=== PATIENT | female | born 1940 | race Caucasian/White ===

== ENCOUNTER 2016-09-15 17:36 | Inpatient (IN) ==
--- NOTE | 2016-09-15 19:22 | PROVIDER DOCUMENTATION ---
HPI-General Adult - General Chief Complaint: Extremity Pain Stated Complaint: FOOT INJURY Time Seen by Provider: 09/15/16 19:07 Source: patient Allergies/Adverse Reactions: Patient Allergies Allergy/AdvReac Type Severity Reaction Status Date / Time No Known Allergies Allergy Verified 12/22/13 21:06 Home Medications: Home Medication List Medication Instructions Recorded Confirmed Last Taken Type Amitriptyline HCl 100 mg PO QHS 12/22/13 12/22/13 12/21/13 History Amlodipine Besylate 5 mg PO DAILY 12/22/13 12/22/13 12/22/13 09:00 History Clopidogrel [Plavix] 75 mg PO DAILY 12/22/13 12/22/13 12/22/13 09:00 History Duloxetine [Cymbalta] 60 mg PO DAILY 12/22/13 12/22/13 12/22/13 09:00 History Hydrocodone/Acetaminophen [[place] 1 each PO TID 12/22/13 12/22/13 12/22/13 15:00 History 10-325 Tablet] Isosorbide Mononitrate E.r. [Imdur] 30 mg PO DAILY 12/22/13 12/22/13 12/21/13 History Metformin [Glucophage] 500 mg PO BID 12/22/13 12/22/13 12/22/13 09:00 History Metoprolol Tartrate 50 mg PO BID 12/22/13 12/22/13 12/22/13 09:00 History Nitroglycerin [Nitrostat] 0.4 mg SL PRN PRN 12/22/13 12/22/13 Unknown History Acetaminophen [Tylenol] 1,000 mg PO Q8H #0 tablet 12/27/13 Unknown Rx Chlorhexidine Gluconate [Peridex] 15 ml MT BID #0 udc 12/27/13 Unknown Rx Docusate Sodium [Colace] 200 mg PO QHS #0 capsule 12/27/13 Unknown Rx Enoxaparin [Lovenox] 40 mg SUBQ Q24H #0 syringe 12/27/13 Unknown Rx Ferrous Sulfate 325 mg PO WBREAKFAST #0 tablet 12/27/13 Unknown Rx Hydrocodone/Acetaminophen [Lortab 1 each PO Q6H PRN #0 tablet 12/27/13 Unknown Rx 10-325 mg Tablet] Magnesium Hydroxide [Milk of 30 ml PO DAILY PRN PRN #0 udc 12/27/13 Unknown Rx Magnesia] Nicotine Patch [Nicoderm Patch] 21 mg TD DAILY #0 patch.td24 12/27/13 Unknown Rx - History of Present Illness -Gen Adult Nature of Presenting Problems: Pt is a 76 y/o F c chief complaint of swollen R foot and first toe. Pt had an abrasion to her toe last week and noticed the swelling and warmth to the toe today. Pt has a h/o diabetic neuropathy. She denies any fever, chills. On arrival, pt is not bearing weight on the right foot. Review of Systems - Adult - REVIEW OF SYSTEMS - ADULT Constitutional: reports: no symptoms reported. denies: chills, fever, fatique Eyes: reports: no symptoms reported. denies: blurred vision, double vision Ears, Nose, Mouth & Throat: reports: no symptoms reported. denies: ear pain, nose pain, throat pain Cardiovascular: reports: no symptoms reported. denies: chest pain, orthopnea Respiratory: reports: no symptoms reported. denies: cough, shortness of breath , wheezing Gastrointestinal: reports: no symptoms reported. denies: abdominal pain, nausea Genitourinary: reports: no symptoms reported. denies: dysuria, hematuria Musculoskeletal: reports: joint pain. denies: joint swelling Integumentary: reports: see HPI, skin sores/ulcer. denies: itching, rash Neurological: reports: see HPI, paresthesia. denies: numbness Psychiatric: reports: no symptoms reported. denies: anxiety, emotional problems Endocrine: reports: no symptoms reported. denies: cold intolerance, heat intolerance Hematologic/Lymphatic: reports: no symptoms reported. denies: blood clots, low blood count Allergic/Immunologic: reports: no symptoms reported. denies: allergic reactions , frequent infections All Other Systems: Reviewed and Negative Past History - Adult - PAST MEDICAL HISTORY-ADULT Review of Records: reports: Old Records Reviewed, Nursing Assessment Review, Medications Reviewed, Social history reviewed & non-contributory. Major Childhood Illnesses: reports: denies history Cardiovascular: reports: HTN Respiratory: reports: denies history Gastrointestinal: reports: denies history Obstetrical/Gynecological: reports: denies history Genitourinary: reports: denies history Musculoskeletal: reports: denies history Neurological: reports: denies history Endocrine/Immune: reports: Diabetes Diabetes Type: Type 2 Diabetes controlled by:: PO Meds Other Conditions: reports: denies history - IMMUNIZATION STATUS Childhood Immunizations: See Nurse Assessment Flu Vaccine: See Nurse Assessment - FAMILY HISTORY Family History: reviewed, not pertinent - SOCIAL HISTORY Smoking: denies Substance Use: none/never Alcohol Use Frequency: never Physical Exam-General - PHYSICAL EXAM-ADULT Initial Vital Signs Reviewed: Yes - CONSTITUTIONAL General Appearance: alert, no apparent distress - EYES Eyes: PERRL/EOMI, pink conjunctivae - HEAD, EARS, NOSE, MOUTH & THROAT HENMT: normocephalic/atraumatic, moist mucous membranes, normal ENT inspection - NECK Neck: normal inspection - RESPIRATORY Respiratory: chest non-tender, lungs clear, normal breath sounds - CARDIOVASCULAR Cardiovascular: normal peripheral pulses, regular rate, rhythm - GASTROINTESTINAL (ABDOMEN) Abdominal Exam: normal bowel sounds, non tender, soft - LYMPHATIC Lymphatic: no adenopathy - MUSCULOSKELETAL Back Exam: normal inspection, no CVA tenderness, no vertebral tenderness Extremity: swelling (R foot, R great toe c abrasion), tenderness - SKIN Integumentary: normal color, normal turgor, warm/dry - NEUROLOGIC Neurologic: grossly normal, no motor/sensory deficits - PSYCHIATRIC Psych/Mental Status: normal mood/affect, normal thought content, normal thought process, oriented x 3 Progress - PLAN OF CARE/RESULTS Progress/Plan/Lab Results: Vital Signs - 8 hr 09/15/16 17:42 Temperature 98.9 F Pulse Rate 88 Respiratory Rate 18 Blood Pressure 131/75 O2 Sat by Pulse Oximetry 96 Laboratory Results - last 24 hr 09/15/16 17:47 POC Glucose 103 Result Diagrams: 09/15/16 19:30 09/15/16 19:30 - CONSULTS/PCP/HOSPITALIST Notification #1 *Consult/PCP/Hospitalist*: Dr. Austin (Hospitalist) Time Discussed: 21:13 Reason/Comments: Agreed c admission. Write transition orders. Departure - Departure Time of Disposition Decision: 21:13 DIAGNOSIS: Diabetic foot infection Disposition: ADMITTED INPATIENT 09 Certified Medical Emergency: Emergent Condition: Stable Referrals and Follow-Ups: Bruce Greenwood MD [Primary Care Provider] - Attestation - Physician/ JOAQUIN Attestation Patient care was provided by Advanced Practice Provider:: Yes Advanced Practice Provider:: Zane Chambers Advanced Practice Provider documentation review:: The Mid-level provider documentation, treatment plan and medical decision making was reviewed by the physician who agrees with all treatment and medical decision making by the MLP.
[2016-09-15] MEDS ORDERED: VANCOMYCIN 1 GM/NS 1 GM/250 ML IVPB IV ONE ×2 (19:23→23:00)
[2016-09-15 19:53] LABS: MANUAL DIFF NEEDED? NO
[2016-09-15 19:55] LABS: BASO% 0.3 % (0.0-0.8); EOS# 0.34 X1000 (0.0-0.7); EOS% 2.2 % (0.0-10.0); HEMATOCRIT 44.1 % (37.0-47.0); HEMOGLOBIN 14.3 g/dL (12.0-16.0); IMM GRAN# 0.07 X1000 (0.0-0.04); IMM GRAN% 0.5 % (0.0-0.5); LYMPH% 30.2 % (20.5-51.1); MCH 28.5 PG (27-31); MCHC 32.4 g/dL (33-37); MONO# 0.76 X1000 (0.11-0.59); MPV 9.4 FL (7.4-10.4); NEUT% 61.8 % (42.2-75.2); PLT 314 X1000 (130-400); RBC 5.01 XMIL (4.2-5.4)
[2016-09-15 20:23] LABS: AGAP 16; ALBUMIN 4.3 g/dL (3.5-5.0); ALKALINE PHOSPHATASE 102 U/L (32-104); BUN 11 mg/dL (8-22); CALCIUM 9.5 mg/dL (8.8-10.2); CHLORIDE 94 mmol/L (98-107); COSMO 271; GOT 10 U/L (10-30); GPT 5 U/L (10-36); POTASSIUM 3.3 mmol/L (3.5-5.1); SODIUM 135 mmol/L (136-145); TCO2 25 mmol/L (25-35); TOTAL PROTEIN 7.9 g/dL (6.3-8.3)
[2016-09-15] MEDS ORDERED: ZOFRAN IV PRN (21:13)
[2016-09-15] MEDS ORDERED: NS 1,000 ML IV ONE (21:13)
[2016-09-15] MEDS ORDERED: VANCOMYCIN IV PER PHARMACY MISC SCH (21:15)
[2016-09-15] MEDS ORDERED: NICODERM PATCH TD PRN (22:28)
[2016-09-15] MEDS ORDERED: NS 1,000 ML ONE (23:21)
[2016-09-15] MEDS: MORPHINE IV PRN (23:24)
[2016-09-16] MEDS: MORPHINE IV PRN ×2 (02:22→04:39)
[2016-09-16] MEDS ORDERED: MORPHINE IV PRN (07:01)
[2016-09-16] MEDS ORDERED: NITROGLYCERIN SL PRN (08:42)
[2016-09-16] MEDS ORDERED: ULTRAM PO PRN (08:42)
[2016-09-16] MEDS ORDERED: TYLENOL PO SCH (08:45)
[2016-09-16] MEDS: LOPRESSOR PO SCH ×2 (09:13→21:26)
[2016-09-16] MEDS: PLAVIX PO SCH (09:14)
[2016-09-16] MEDS: NORCO-10 PO SCH ×4 (09:14→21:26)
[2016-09-16] MEDS: NORVASC PO SCH (09:14)
[2016-09-16] MEDS: MIRALAX PO SCH (09:50)
[2016-09-16] MEDS ORDERED: BACITRACIN OINTMENT TOP ONE (10:28)
[2016-09-16 10:45] LABS: HEMOGLOBIN A1C 5.8 % (4.8-6.0)
--- NOTE | 2016-09-16 13:26 | HISTORY AND PHYSICAL ---
PRIMARY CARE PHYSICIAN: Dr. López. CHIEF COMPLAINT: Right great toe injury. HISTORY OF PRESENT ILLNESS: This is a 76-year-old female with a history of diabetes mellitus, peripheral neuropathy and hypertension. She presented to the emergency room with redness, warmth and had a diabetic ulcer to her right great toe. She states that about a week ago she did bump her toe scratching it. She was unaware of this as she has no feeling due to her diabetic neuropathy. She and have been watching this and as it has not healed and redness emergency room for further evaluation and treatment. She does state that she has injured this foot in last 4 or 5 years has a diabetic ulcer that they were able to maintain at home. She is noted to have swelling to her right foot with an abrasion to the medial of her great toe running to the dorsal side of her toe. She has no drainage. Is noted to have a white count of 15. Blood cultures were drawn in the emergency room. She was given vancomycin IV and admitted for further evaluation and treatment. PAST MEDICAL HISTORY: Diabetes mellitus, peripheral neuropathy, hypertension. PAST SURGICAL HISTORY: Hysterectomy, back and neck surgery. SOCIAL HISTORY: She smokes 2 packs a day. Denies alcohol or illicit drug use. She does live at home with her . ALLERGIES: No known drug allergies. HOME MEDICATIONS: Ultram 50 four times a day p.r.n., MiraLAX 17 g daily, Nitrostat 0.4 sublingual p.r.n., metoprolol tartrate 50 b.i.d., metformin 500 b.i.d., Plavix 75 daily, amlodipine 5 daily, amitriptyline 100 at bedtime, [place] 10/325 four times a day, Tylenol 1000 mg q.8 hours. REVIEW OF SYSTEMS: A 14 point review of systems is discussed with patient with pertinent positives in HPI. She denies chest pain, palpitations, dizziness, syncope, cough, fever, chills, shortness of breath, PND, PASCUAL, a recent weight loss, weight gain, nausea, vomiting, diarrhea, constipation, black or bloody vomitus, black or bloody stools, hematuria, dysuria, frequency, urgency. PHYSICAL EXAM: GENERAL: A 76-year-old female who is sitting up in the bed with no distress. VITAL SIGNS: Blood pressure is 147/85 with heart rate of 98, respirations are 18, temperature is 98.1 degrees oral with room air saturation of 96-98%. HEENT: Head is normocephalic, atraumatic. Pupils equal, round, react to light. EOMs are intact. Sclerae anicteric. Mucous membranes are moist. NECK: Supple. Trachea midline. CARDIOVASCULAR: Regular rate and rhythm S1, S2 appreciated. PULMONARY: Breath sounds are clear. No increased work of breathing noted. GASTROINTESTINAL: Abdomen is soft, nontender, nondistended. Bowel sounds in all 4 quadrants. BACK: No CVAT. No spine tenderness. MUSCULOSKELETAL: Good range of motion to joints. EXTREMITIES: No clubbing, cyanosis or edema. Pulses are palpable. Calves are nontender. SKIN: Warm and dry. She does have an abrasion on the medial side of her right great toe that does run to the dorsal side. There is some redness, some edema with no drainage. DIAGNOSTICS: WBC is 15.2 with hemoglobin 14.3, hematocrit 44.1 and platelets of 314,000. Sodium is 135, potassium 3.3, BUN 11, creatinine 0.7 with a glucose 119. Her A1c is 5.8. Blood cultures are pending. X-ray of her right foot is pending. ASSESSMENT AND PLAN: 1. Diabetic ulcer right great toe. 2. Diabetes mellitus with peripheral neuropathy. 3. Coronary artery disease status post stents. 4. Hypertension. She will be admitted to the hospital. We will continue vancomycin. We will apply bacitracin with Telfa. Will identify and continue her home medications. Wound Care will be consulted. Will await results of right foot x-ray. Of course if osteomyelitis is present we will call Orthopedics. Further treatments pending hospital course. Dictated by PAMELA Yao for Jagdish Austin MD cc: PAMELA Yao MD
[2016-09-16] MEDS ORDERED: TYLENOL PO PRN (14:06)
[2016-09-16] MEDS ORDERED: VANCOMYCIN 1,700 MG in NS 250 ML IV SCH (20:00)
[2016-09-16] MEDS ORDERED: ELAVIL PO SCH (21:00)
[2016-09-17 06:29] LABS: HEMATOCRIT 36.6 % (37.0-47.0); HEMOGLOBIN 11.6 g/dL (12.0-16.0); MCH 28.3 PG (27-31); MCHC 31.7 g/dL (33-37); MCV 89.3 FL (81-99); MPV 9.2 FL (7.4-10.4); RBC 4.1 XMIL (4.2-5.4)
[2016-09-17 06:53] LABS: AGAP 8; BUN 10 mg/dL (8-22); CALCIUM 8.6 mg/dL (8.8-10.2); CHLORIDE 106 mmol/L (98-107); COSMO 279; SODIUM 140 mmol/L (136-145); TCO2 26 mmol/L (25-35)
[2016-09-17] MEDS: PLAVIX PO SCH (10:02)
[2016-09-17] MEDS: NORVASC PO SCH (10:02)
[2016-09-17] MEDS: MIRALAX PO SCH (10:02)
[2016-09-17] MEDS: LOPRESSOR PO SCH (10:03)
[2016-09-17] MEDS: NORCO-10 PO SCH ×2 (10:03→13:08)
[2016-09-17 12:19] VITALS: BP 149/87
[2016-09-17 12:44] LABS: URINE CULTURE PL NEEDED? NO
[2016-09-17 13:08] LABS: BILIRUBIN URINE NEGATIVE (NEGATIVE); BLOOD URINE NEGATIVE (NEGATIVE); CLARITY CLEAR (CLEAR); COLOR YELLOW; GLUCOSE URINE NEGATIVE (NEGATIVE); LEUKOCYTES URINE NEGATIVE (NEGATIVE); NITRITE URINE NEGATIVE (NEGATIVE); PROTEIN URINE NEGATIVE (NEGATIVE); UROBILINOGEN URINE NORMAL
[2016-09-17 13:11] LABS: URINE EPITHELIAL CELLS <10 /HPF (<10); URINE SOURCE CLEAN CATCH
--- NOTE | 2016-09-17 22:22 | DISCHARGE SUMMARY ---
ADMISSION DATE: 09/15/2016 DISCHARGE DATE: 09/17/2016 DISCHARGE DIAGNOSES: 1. Diabetic ulcer right great toe. 2. Diabetes with known peripheral neuropathy. 3. Known coronary artery disease status post multiple stents. 4. Hypertension. 5. Chronic tobacco abuse. Patient continues to smoke despite multiple discussions in the past. CONSULTATIONS: None. PROCEDURES: None. HOSPITAL COURSE: Patient is a 76-year-old female who unfortunately appears to be noncompliant at times with her medical care. She continues to smoke despite knowing that this is dangerous given her diabetes and known coronary artery disease. She had an injury on her right foot that she did not tell anyone until the daughter noticed blood on her side. She continued to attempt to hide it. At that point, she was brought to the emergency department and subsequently admitted, placed on IV antibiotics and vancomycin. She thankfully had an uneventful hospital course. On discharge she is awake, alert. She is oriented. She is in no distress. She is feeling better. HEENT: Normocephalic. Neck supple. Right foot has no drainage it is dry, has been bandaged by wound care. PLAN: Patient will be discharged home. We will stop vancomycin and discharge her home on Bactrim. She will follow up outpatient in 1-2 days with her primary care. She has an appointment already with Dr. Greenwood. No other changes were made. She will be discharged home with a prescription for [place] as well. No other prescriptions were written at discharge. cc: Jagdish Austin MD
--- NOTE | 2016-09-18 07:46 | Diag Imaging Result Document ---
PROCEDURE NAME: FOOT COMPLETE RIGHT - 09/15/2016 FINDINGS: Bones are osteopenic. No obvious fracture or dislocation. There are extensive degenerative changes, mainly at the great toe and the first metatarsophalangeal joint and the interphalangeal joint. There are also degenerative heal spurs. There is mild pedal edema. IMPRESSION: Nonspecific findings. No definite acute disease.
== END 2016-09-17 16:55 | disposition home or self-care (01) ==
LOC: P.ED 17:36 → P.MEDSURG 21:24
PROVIDERS: ATTEND Family Medicine

== ENCOUNTER 2016-12-10 10:49 | Inpatient (IN) ==
[2016-12-10] MEDS ORDERED: NS 1,000 ML IV ONE (11:27)
[2016-12-10] MEDS ORDERED: VANCOMYCIN IV PER PHARMACY MISC SCH (11:30)
[2016-12-10] MEDS: ZOSYN 3.375 GM/NS 3.375 GM/50 ML IVPB IV SCH ×3 (12:02→23:15)
[2016-12-10 12:04] LABS: MANUAL DIFF NEEDED? NO
[2016-12-10 12:08] LABS: BASO% 0.3 % (0.0-0.8); EOS# 0.18 X1000 (0.0-0.7); EOS% 2.1 % (0.0-10.0); HEMATOCRIT 38.6 % (37.0-47.0); HEMOGLOBIN 12.7 g/dL (12.0-16.0); IMM GRAN# 0.02 X1000 (0.0-0.04); IMM GRAN% 0.2 % (0.0-0.5); LYMPH# 3.07 X1000 (1.2-3.4); LYMPH% 35.5 % (20.5-51.1); MCH 28.9 PG (27-31); MCHC 32.9 g/dL (33-37); MCV 87.7 FL (81-99); MONO% 5.8 % (1.7-9.3); MPV 9.6 FL (7.4-10.4); NEUT% 56.1 % (42.2-75.2); PLT 224 X1000 (130-400)
[2016-12-10 12:27] LABS: AGAP 13; ALBUMIN 3.9 g/dL (3.5-5.0); ALKALINE PHOSPHATASE 94 U/L (32-104); BUN 9 mg/dL (8-22); CALCIUM 8.8 mg/dL (8.8-10.2); CHLORIDE 97 mmol/L (98-107); COSMO 271; GOT 9 U/L (10-30); GPT < 5 U/L (10-36); POTASSIUM 3.4 mmol/L (3.5-5.1); SODIUM 135 mmol/L (136-145); TCO2 25 mmol/L (25-35); TOTAL PROTEIN 6.4 g/dL (6.3-8.3)
[2016-12-10] MEDS ORDERED: VANCOMYCIN 2,000 MG in NS 500 ML IV ONE (14:00)
[2016-12-10] MEDS ORDERED: ZOFRAN IV PRN (14:22)
[2016-12-10] MEDS: NORCO-10 PO SCH ×2 (14:46→21:07)
[2016-12-10] MEDS ORDERED: NITROGLYCERIN SL PRN (15:15)
[2016-12-10] MEDS: HUMALOG DOSE (PARKWAY) SUBQ SCH ×2 (17:01→21:57)
--- NOTE | 2016-12-10 18:05 | HISTORY AND PHYSICAL ---
PRIMARY CARE PHYSICIAN: Dr. Greenwood. CHIEF COMPLAINT: Diabetic ulcer to right great toe. HISTORY OF PRESENT ILLNESS: This is a 76-year-old female with a history of insulin-dependent diabetes, peripheral neuropathy, hypertension and chronic ulcer to the right great toe. She presented to the emergency room complaining of redness, warmth and swelling to her right foot which has been ongoing since September 2016 maybe before that. She has had 1 hospitalization for this. She does have neuropathy so she does not feel in her foot but she noticed her toes becoming red and a scabbed area on the top of her right great toe for which she was given Levaquin and this was December 05. She states that this has not gotten better, in fact it has probably gotten worse over the last week. She denies any known injury. Her foot is noted the toes and up on the top of her foot edematous and red, it is red to about 3 inches above her ankle and warm. There is no drainage at present. In the emergency room she was given vancomycin and Zosyn and admitted for further evaluation and treatment. PAST MEDICAL HISTORY: Diabetes mellitus, peripheral neuropathy, hypertension, diabetic ulcer to this right great toe. PAST SURGICAL HISTORY: Hysterectomy, back and neck surgery. SOCIAL HISTORY: She smokes 2 packs a day. Denies alcohol or illicit drug use. She does live at home with her . ALLERGIES: No known drug allergies. HOME MEDICATIONS: A list will be obtained. REVIEW OF SYSTEMS: A 14 point review of systems is discussed with patient with pertinent positives stated in HPI. She denies chest pain, palpitations, dizziness, syncope, shortness of breath, cough, fever, chills, nausea, vomiting, diarrhea, constipation, black or bloody vomitus, black or bloody stools, any hematuria, dysuria, frequency, urgency. PHYSICAL EXAMINATION: GENERAL: This is a 76-year-old female who is sitting in the bed in no distress. VITAL SIGNS: Blood pressure is 138/70 with a heart rate of 87, respirations are 20, temperature is 98.3 degrees with room air saturations of 99%. HEENT: Head is normocephalic, atraumatic. Pupils equal, round, react to light. EOMs are intact. Sclerae are anicteric. Mucous membranes are moist. NECK: Supple with trachea midline. CARDIOVASCULAR: Regular rate and rhythm. S1 and S2 appreciated. PULMONARY: Breath sounds are clear with no increased work of breathing noted. GASTROINTESTINAL: Abdomen soft, nontender, nondistended with bowel sounds in all 4 quadrants. MUSCULOSKELETAL: Good range of motion of joints. EXTREMITIES: No clubbing, cyanosis, or edema to upper extremities and left lower extremity. She does have edema to the foot and just above the ankle to her right lower extremity as well as redness and warmth to the top of her foot just above her ankle. Calves are nontender. Pulses are palpable x4. SKIN: Warm and dry. She does have an abrasion to the medial side of her right great toe which is intact. DIAGNOSTICS: WBC is 8.6 with hemoglobin 12.7, hematocrit 38.6 and platelets of 224,000. Sodium is 135, potassium 3.4, BUN 9, creatinine 0.7 with a glucose of 134. ASSESSMENT AND PLAN: 1. Diabetic ulcer to the right great toe chronic. 2. Cellulitis to the right foot. 3. Peripheral neuropathy. 4. Hypertension. PLAN: She will be admitted to the hospital. She will be placed on telemetry. We will obtain blood cultures. Will x-ray her right foot. We will continue vancomycin dosed per pharmacy as well as Zosyn. If osteomyelitis is present orthopedics will be consulted. We will consult wound care. Further treatments pending hospital course. Dictated by PAMELA Yao for Jagdish Austin MD cc: PAMELA Yao MD
[2016-12-10] MEDS: ELAVIL PO SCH (21:07)
[2016-12-10] MEDS: LOPRESSOR PO SCH (21:08)
[2016-12-11] MEDS: NORCO-10 PO SCH ×4 (02:04→20:42)
[2016-12-11] MEDS: ZOSYN 3.375 GM/NS 3.375 GM/50 ML IVPB IV SCH ×4 (05:10→23:09)
[2016-12-11] MEDS: HUMALOG DOSE (PARKWAY) SUBQ SCH ×4 (06:11→20:43)
[2016-12-11 06:43] LABS: AGAP 10; ALKALINE PHOSPHATASE 75 U/L (32-104); BUN 8 mg/dL (8-22); CALCIUM 8.3 mg/dL (8.8-10.2); CHLORIDE 105 mmol/L (98-107); COSMO 276; GOT 9 U/L (10-30); GPT < 5 U/L (10-36); POTASSIUM 3.3 mmol/L (3.5-5.1); SODIUM 139 mmol/L (136-145); TCO2 24 mmol/L (25-35); TOTAL PROTEIN 5.6 g/dL (6.3-8.3)
[2016-12-11 07:03] LABS: HEMATOCRIT 33.7 % (37.0-47.0); HEMOGLOBIN 10.7 g/dL (12.0-16.0); MCH 28.4 PG (27-31); MCHC 31.8 g/dL (33-37); MCV 89.4 FL (81-99); MPV 9.9 FL (7.4-10.4); RBC 3.77 XMIL (4.2-5.4)
--- NOTE | 2016-12-11 08:09 | Diag Imaging Result Doc PS360 ---
EXAM: FOOT COMPLETE RIGHT - 12/10/2016 HISTORY: cellulitis, diabetic ulcer r. great toe TECHNIQUE: Right foot three views COMPARISON: 09/15/2016 FINDINGS: The bones appear osteopenic, similar to the prior exam. There is calcaneal spurring which is most prominent at the plantar fascia insertion. There are degenerative changes elsewhere, most prominent at the first metatarsophalangeal joint and at several interphalangeal joints. There are nondisplaced fractures of the proximal portions of the proximal phalanges of the third and fifth toes. There is possible nondisplaced fracture at the distal head of the first metatarsal. There are no discrete erosive or destructive changes identified. IMPRESSION: Apparent osteopenia. Degenerative changes. Nondisplaced fractures of proximal phalanges of third and fifth toes. Possible nondisplaced fracture of distal head of first metatarsal. No discrete evidence of osteomyelitis. Please note that early osteomyelitis can be radiographically occult. Electronically signed by Dustin Woodson 12/11/2016 8:07 AM
[2016-12-11] MEDS: PLAVIX PO SCH (09:03)
[2016-12-11] MEDS: LOPRESSOR PO SCH ×2 (09:03→20:42)
[2016-12-11] MEDS: MIRALAX PO SCH (09:03)
[2016-12-11] MEDS: NORVASC PO SCH (09:04)
--- NOTE | 2016-12-11 11:26 | PROGRESS NOTE ---
DATE: 12/11/2016 SUBJECTIVE: The patient notes that she is feeling better. She denies any pain in her feet, but notes that she does not typically have pain in her feet. Notes the swelling is much better in her right foot. OBJECTIVE: Vital Signs: Temperature 98.7, pulse 70, respiratory rate 18, blood pressure 123/59, sat 99% on room air. General: Patient is awake, alert, currently in no real respiratory distress. Pleasant to talk with. Neck: Supple. Cardiovascular: Regular rate. Chest: Relatively clear. Abdomen: Soft. Extremities: Moves all extremities. Right lower extremity, she is noted to have less erythema, less swelling, less edema, though she actually now has wrinkles in the skin. Has no drainage. She has no palpable pulses either. ASSESSMENT: 1. Cellulitis. 2. Peripheral vascular disease. 3. Diabetes type 2. PLAN: We will continue to follow. Further orders as needed. We will continue antibiotics today. We will check an arterial Doppler. Hopefully, she can be discharged home in the next day or 2. Her x-ray did not show any occult osteomyelitis. Certainly this will need to be followed-up outpatient. cc: Jagdish Austin MD
[2016-12-11] MEDS ORDERED: VANCOMYCIN 1,500 MG in NS 250 ML IV SCH (14:00)
[2016-12-11] MEDS: ELAVIL PO SCH (20:42)
[2016-12-12] MEDS: NORCO-10 PO SCH ×2 (05:12→08:45)
[2016-12-12] MEDS: ZOSYN 3.375 GM/NS 3.375 GM/50 ML IVPB IV SCH ×2 (06:16→11:07)
[2016-12-12] MEDS: HUMALOG DOSE (PARKWAY) SUBQ SCH ×2 (06:17→10:48)
[2016-12-12 07:05] LABS: HEMATOCRIT 37.3 % (37.0-47.0); HEMOGLOBIN 11.9 g/dL (12.0-16.0); MCH 28.3 PG (27-31); MCHC 31.9 g/dL (33-37); MCV 88.8 FL (81-99); RBC 4.2 XMIL (4.2-5.4)
[2016-12-12 07:21] LABS: AGAP 7; ALBUMIN 3.6 g/dL (3.5-5.0); ALKALINE PHOSPHATASE 79 U/L (32-104); BUN 9 mg/dL (8-22); CALCIUM 8.6 mg/dL (8.8-10.2); CHLORIDE 108 mmol/L (98-107); COSMO 278; GOT 10 U/L (10-30); GPT 5 U/L (10-36); POTASSIUM 3.9 mmol/L (3.5-5.1); SODIUM 140 mmol/L (136-145); TCO2 25 mmol/L (25-35); TOTAL PROTEIN 6.3 g/dL (6.3-8.3)
[2016-12-12 07:50] VITALS: BP 132/58
[2016-12-12] MEDS: LOPRESSOR PO SCH (09:36)
[2016-12-12] MEDS: MIRALAX PO SCH (09:36)
[2016-12-12] MEDS: NORVASC PO SCH (09:36)
[2016-12-12] MEDS: PLAVIX PO SCH (09:36)
[2016-12-12] MEDS ORDERED: LEVAQUIN PO ONE (14:03)
[2016-12-12] MEDS ORDERED: DOXYCYCLINE PO SCH (21:00)
--- NOTE | 2016-12-13 06:34 | DISCHARGE SUMMARY ---
ADMISSION DATE: 12/11/2016 DISCHARGE DATE: 12/12/2016 DISPOSITION: Home. FOLLOWUP: Will be with patient's PCP, Dr. Greenwood. CONSULTATION DURING THIS ADMISSION: None. IMAGING STUDIES OF SIGNIFICANCE: An x-ray of the foot was done on presentation which shows no discrete evidence of osteomyelitis. ADMISSION DIAGNOSES: 1. Diabetic ulcer to the right great toe. 2. Cellulitis to the right foot. 3. Peripheral neuropathy. 4. Hypertension. DISCHARGE DIAGNOSES: 1. Chronic diabetic ulcer to the right great toe. 2. Cellulitis to the right great toe. X-ray with no evidence of osteomyelitis. 3. Diabetic peripheral neuropathy. 4. Hypertension. 5. Obesity with body mass index of 31. DISCHARGE MEDICATIONS: 1. Metformin 500 b.i.d. 2. Clopidogrel 75 daily. 3. Amlodipine 5 mg daily. 4. Amitriptyline 100 mg daily. 5. Metoprolol 50 b.i.d. 6. Tramadol. 7. Levofloxacin 250 p.o. daily. 8. Doxycycline 100 mg b.i.d. PRESENTING COMPLAINT: Redness to the right foot. HISTORY OF PRESENTING COMPLAINT: Ms. Hayes is a 76-year-old female, with history of insulin-dependent diabetes mellitus, peripheral neuropathy, hypertension, who presented to the emergency department because of swelling and redness to the right big toe, associated with some chills. Upon presentation, patient was evaluated, found to have cellulitis and was admitted for further medical care. HOSPITAL COURSE: X-ray was done to rule out possible osteomyelitis which was negative. The patient was started on IV antibiotics. She had a total of 3 days of IV antibiotics and the swelling, pain, and redness all resolved. On the day of discharge, the patient referred to be doing a lot better. Vitals were reviewed, completely stable. Lab work was reviewed and completely unremarkable. The patient was therefore discharged in a very stable condition to follow up with Dr. Greenwood in about a week. At that at the time of discharge, there is not any pending labs or imaging studies. TIME SPENT FOR DISCHARGE: Thirty-six minutes. cc: Castillo Barbosa MD
[2016-12-13] MEDS ORDERED: LEVAQUIN PO SCH (09:00)
--- NOTE | 2016-12-13 12:55 | VASCULAR LAB ---
PROCEDURE NAME: Arterial Bilateral Legs - 12/11/2016 DATE OF STUDY: 12/11/2016. REQUESTING PHYSICIAN: Dr. Villarreal. INDICATION: Bilateral lower extremity wounds on the greater toe with right being worse than left. Previous study from 07/02/2012. FINDINGS: Segmental pressures are as follows: Right brachial 137, left 137; right proximal thigh 147, left 112; right distal thigh 122, left 80; right popliteal 108, left 95; right dorsalis pedis 82, left 61; right posterior tibial 88, left 101; right toe 33, left 30; right DESTINY 0.64, left 0.74; right TBI 0.24, left 0.22. Waveform analysis: Waveforms appear to be blunted and biphasic starting at the level of the thigh suggesting central disease. The waveforms become significantly blunted at the level of the ankle bilaterally, but there is a waveform noted to the toes to suggest some degree of perfusion. The DESTINY's on both sides suggest moderate degree of stenosis. INTERPRETATION: Moderate peripheral vascular disease and stenosis noted to bilateral lower extremities. There likely is a central aortic etiology of this given the bilateral nature. A CT angiography would likely elucidate this further. Patient's DESTINY suggests likely to have some degree of difficulty with wound healing. cc: MD Raul Mendez MD
--- NOTE | 2016-12-25 20:58 | PROVIDER DOCUMENTATION ---
This chart was entered by Natalie Dos Santos Scribe, acting as scribe for Raul Villarreal MD. HPI-Rash/Wound/ReCheck - General Chief Complaint: Extremity Pain Stated Complaint: SORE ON FOOT/DIABETIC Time Seen by Provider: 12/10/16 11:26 Source: patient Allergies/Adverse Reactions: Allergies Allergy/AdvReac Type Severity Reaction Status Date / Time No Known Allergies Allergy Verified 12/10/16 11:02 Home Medications: Home Medication List Medication Instructions Recorded Confirmed Last Taken Type Amitriptyline HCl 100 mg PO QHS 12/22/13 09/15/16 12/21/13 History Amlodipine Besylate 5 mg PO DAILY 12/22/13 09/15/16 12/22/13 09:00 History Clopidogrel [Plavix] 75 mg PO DAILY 12/22/13 09/15/16 12/22/13 09:00 History Hydrocodone/Acetaminophen [[place] 1 each PO 4XDAY 12/22/13 09/15/16 12/22/13 15: 00 History 10-325 Tablet] Metformin [Glucophage] 500 mg PO BID 12/22/13 09/15/16 12/22/13 09:00 History Metoprolol Tartrate 50 mg PO BID 12/22/13 09/15/16 12/22/13 09:00 History Nitroglycerin [Nitrostat] 0.4 mg SL PRN PRN 12/22/13 09/15/16 Unknown History Acetaminophen [Tylenol] 1,000 mg PO Q8H #0 tablet 12/27/13 09/15/16 Unknown Rx Polyethylene Glycol 3350 [Miralax] 17 gm PO DAILY 09/15/16 09/15/16 Unknown History Tramadol HCl [Ultram] 50 mg PO 4XDAY PRN PRN 09/15/16 09/15/16 Unknown History Bacitracin Ointment 1 applicatn TOP TID #1 tube 09/17/16 Unknown Rx Sulfamethoxazole/Trimethoprim 1 each PO DAILY #20 tablet 09/17/16 Unknown Rx [Bactrim Ds Tablet] - History of Present Illness-Dermatology Nature of Presenting Problem: Pt is 76 y/o F presents to the ED with decubitus ulcers to bilateral feet. Pt's family member states Pt has diabetic neuropathy. Pt states she can not feel from her ankles down. Pt denies F Location: reports: feet Quality: reports: painful Severity: reports: moderate Onset/Duration: reports: unsure Timing: reports: still present, getting worse Context/Associated Symptoms: reports: other (decubitus ulcers to bilateral feet. ) Identifiable cause?: No Locality of Occurance: Home Similar Symptoms Previously?: Yes Recently seen or treated by another doctor?: No Review of Systems - Adult - REVIEW OF SYSTEMS - ADULT Constitutional: reports: no symptoms reported Eyes: reports: no symptoms reported Ears, Nose, Mouth & Throat: reports: no symptoms reported Cardiovascular: reports: no symptoms reported Respiratory: reports: no symptoms reported Gastrointestinal: reports: no symptoms reported Genitourinary: reports: no symptoms reported Musculoskeletal: reports: no symptoms reported Integumentary: reports: other (decubitus ulcers to bilateral feet). denies: hives, itching, rash Neurological: reports: no symptoms reported Psychiatric: reports: no symptoms reported Endocrine: reports: no symptoms reported Hematologic/Lymphatic: reports: no symptoms reported Allergic/Immunologic: reports: no symptoms reported All Other Systems: Reviewed and Negative Past History - Adult - PAST MEDICAL HISTORY-ADULT Review of Records: reports: Nursing Assessment Review, Medications Reviewed, Social history reviewed & non-contributory. Major Childhood Illnesses: reports: denies history Cardiovascular: reports: HTN Respiratory: reports: denies history Gastrointestinal: reports: denies history Obstetrical/Gynecological: reports: denies history Genitourinary: reports: denies history Musculoskeletal: reports: denies history Neurological: reports: denies history Endocrine/Immune: reports: Diabetes Other Conditions: reports: denies history - PRIOR SURGERIES/PROCEDURES Surgical/Procedure History: reports: hysterectomy - IMMUNIZATION STATUS Childhood Immunizations: See Nurse Assessment Flu Vaccine: See Nurse Assessment - FAMILY HISTORY Family History: reviewed, not pertinent - SOCIAL HISTORY Smoking: cigarettes, greater than 1 pack/day Provider spent 3-5 mins advising pt. on dangers of tobacco.: Discussed manners to quit use, and f/u contacts for add'l counseling. Substance Use: denies Living Situation: family Physical Exam-General - PHYSICAL EXAM-ADULT Initial Vital Signs Reviewed: Yes - CONSTITUTIONAL General Appearance: appears well, alert, no apparent distress - EYES Eyes: PERRL/EOMI, pink conjunctivae - HEAD, EARS, NOSE, MOUTH & THROAT HENMT: normal ENT inspection - NECK Neck: non-tender, normal inspection - RESPIRATORY Respiratory: chest non-tender, lungs clear, normal breath sounds - CARDIOVASCULAR Cardiovascular: normal peripheral pulses, regular rate, rhythm - GASTROINTESTINAL (ABDOMEN) Abdominal Exam: normal bowel sounds, non tender, soft - LYMPHATIC Lymphatic: no adenopathy - MUSCULOSKELETAL Back Exam: normal inspection Extremity: normal range of motion, deformity (bilateral toes), slow capillary refill, other (decubitus uclers to ebony feet). negative: normal gait Peripheral Pulses: dorsalis-pedis (R): 0, dorsalis-pedis (L): 0 - SKIN Integumentary: warm/dry, decubitus (bilateral feet.) - NEUROLOGIC Neurologic: grossly normal - PSYCHIATRIC Psych/Mental Status: normal mood/affect Progress - PLAN OF CARE/RESULTS Progress/Plan/Lab Results: Vital Signs - 8 hr 12/10/16 10:59 Temperature 98.1 F Pulse Rate 84 Respiratory Rate 18 Blood Pressure 141/070 O2 Sat by Pulse Oximetry 98 Orders Category Date Time Status Admit - [facility] Routine AdmDCTranf 12/10/16 11:27 Ordered Activity - Bed Rest with BRP ORDERED Care 12/10/16 11:27 Active Vital Signs Order Q 8-HR .ASSESS Care 12/10/16 11:27 Active Diabetic Diet Diet 12/10/16 11:28 Active 0.9% Sodium Chloride Inj [Ns] 1,000 ml Med 12/10/16 11:27 Ordered IV 75 mls/hr - CONSULTS/PCP/HOSPITALIST Notification #1 *Consult/PCP/Hospitalist*: Dr. Austin/ Hospitalist Time Discussed: 11:32 (Hospitalist accepted admit ) Reason/Comments: Dr. Villarreal consulted with Dr. Austin about admit of Pt Consult Disposition: Will see in ED, Admit Departure - Departure Date of Disposition Decision: 12/10/16 Time of Disposition Decision: 11:32 DIAGNOSIS: Diabetic foot ulcers Disposition: ADMITTED INPATIENT 09 Certified Medical Emergency: Emergent Condition: Fair Referrals and Follow-Ups: Bruce Greenwood MD [Primary Care Provider] - - Critical Care Note This patient required my direct & personal management of CC.: No This chart was documented by the indicated scribe, (Natalie Dos Santos Scribe) and accurately reflects the services I performed and decisions made by me, Raul Villarreal MD, as attested by the provider's signature.
== END 2016-12-12 14:29 | disposition home or self-care (01) ==
LOC: P.ED 10:49 → P.MEDSURG 10:49 → SUATTDRO 12-11 11:10
PROVIDERS: ATTEND Internal Medicine

== ENCOUNTER 2018-06-24 11:48 | Inpatient (IN) ==
[2018-06-24 12:47] LABS: BASO# 0.01 X1000 (0.0-0.2); BASO% 0.1 % (0.0-0.8); EOS# 0.03 X1000 (0.0-0.7); EOS% 0.4 % (0.0-10.0); HEMATOCRIT 27.3 % (37.0-47.0); HEMOGLOBIN 8.3 g/dL (12.0-16.0); IMM GRAN# 0.02 X1000 (0.0-0.04); IMM GRAN% 0.2 % (0.0-0.5); LYMPH# 0.97 X1000 (1.2-3.4); LYMPH% 11.5 % (20.5-51.1); MCH 26.5 PG (27-31); MCHC 30.4 g/dL (33-37); MCV 87.2 FL (81-99); MONO# 0.53 X1000 (0.11-0.59); MONO% 6.3 % (1.7-9.3); NEUT# 6.84 X1000 (1.4-6.5); NEUT% 81.5 % (42.2-75.2); PLT 296 X1000 (130-400); RBC 3.13 XMIL (4.2-5.4); RDW 14.6 % (11.5-14.5)
--- NOTE | 2018-06-24 12:48 | Diag Imaging Result Doc PS360 ---
EXAM: CHEST-1 VIEW HISTORY: AMS TECHNIQUE: Chest two views COMPARISON: 06/20/2018 FINDINGS: The lungs are well expanded. The heart is not enlarged. The vessels are not distended. There are no infiltrates. No effusion identified. IMPRESSION: Negative exam. Electronically signed by Samson Lee 06/24/2018 12:46 PM
--- NOTE | 2018-06-24 12:51 | Diag Imaging Result Doc PS360 ---
EXAM: CT HEAD W/O CONTRAST HISTORY: ams TECHNIQUE: CT head without contrast COMPARISON: 06/20/2018 FINDINGS: No parenchymal hemorrhage. No epidural or subdural hematoma. No subarachnoid hemorrhage. There are chronic microvascular ischemic changes. No mass identified on this noncontrasted exam. No hydrocephalus. No sinus opacification. IMPRESSION: 1.No hemorrhage 2.Chronic microvascular ischemic changes. An MRI is recommended if there is clinical concern for an acute infarct. This exam was performed using automated exposure control, adjustment of mA or kV according to patient size, and/or use of iterative reconstruction technique. Electronically signed by Samson Lee 06/24/2018 12:48 PM
[2018-06-24 12:54] LABS: BILIRUBIN URINE NEGATIVE (NEGATIVE); BLOOD URINE NEGATIVE (NEGATIVE); CLARITY CLEAR (CLEAR); COLOR YELLOW; GLUCOSE URINE NEGATIVE (NEGATIVE); KETONE URINE NEGATIVE (NEGATIVE); LEUKOCYTES URINE NEGATIVE (NEGATIVE); NITRITE URINE NEGATIVE (NEGATIVE); PROTEIN URINE TRACE mg/dL (NEGATIVE); UROBILINOGEN URINE NORMAL
[2018-06-24 13:05] LABS: URINE WBC <10 /HPF (<10)
[2018-06-24 13:06] LABS: URINE EPITHELIAL CELLS >10 /HPF (<10); URINE SOURCE CATH
[2018-06-24 13:09] LABS: UR AMPHETAMINES QUAL NONE DETECTED (NONE DETECT); UR BARBITUATES QUAL NONE DETECTED (NONE DETECT); UR BENZODIAZEPIN QUAL NONE DETECTED (NONE DETECT); UR CANNABINOIDS QUAL NONE DETECTED (NONE DETECT); UR COCAINE QUAL NONE DETECTED (NONE DETECT); UR METHADONE QUAL NONE DETECTED (NONE DETECT); UR METHAMPHETAMINE QUAL NONE DETECTED (NONE DETECT); UR OPIATES QUAL PRESUMPTIVE POSITIVE (NONE DETECT); UR OXYCODONE QUAL NONE DETECTED (NONE DETECT); UR PCP QUAL NONE DETECTED (NONE DETECT); UR PROPOXYPHENE QUAL NONE DETECTED (NONE DETECT); UR TCA QUAL PRESUMPTIVE POSITIVE (NONE DETECT)
[2018-06-24 13:09] LABS: AGAP 12; BUN 14 mg/dL (8-22); CALCIUM 8.3 mg/dL (8.8-10.2); CHLORIDE 103 mmol/L (98-107); COSMO 276; CREATININE 0.6 mg/dL (0.5-0.9); ESTIMATED GFR > 60; GLUCOSE 101 mg/dL (70-104); POTASSIUM 3.7 mmol/L (3.5-5.1); SODIUM 138 mmol/L (136-145); TCO2 23 mmol/L (25-35)
[2018-06-24] MEDS ORDERED: ASPIRIN PR ONE (13:41)
[2018-06-24] MEDS ORDERED: NS 1,000 ML IV ONE (13:44)
--- NOTE | 2018-06-24 13:44 | PROVIDER DOCUMENTATION ---
This chart was entered by Shala Hernandez Scribe, acting as scribe for Dae Hernandez MD. 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) Allergies/Adverse Reactions: Patient Allergies Allergy/AdvReac Type Severity Reaction Status Date / Time No Known Allergies Allergy Verified 06/11/18 13:14 Home Medications: Home Medication List Medication Instructions Recorded Confirmed Last Taken Type Amitriptyline HCl 100 mg PO DAILY 12/22/13 06/20/18 06/20/18 14:15 History Clopidogrel [Plavix] 75 mg PO DAILY 12/22/13 06/20/18 06/20/18 14:15 History Metformin [Glucophage] 2 tab PO BID 12/22/13 06/20/18 06/11/18 History Nitroglycerin [Nitrostat] 0.4 mg SL PRN PRN 12/22/13 06/20/18 Unknown History Apixaban [Eliquis] 5 mg PO BID #60 tab 06/06/18 06/20/18 06/20/18 14:15 Rx Hydrocodone Bit/Acetaminophen 1 each PO Q6H PRN 06/11/18 06/20/18 Unknown History [Hydrocodon-Acetaminoph 7.5-325] Furosemide [Lasix] 40 mg PO DAILY tablet 06/13/18 06/20/18 Unknown Rx Sotalol [Betapace] 80 mg PO BID #60 tab 06/13/18 06/20/18 06/20/18 14:15 Rx - History of Present Illness-Neuro Nature of Presenting Problem: 78 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 EMS reports that 1 hour ago pt had sudden onset of AMS became nonverbal and unresponsive. Pt is Alert and Oriented x 1 with slurred speech. Pt eyes are PEARLL. BS was 97. Pt is on eloquis. Pt was recently seen at ED for same symptom of AMS. MRI was done on 06/20/17 and its results were as follows: EXAM: MRI BRAIN W/WO CONTRAST HISTORY: altered mental status TECHNIQUE: MRI brain with and without contrast. Axial, sagittal, and coronal images obtained in multiple sequences. These are followed the post contrasted axial and coronal images. COMPARISON: CT performed earlier FINDINGS: No recent infarct. There are chronic microvascular ischemic changes and atrophy. No mass or midline shift. No enhancing lesion on the post contrasted images. No hydrocephalus. No epidural or subdural fluid collection. Normal orbits. No sinus opacification. IMPRESSION: Mild atrophy with chronic microvascular ischemic changes. Electronically signed by Samson Lee 06/20/2018 4:16 PM 06/20/18 8086 Interpreting Physician: Samson Lee MD Dictated Date/Time: 06/20/18 1619 cc: Evita Bingham MD; Jagdish Austin MD Severity: reports: severe Onset/Duration: reports: 1 hour ago Timing: reports: still present Review of Systems - Adult - REVIEW OF SYSTEMS - ADULT Constitutional: denies: chills, fever, fatique Eyes: reports: no symptoms reported Ears, Nose, Mouth & Throat: reports: no symptoms reported Cardiovascular: denies: chest pain, irregular heart rate, orthopnea, syncope Respiratory: reports: no symptoms reported Gastrointestinal: denies: abdominal pain, nausea, vomiting Genitourinary: reports: no symptoms reported Musculoskeletal: reports: no symptoms reported Integumentary: denies: nail changes, skin thickening Neurological: reports: see HPI, slurred speech, other (AMS). denies: dizziness/ vertigo, headache/migraines, loss of balance, numbness, paresthesia, seizure, syncope, tremors Psychiatric: reports: no symptoms reported Endocrine: reports: no symptoms reported Hematologic/Lymphatic: reports: no symptoms reported Allergic/Immunologic: reports: no symptoms reported All Other Systems: Reviewed and Negative Past History - Adult - PAST MEDICAL HISTORY-ADULT Review of Records: reports: Nursing Assessment Review, Medications Reviewed Major Childhood Illnesses: reports: denies history Cardiovascular: reports: A-Fib, blood clots, HTN Respiratory: reports: COPD Gastrointestinal: reports: GI bleed Obstetrical/Gynecological: reports: denies history Genitourinary: reports: denies history Musculoskeletal: reports: arthritis, chronic pain, fibromyalgia, neck/back injury Neurological: reports: denies history Endocrine/Immune: reports: Diabetes Other Conditions: reports: denies history - PRIOR SURGERIES/PROCEDURES Surgical/Procedure History: reports: appendectomy, cardiac stent, hysterectomy, back/neck - IMMUNIZATION STATUS Childhood Immunizations: See Nurse Assessment Flu Vaccine: See Nurse Assessment - FAMILY HISTORY Family History: reviewed, not pertinent - SOCIAL HISTORY Smoking: non-smoker Substance Use: none/never Physical Exam- Neurological - Physical Exam-Neuro Initial Vital Signs Reviewed: Yes General Appearance: appears well, alert, slow to respond. 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 negative: normal speech, facial asymmetry, facial droop, facial paresthesias, facial weakness, hearing deficit (R), hearing deficit (L), tongue deviation to R, tongue deviation to L Coordination/Gait: negative: normal finger to nose Motor/Sensory: no motor deficit, no sensory deficit, no pronator drift Neurologic: grossly normal. negative: facial droop, focal weakness, motor weakness, sensory deficit Integumentary: normal color, normal turgor, warm/dry Psych/Mental Status: negative: oriented x 3 (oriented to person) - Glascow Coma Scale Best Eye Response: (4) open spontaneously Best Verbal Response: (4) confused conversation Best Motor Response: (6) obeys commands Total Glascow Score: 14 Progress - PLAN OF CARE/RESULTS Progress/Plan/Lab Results: Vital Signs - 8 hr 06/24/18 12:19 06/24/18 13:13 Temperature 99.1 F Pulse Rate 88 86 Respiratory Rate 22 24 Blood Pressure 153/71 138/74 O2 Sat by Pulse Oximetry 97 100 Laboratory Results - last 24 hr 06/24/18 06/24/18 06/24/18 12:22 12:22 12:22 WBC 8.40 RBC 3.13 L Hgb 8.3 L Hct 27.3 L MCV 87.2 MCH 26.5 L MCHC 30.4 L RDW Std Deviation 14.6 H Plt Count 296 MPV 9.0 Immature Gran % (Auto) 0.2 Neut % (Auto) 81.5 H Lymph % (Auto) 11.5 L [place] % (Auto) 6.3 Eos % (Auto) 0.4 Baso % (Auto) 0.1 Immature Gran # (Auto) 0.02 Neut # (Auto) 6.84 H Lymph # (Auto) 0.97 L [place] # (Auto) 0.53 Eos # (Auto) 0.03 Baso # (Auto) 0.01 Sodium 138 Potassium 3.7 Chloride 103 Carbon Dioxide 23 L Anion Gap 12 BUN 14 Creatinine 0.6 Estimated GFR/1.73 m2 > 60 BUN/Creatinine Ratio 23 Glucose 101 Calculated Osmolality 276 Calcium 8.3 L Troponin T < 0.010 Urine Source Urine Color Urine Clarity Urine pH Ur Specific Post Urine Protein Urine Ketones Urine Blood Urine Nitrite Urine Bilirubin Urine Urobilinogen Urine Microscopic RBC Urine WBC Urine Microscopic WBC Ur Epithelial Cells Urine Glucose Urine Opiates Screen Ur Oxycodone Screen Urine Methadone Screen U Propoxyphene Qual Ur Barbituates Screen Ur Tricyclics Screen Ur Phencyclidine Scrn Ur Amphetamines Screen U Methamphetamines Scrn U Benzodiazepines Scrn Urine Cocaine Screen U Cannabinoids Screen 06/24/18 06/24/18 12:30 12:30 WBC RBC Hgb Hct MCV MCH MCHC RDW Std Deviation Plt Count MPV Immature Gran % (Auto) Neut % (Auto) Lymph % (Auto) [place] % (Auto) Eos % (Auto) Baso % (Auto) Immature Gran # (Auto) Neut # (Auto) Lymph # (Auto) [place] # (Auto) Eos # (Auto) Baso # (Auto) Sodium Potassium Chloride Carbon Dioxide Anion Gap BUN Creatinine Estimated GFR/1.73 m2 BUN/Creatinine Ratio Glucose Calculated Osmolality Calcium Troponin T Urine Source CATH Urine Color YELLOW Urine Clarity CLEAR Urine pH 7.0 Ur Specific Post 1.010 Urine Protein TRACE A Urine Ketones NEGATIVE Urine Blood NEGATIVE Urine Nitrite NEGATIVE Urine Bilirubin NEGATIVE Urine Urobilinogen NORMAL Urine Microscopic RBC Not Reportable Urine WBC NEGATIVE Urine Microscopic WBC <10 Ur Epithelial Cells >10 A Urine Glucose NEGATIVE Urine Opiates Screen PRESUMPTIVE POSITIVE A Ur Oxycodone Screen NONE DETECTED Urine Methadone Screen NONE DETECTED U Propoxyphene Qual NONE DETECTED Ur Barbituates Screen NONE DETECTED Ur Tricyclics Screen PRESUMPTIVE POSITIVE A Ur Phencyclidine Scrn NONE DETECTED Ur Amphetamines Screen NONE DETECTED U Methamphetamines Scrn NONE DETECTED U Benzodiazepines Scrn NONE DETECTED Urine Cocaine Screen NONE DETECTED U Cannabinoids Screen NONE DETECTED Orders Category Date Time Status Straight Catheterization ORDERED Care 06/24/18 11:51 Active CHEST-1 VIEW [RAD] Stat Exams 06/24/18 11:[address] HEAD W/O CONTRAST [CT] Stat Exams 06/24/18 11:47 Completed BMP [BASIC METABOLIC PANEL] [CHEM] Stat Lab 06/24/18 12:22 Completed CBC WITH ELECTRONIC DIFF [HEME] Stat Lab 06/24/18 12:22 Completed TROPONIN T Stat Lab 06/24/18 12:[address] W/POSS RFLX CULT [URINALYSIS] Stat Lab 06/24/18 12:30 Completed URINE DRUG SCREEN PL Stat Lab 06/24/18 12:30 Completed Aspirin Med 06/24/18 13:41 Once 300 mg MO NOW ONE Transfer/Admit Order [TRANSFER] Routine Transfer 06/24/18 13:39 Ordered Result Diagrams: 06/24/18 12:22 06/24/18 12:22 - EKG 1 Time of EKG reading by physician:: 12:35 EKG Read and Signed by:: Dae Hernandez EKG Interpretation (*Must complete 3 of following elements*): Abnormal (mild prolonged QT) Rate: 87 Rhythm: nsr [place]: normal MO Interval: normal ST Wave: non-specific ST changes - XRAY 1 XRAY: Bilateral XRAY Study: Chest Impression: Normal (IMPRESSION: Negative exam. Electronically signed by Samson Lee 06/24/2018 12:46 PM 06/24/18 1246 Interpreting Physician: Samson Lee MD Dictated Date/Time: 06/24/18 1246) - CT/MRI 1 CT Study: Head Impression: Normal, See EMR Report (IMPRESSION: 1.No hemorrhage 2.Chronic microvascular ischemic changes. An MRI is recommended if there is clinical concern for an acute infarct. This exam was performed using automated exposure control, adjustment of mA or kV according to patient size, and/or use of iterative reconstruction technique. Electronically signed by Samson Lee 06/24/2018 12:48 PM) - CONSULTS/PCP/HOSPITALIST Notification #1 *Consult/PCP/Hospitalist*: Dr. Austin Time Discussed: 13:38 Consult Disposition: Admit Departure - Departure Date of Disposition Decision: 06/24/18 Time of Disposition Decision: 13:38 DIAGNOSIS: Altered mental status, TIA (transient ischemic attack) Disposition: ADMITTED INPATIENT 09 Certified Medical Emergency: Emergent Condition: Stable Referrals and Follow-Ups: Jagdish Austin MD [Primary Care Provider] - - Critical Care Note This patient required my direct & personal management of CC.: No Attestation - Physician/ JOAQUIN Attestation Patient care was provided by Advanced Practice Provider:: No The physician spent face to face time with patient:: Yes Advanced Practice Provider documentation review:: Supervising physician onsite and consulted in the evaluation and care of this patient. The physician did have a face to face encounter with the patient. - NIH Stroke Scale NIH Type: Initial Evaluation Level of Consciousness: 2-Stuporous, requires repeat stimulation to attend LOC Questions (ask month and age): 2-Both Incorrect LOC Commands (ask to open & close eyes;make a fist, let go): 2-Both Incorrect Best Gaze (horizontal eye movement): 0-Normal Visual (use finger movement, counting or visual threat): 0-No Visual Loss Facial Palsy (show teeth or raise eyebrows & close eyes tght: 0-Symmetrical Movement Motor Function-left arm: 0-Normal Motor Function-right arm: 0-Normal Motor Function-left le-Normal Motor Function-right le-Normal Limb Ataxia([id number]-[id number], or heel to gamboa): 0-No Ataxia Sensory(pin prick to face,arms,trunk,legs-compare side/side): 0-No Ataxia Best Language(name item/read sentence.Ex-Down to Earth): 1-Mild to Moderate Aphasia Dysarthria(Pt read words or say words Ex.Mama,Tip-Top,Thanks: 2-Near Unintelligible Extinction and Inattention: 1-Partial Neglect NIH Total Score: 9 Modified Kinsey Score Criteria: 2-slight disability (SYMPTOMS MUCH IMPROVED BY [id number]) This chart was documented by the indicated scribe, (Shala Hernandez Scribe) and accurately reflects the services I performed and decisions made by me, Dae Hernandez MD, as attested by the provider's signature.
--- NOTE | 2018-06-24 16:33 | Diag Imaging Result Doc PS360 ---
EXAM: MRI BRAIN W/O CONTRAST - 06/24/2018 HISTORY: tia TECHNIQUE: MRI brain without contrast COMPARISON: 06/20/2018 FINDINGS: There are artifacts from motion which limit detail. There are chronic microvascular ischemic changes similar to prior. 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 The diffusion weighted images are degraded by motion artifacts but show no discrete areas of restricted diffusion (no evidence of acute infarct). There is no hemorrhage, mass effect, or midline shift identified. IMPRESSION: Limited exam due to artifacts from motion. Chronic ischemic changes similar to prior. No visible acute abnormality. Electronically signed by Dustin Woodson 06/24/2018 4:31 PM
[2018-06-24] MEDS: TYLENOL PR PRN (16:45)
[2018-06-24] MEDS ORDERED: ZOFRAN IV PRN (17:26)
[2018-06-24] MEDS: ZOSYN 3.375 GM in NS 50 ML IV SCH (18:05)
[2018-06-25] MEDS: TYLENOL PO PRN ×4 (00:09→21:55)
[2018-06-25] MEDS: ZOSYN 3.375 GM in NS 50 ML IV SCH ×5 (00:09→23:30)
[2018-06-25 00:22] LABS: INFLUENZA A NEGATIVE (NEGATIVE); INFLUENZA B NEGATIVE (NEGATIVE)
[2018-06-25] MEDS: TYLENOL PR PRN (02:27)
[2018-06-25 06:57] LABS: HEMATOCRIT 23.9 % (37.0-47.0); HEMOGLOBIN 7.3 g/dL (12.0-16.0); MCH 26.7 PG (27-31); MCHC 30.5 g/dL (33-37); MCV 87.5 FL (81-99); MPV 9.5 FL (7.4-10.4); RBC 2.73 XMIL (4.2-5.4); RDW 14.2 % (11.5-14.5); WBC 7.7 X1000 (4.8-10.8)
[2018-06-25 07:00] LABS: AGAP 14; ALBUMIN 2.9 g/dL (3.5-5.0); ALKALINE PHOSPHATASE 69 U/L (32-104); BUN 18 mg/dL (8-22); CALCIUM 7.9 mg/dL (8.8-10.2); CHLORIDE 107 mmol/L (98-107); COSMO 283; CREATININE 0.8 mg/dL (0.5-0.9); ESTIMATED GFR > 60; GLUCOSE 102 mg/dL (70-104); GOT 14 U/L (10-30); GPT 7 U/L (10-36); MAGNESIUM 1.5 mg/dL (1.5-2.7); SODIUM 141 mmol/L (136-145); TCO2 21 mmol/L (25-35)
[2018-06-25] MEDS ORDERED: KLOR-CON PO ONE (08:14)
[2018-06-25] MEDS ORDERED: VANCOMYCIN IV PER PHARMACY MISC SCH (08:15)
[2018-06-25] MEDS ORDERED: ELIQUIS PO SCH (09:00)
[2018-06-25] MEDS ORDERED: VANCOMYCIN 2,000 MG in NS 500 ML IV ONE (10:00)
--- NOTE | 2018-06-25 10:21 | EKG Report ---
Test Performed on : 06/24/2018 12:35:12 PM Test Reason : cp Blood Pressure : / mmHG Vent. Rate : 087 BPM Atrial Rate : 087 BPM P-R Int : 154 ms QRS Dur : 108 ms QT Int : 400 ms P-R-T Axes : 000 028 112 degrees QTc Int : 481 ms Normal sinus rhythm. Nonspecific ST and T wave abnormality Prolonged QT Abnormal ECG When compared with ECG of 20-JUN-2018 11:11, (Unconfirmed) No significant change was found Unconfirmed Result
[2018-06-25] MEDS: PLAVIX PO SCH ×2 (10:32→21:55)
[2018-06-25] MEDS: PLETAL PO SCH ×2 (10:32→21:55)
[2018-06-25] MEDS: LASIX PO SCH (10:33)
[2018-06-25] MEDS: GLUCOPHAGE PO SCH ×2 (10:33→17:58)
[2018-06-25] MEDS: BETAPACE PO SCH ×2 (10:33→21:55)
[2018-06-25 16:56] LABS: OCCULT BLOOD 1 POSITIVE (NEGATIVE)
[2018-06-25] MEDS ORDERED: LASIX IV SCH (18:00)
[2018-06-25 19:42] LABS: HEMATOCRIT 23.6 % (37.0-47.0); HEMOGLOBIN 7.3 g/dL (12.0-16.0); MCH 26.9 PG (27-31); MCHC 30.9 g/dL (33-37); MCV 87.1 FL (81-99); MPV 9.6 FL (7.4-10.4); RBC 2.71 XMIL (4.2-5.4); RDW 14.4 % (11.5-14.5)
[2018-06-25] MEDS: ELAVIL PO SCH (21:55)
[2018-06-25] MEDS: NORCO-10 PO PRN (22:01)
--- NOTE | 2018-06-25 22:56 | PROGRESS NOTE ---
DATE: 06/25/2018 SUBJECTIVE: The patient is awake and alert this morning. She does respond to me walking in the room. She seems to recognize me, as well as her daughter. PHYSICAL EXAMINATION: Vital Signs: T-max 102 degrees, pulse 90s, respiratory rate 80s, BP stable. General: The patient is awake. She is much more alert today than she was on admission. HEENT: Normocephalic. Neck: Supple. Cardiovascular: Regular rate. Chest : Clear and unlabored. No crackles, no wheezing. Abdomen: Soft, nondistended. Extremities: Moves all extremities. Neurologic: No focal changes. ASSESSMENT: 1. Sepsis, with Gram negative rods. 2. Gram negative j luis bacteremia. 3. Intermittent atrial fibrillation. 4. Recent right lower extremity deep venous thrombosis. 5. Hypokalemia. 6. Metabolic encephalopathy, secondary to Gram negative j luis bacteremia. 7. Anemia. Patient's hemoglobin and hematocrit has gradually declined since starting Eliquis. 8. Heme-positive stool, likely upper gastrointestinal bleed. PLAN: We will type, cross, transfuse, give her 2 units of blood. Currently, she is stable, and is not having any occult blood, although she was heme-positive. Her hemoglobin and hematocrit has gradually drifted down over the past month. We will stop her Eliquis, even though she has recently had a deep venous thrombosis. She does appear to be having bleeding, and therefore cannot stay on. We will continue antibiotics until culture and sensitivity have returned. Discussed this in great detail with the daughter. TIME SPENT: 40 minutes was spent in total care today. cc: Jagdish Austin MD [facility] [place] [facility]
[2018-06-25] MEDS ORDERED: NS 1,000 ML ONE (23:25)
[2018-06-26] MEDS: ZOSYN 3.375 GM in NS 50 ML IV SCH ×3 (06:08→18:54)
[2018-06-26] MEDS: BETAPACE PO SCH ×2 (08:05→22:11)
[2018-06-26] MEDS: PLAVIX PO SCH ×2 (08:05→22:12)
[2018-06-26] MEDS: GLUCOPHAGE PO SCH ×2 (08:05→18:43)
[2018-06-26] MEDS: PLETAL PO SCH ×2 (08:05→22:11)
[2018-06-26] MEDS: LASIX PO SCH (08:05)
[2018-06-26 08:12] LABS: AGAP 15; ALBUMIN 2.8 g/dL (3.5-5.0); ALKALINE PHOSPHATASE 77 U/L (32-104); BUN 21 mg/dL (8-22); CALCIUM 7.9 mg/dL (8.8-10.2); CHLORIDE 106 mmol/L (98-107); COSMO 283; CREATININE 0.9 mg/dL (0.5-0.9); ESTIMATED GFR > 60; GLUCOSE 109 mg/dL (70-104); GOT 17 U/L (10-30); GPT 9 U/L (10-36); MAGNESIUM 1.6 mg/dL (1.5-2.7); POTASSIUM 3.3 mmol/L (3.5-5.1); SODIUM 140 mmol/L (136-145); TCO2 20 mmol/L (25-35); TOTAL PROTEIN 6.3 g/dL (6.3-8.3)
[2018-06-26 08:14] LABS: HEMATOCRIT 30.6 % (37.0-47.0); HEMOGLOBIN 9.6 g/dL (12.0-16.0); MCHC 31.4 g/dL (33-37); MCV 86.2 FL (81-99); MPV 9.8 FL (7.4-10.4); RBC 3.55 XMIL (4.2-5.4); RDW 14.6 % (11.5-14.5); WBC 8.37 X1000 (4.8-10.8)
[2018-06-26] MEDS: NORCO-10 PO PRN (08:19)
[2018-06-26] MEDS ORDERED: KLOR-CON PO ONE (08:24)
[2018-06-26] MEDS ORDERED: VANCOMYCIN 1,500 MG in NS 250 ML IV SCH (10:00)
[2018-06-26] MEDS: PROTONIX 80 MG in NS 80 ML IV SCH (13:15)
[2018-06-26] MEDS: TYLENOL PO PRN (18:43)
[2018-06-26] MEDS: ELAVIL PO SCH (22:11)
[2018-06-27] MEDS: PROTONIX 80 MG in NS 80 ML IV SCH ×3 (00:11→20:46)
[2018-06-27] MEDS: ZOSYN 3.375 GM in NS 50 ML IV SCH ×5 (00:11→23:32)
[2018-06-27] MEDS: NORCO-10 PO PRN ×2 (06:16→18:03)
[2018-06-27 06:38] LABS: HEMATOCRIT 26.2 % (37.0-47.0); HEMOGLOBIN 8.4 g/dL (12.0-16.0); MCH 27.2 PG (27-31); MCHC 32.1 g/dL (33-37); MCV 84.8 FL (81-99); MPV 10.1 FL (7.4-10.4); RBC 3.09 XMIL (4.2-5.4); RDW 14.6 % (11.5-14.5); WBC 8.07 X1000 (4.8-10.8)
[2018-06-27 07:02] LABS: AGAP 12; ALBUMIN 2.4 g/dL (3.5-5.0); ALKALINE PHOSPHATASE 65 U/L (32-104); BUN 18 mg/dL (8-22); CALCIUM 7.7 mg/dL (8.8-10.2); CHLORIDE 106 mmol/L (98-107); COSMO 280; CREATININE 0.6 mg/dL (0.5-0.9); ESTIMATED GFR > 60; GLUCOSE 106 mg/dL (70-104); GOT 11 U/L (10-30); GPT 6 U/L (10-36); POTASSIUM 3.5 mmol/L (3.5-5.1); SODIUM 139 mmol/L (136-145); TCO2 20 mmol/L (25-35); TOTAL PROTEIN 5.9 g/dL (6.3-8.3)
--- NOTE | 2018-06-27 08:21 | PROGRESS NOTE ---
DATE: 06/26/2018 SUBJECTIVE: The patient was seen and examined on the morning of the . The patient herself is a little bit more awake and alert this morning. The family notes that she is still not back to her usual self, although she is having periods of time where she is more awake and alert. She is still having episodes of confusion and disorientation. PHYSICAL EXAMINATION: Vital Signs: Reviewed and stable. General: The patient is awake and alert. She is still somewhat confused, although does recognize me and her daughter. HEENT: Normocephalic. Neck: Supple. Cardiovascular: Regular rate. Chest: Positive rhonchi. No crackles, no wheezing. Abdomen: Soft and nondistended. Extremities: Moves all extremities. Neurologic: No focal changes. ASSESSMENT: 1. Sepsis,, appears resolved. 2. Gram-negative j luis bacteremia causing sepsis. 3. Hypokalemia. We will replace. 4. Metabolic encephalopathy secondary to gram-negative j luis bacteremia. 5. Intermittent atrial fibrillation. 6. Heme-positive stool. The patient received 2 units of blood in transfusion yesterday. Her hemoglobin and hematocrit are stable at 9 today. We will continue to follow. At this point, the patient is stable. After discussion with the family, they agreed to hold on esophagogastroduodenoscopy and colonoscopy as they are afraid that this will make her mental status worse, in addition to the fact that she is still bacteremic. Unfortunately, we will have to hold her Eliquis. She does have a history of intermittent atrial fibrillation as well as a recent deep venous thrombosis. Hopefully, this can be started back soon. 7. Right lower extremity deep venous thrombosis. As noted, we will hold her Coumadin. cc: Jagdish Austin MD
--- NOTE | 2018-06-27 08:36 | HISTORY AND PHYSICAL ---
CHIEF COMPLAINT: Confusion. HISTORY OF PRESENT ILLNESS: The patient is a 78-year-old female, who has had a difficult medical history the past few months. She has been intermittently in atrial fibrillation with RVR, has been in the hospital twice over the past 2 months secondary to heart rates in the 150s to 180s. She received cardioversion twice; the first time worked only for a few days and the second time has been much improved as she has been on sotalol since then. In addition, she has also had a right lower extremity DVT diagnosed approximately 6 weeks ago and has been on Eliquis for her DVT and atrial fibrillation. The family notes that last week, she had an episode of confusion. She was brought to the ER, was cleared as far as the stroke was concerned, and was discharged home as she was awake, alert and oriented. Again today, she presents with confusion, disorientation. She was unsure how to get out of a chair, was confused, did not know family. SOCIAL HISTORY: Patient is . She has an extensive smoking history of up to 2 packs a day until approximately 3 weeks ago, at which time the family notes that she had stopped. She lives at home in [place]. ALLERGIES: No known drug allergies. MEDICATIONS: Elavil 100 mg daily, Plavix 75 daily, Glucophage 500 twice daily, Eliquis 5 twice daily, hydrocodone, Lasix 40 and sotalol 80 twice daily. PAST MEDICAL HISTORY: DVT recently diagnosed a few weeks ago, atrial fibrillation with intermittent rapid ventricular rate also recently diagnosed a few weeks ago. Chronic tobacco abuse. FAMILY HISTORY: Positive for COPD and hypertension. REVIEW OF SYSTEMS: Unobtainable from Ms. Hayes due to her acute confusion, although the family notes that prior to this morning she was in her usual state of health. Denied any chest pains, although she has not really had chest pains or palpitations with her atrial fibrillation despite being in the 150 to 160 rate. They deny any recent fevers or chills. Denies any recent headaches or focalized weakness. Denied any knowledge of urinary complaints or GI complaints. However, this morning as noted, she has been confused and unable to answer questions. PHYSICAL EXAMINATION: VITAL SIGNS: Reviewed. She is currently afebrile. Heart rate is rate controlled in the 80s, respiratory 20, BP 138/74, satting 97% to 100% on room air. GENERAL: Patient is awake, alert. She is confused, disoriented, but calm. HEENT: Normocephalic. NECK: Supple. CV: Regular rate. No murmurs. CHEST: Clear, nonlabored. No crackles, no wheezing. ABDOMEN: Soft, nondistended. EXTREMITIES: She is noted to move all extremities. NEUROLOGIC: There are no focal changes. LABS: Reviewed. ASSESSMENT: 1. Acute metabolic encephalopathy. 2. Presumed urinary tract infection. 3. Fever. 4. Atrial fibrillation currently rate controlled on sotalol and Eliquis. 5. Known hypertension, blood pressure controlled. 6. Recent right lower extremity deep vein thrombosis, currently on Eliquis. 7. History of chronic pain and fibromyalgia. 8. Chronic tobacco abuse. 9. History of diabetes. 10. Known coronary artery disease status post cardiac stenting in the past. 11. History of hysterectomy. 12. Remote history of gastrointestinal bleed. PLAN: Will admit patient to the hospital. CT and MRI do not show any acute stroke, although they do show chronic microvascular changes. Discussed with the family that she has just recently had a fever, and this is most likely the cause of her altered mental status due to infection and not actually due to stroke. Discussed that strokes do not typically causes fever, and she has no other physical symptoms. We will admit her to the hospital, place her on antibiotics. Continue her home medications. We will follow her hemoglobin and hematocrit that is slightly lower than a few weeks ago. We will recheck. Further orders as needed. cc: Jagdish Austin MD
[2018-06-27] MEDS ORDERED: RELISTOR SUBQ ONE (09:26)
[2018-06-27] MEDS: PLETAL PO SCH ×2 (09:41→22:44)
[2018-06-27] MEDS: GLUCOPHAGE PO SCH ×2 (09:41→17:19)
[2018-06-27] MEDS: BETAPACE PO SCH ×2 (09:41→22:23)
[2018-06-27] MEDS: PLAVIX PO SCH ×2 (09:41→22:44)
[2018-06-27] MEDS: LASIX PO SCH (09:41)
[2018-06-27] MEDS: TYLENOL PO PRN (18:03)
[2018-06-27] MEDS: ELAVIL PO SCH (22:44)
[2018-06-27 23:31] LABS: BASO# 0.02 X1000 (0.0-0.2); BASO% 0.3 % (0.0-0.8); EOS% 1.4 % (0.0-10.0); HEMATOCRIT 26.5 % (37.0-47.0); HEMOGLOBIN 8.4 g/dL (12.0-16.0); IMM GRAN# 0.06 X1000 (0.0-0.04); IMM GRAN% 0.8 % (0.0-0.5); LYMPH# 2.41 X1000 (1.2-3.4); LYMPH% 33.6 % (20.5-51.1); MCH 27.1 PG (27-31); MCHC 31.7 g/dL (33-37); MCV 85.5 FL (81-99); MONO# 0.44 X1000 (0.11-0.59); MONO% 6.1 % (1.7-9.3); MPV 9.5 FL (7.4-10.4); NEUT# 4.15 X1000 (1.4-6.5); NEUT% 57.8 % (42.2-75.2); PLT 175 X1000 (130-400); RDW 14.7 % (11.5-14.5); WBC 7.18 X1000 (4.8-10.8)
--- NOTE | 2018-06-28 04:27 | PROGRESS NOTE ---
DATE: 06/27/2018 SUBJECTIVE: Patient states she is feeling okay this morning. Her daughter notes that she is a little bit more awake and alert. Yesterday, she still had periods of time, which she was confused and disoriented. The patient denies any chest pain. Denies any palpitations. OBJECTIVE: Vital Signs: Reviewed. She is currently afebrile. Heart rate in the 80s, respiratory rate 20. General: She is awake and alert. Neck: Supple. CV: Rate controlled, no murmurs. Chest: No wheezing, no crackles, nonlabored. Abdomen: Soft, nondistended, and nontender. Extremities: Moves all extremities. She has no edema. Neurologic: No focal neurological changes. Currently, patient appears awake, alert, and oriented. ASSESSMENT: 1. Sepsis secondary to Escherichia coli. 2. Presumed urinary tract infection, although, culture does not appear to have been done for her urine. 3. Hypokalemia. Will continue to replace. 4. Metabolic encephalopathy secondary to Escherichia coli bacteremia. 5. Escherichia coli bacteremia. 6. Heme-positive stools with anemia. Her hemoglobin and hematocrit has been stable after 2 units of transfusion. 7. Anemia, stable. 8. Right lower extremity deep venous thrombosis. 9. Atrial fibrillation, currently rate controlled on sotalol. PLAN: Patient will need transfer to [facility] for GI evaluation after she is stable. Currently, we will need to continue to hold her Eliquis. Her hemoglobin and hematocrit has dropped slightly from 9 to 8.5. Hopefully, this is only lab error, and she is not continuing to bleed. We will recheck her hemoglobin and hematocrit in the a.m. Certainly, if she has any further anemia or bleeding, then she will need more urgent endoscopy. We will continue her on clear liquids, as it is likely from an upper GI source. We will continue Protonix. Continue to hold her Eliquis. Despite the fact that she has recently had her DVT, she currently has a GI bleed that has created anemia, and we will follow. The family is aware and agrees with the plan. cc: Jagdish Austin MD
[2018-06-28] MEDS ORDERED: NS 500 ML ONE (05:45)
[2018-06-28] MEDS: ZOSYN 3.375 GM in NS 50 ML IV SCH ×2 (05:49→11:57)
[2018-06-28 06:05] LABS: HEMOGLOBIN 8.5 g/dL (12.0-16.0); MCH 26.9 PG (27-31); MCHC 31.5 g/dL (33-37); MCV 85.4 FL (81-99); MPV 10.3 FL (7.4-10.4); RBC 3.16 XMIL (4.2-5.4); RDW 14.8 % (11.5-14.5); WBC 6.96 X1000 (4.8-10.8)
[2018-06-28 06:14] LABS: HEMOGLOBIN A1C 5.3 % (4.8-6.0)
[2018-06-28 06:36] LABS: AGAP 13; ALBUMIN 2.5 g/dL (3.5-5.0); ALKALINE PHOSPHATASE 62 U/L (32-104); BUN 18 mg/dL (8-22); CALCIUM 7.7 mg/dL (8.8-10.2); CHLORIDE 105 mmol/L (98-107); COSMO 281; CREATININE 0.6 mg/dL (0.5-0.9); ESTIMATED GFR > 60; GLUCOSE 93 mg/dL (70-104); GOT 9 U/L (10-30); GPT 8 U/L (10-36); MAGNESIUM 1.7 mg/dL (1.5-2.7); SODIUM 140 mmol/L (136-145); TCO2 23 mmol/L (25-35); TOTAL PROTEIN 5.3 g/dL (6.3-8.3)
[2018-06-28] MEDS: PLETAL PO SCH ×2 (08:49→20:59)
[2018-06-28] MEDS: NORCO-10 PO PRN ×3 (08:49→20:58)
[2018-06-28] MEDS: GLUCOPHAGE PO SCH ×2 (08:49→16:58)
[2018-06-28] MEDS: PLAVIX PO SCH ×2 (08:49→20:59)
[2018-06-28] MEDS: BETAPACE PO SCH ×2 (08:49→20:59)
[2018-06-28] MEDS: LASIX PO SCH (08:49)
[2018-06-28] MEDS: PROTONIX 80 MG in NS 80 ML IV SCH ×3 (09:32→21:02)
[2018-06-28] MEDS ORDERED: KLOR-CON PO ONE (12:27)
[2018-06-28] MEDS: LEVAQUIN 750 MG/D5W 750 MG/150 ML IVPB IV SCH (13:06)
[2018-06-28] MEDS: MIRALAX PO SCH (13:06)
--- NOTE | 2018-06-28 14:10 | PROGRESS NOTE ---
DATE: 06/28/2018 SUBJECTIVE: The patient seems to be stable, received 2 units of PRBCs a few days ago because her hemoglobin was 7.38 but then for the last 24 hours has been stable around 8.4, 8.5. The anticoagulation has been stopped but she continues with Cilostazol and Plavix. Apparently recently she was placed back on those medications. She was recently cardioverted from atrial fibrillation on 06/05/2018. Since the hemoglobin and hematocrit has been stable, probably I will continue with the medications, but if there is a decrease of the hemoglobin, probably we need to stop it. I will check the hemoglobin and hematocrit every 8 hours. I had a conversation with the daughter and she wants to take this patient home with hospice but if the hemoglobin drops, she wants to go ahead and transfuse this patient and get an endoscopy done. If in 2 or 3 days this patient is stable and the hemoglobin is okay or about the same compared with the previous ones, she can go home with [facility]. On the other hand, I had a conversation with Dr. Farfan by phone. This patient is bacteremic. blood culture showed E. coli which is sensitive to Zosyn and also sensitive to levofloxacin. I have stopped the Zosyn and I have placed this patient on levofloxacin so she can be discharged home on levofloxacin p.o. Dr. Farfan recommended to treat it for 6 weeks because she has some material placed on her right hip due to previous surgery and he wants to follow her up in his office in 3 weeks. OBJECTIVE: Vital Signs: Temperature 97.9 degrees, pulse 76, respiratory rate 20, blood pressure 108/52, oxygen saturation 98 on room air. HEENT: Head normocephalic. No trauma. PERRLA. Neck: Supple. No JVD. No masses. Central trachea. Chest: Clear to auscultation. No wheezing. No rales. Abdomen: Soft, nontender, nondistended. No hepatosplenomegaly. Extremities: No edema. No clubbing. No cyanosis. Neurological: The patient is alert and oriented x3. No focal deficits. LABORATORY: WBC 6.9, hemoglobin 8.5, hematocrit 27, platelets 189,000, sodium 140, potassium 3, chloride 105, bicarbonate 23, BUN 18, creatinine 0.6, glucose 93, calcium 7.7. AST 9, ALT 8, alkaline phosphatase 62, albumin 2.5. ASSESSMENT AND PLAN: 1. Sepsis secondary to Escherichia coli. She seems to be doing good. Continue with antibiotics. I have stopped the Zosyn. I have placed this patient on levofloxacin so she can go home with p.o. medication. I had a conversation by phone with Dr. Farfan who has recommended to continue levofloxacin to complete 6 weeks of treatment and also he wants to follow her up in 3 weeks. 2. Urinary tract infection. Consult for possible urinary tract infection. Continue with same management. 3. Hypokalemia, I will replace it today. 4. Metabolic encephalopathy secondary to Escherichia coli bacteremia. At this moment this patient is completely alert. She is following commands and oriented. 5. Escherichia coli bacteremia. As per #1. 6. Heme positive stools with anemia. She has been transfused with 2 units of PRBCs, hemoglobin has been stable afterwards. We will monitor the hemoglobin every 8 hours. If in 2 or 3 days, the hemoglobin is stable probably this patient can go home. The family had decided to go ahead and ask for hospice so she can go home with [facility]. 7. Right lower extremity DVT, unfortunately the Eliquis has been stopped due to recent GI bleed. 8. Atrial fibrillation, currently rate controlled on sotalol. cc: MD Jagdish Mcdonald MD
[2018-06-28 14:11] LABS: HEMATOCRIT 28.6 % (37.0-47.0); HEMOGLOBIN 9.2 g/dL (12.0-16.0)
[2018-06-28] MEDS: ELAVIL PO SCH (20:59)
[2018-06-28 21:46] LABS: HEMATOCRIT 26.5 % (37.0-47.0); HEMOGLOBIN 8.5 g/dL (12.0-16.0)
[2018-06-29] MEDS ORDERED: CALMOSEPTINE OINTMENT TOP PRN (06:45)
[2018-06-29] MEDS: PROTONIX 80 MG in NS 80 ML IV SCH (07:02)
[2018-06-29 08:05] LABS: BASO# 0.02 X1000 (0.0-0.2); BASO% 0.3 % (0.0-0.8); EOS# 0.11 X1000 (0.0-0.7); EOS% 1.6 % (0.0-10.0); HEMATOCRIT 26.8 % (37.0-47.0); HEMOGLOBIN 8.4 g/dL (12.0-16.0); IMM GRAN# 0.13 X1000 (0.0-0.04); IMM GRAN% 1.9 % (0.0-0.5); LYMPH# 2.68 X1000 (1.2-3.4); LYMPH% 38.3 % (20.5-51.1); MCH 26.9 PG (27-31); MCHC 31.3 g/dL (33-37); MCV 85.9 FL (81-99); MONO# 0.83 X1000 (0.11-0.59); MONO% 11.9 % (1.7-9.3); MPV 10.4 FL (7.4-10.4); NEUT# 3.22 X1000 (1.4-6.5); PLT 202 X1000 (130-400); RBC 3.12 XMIL (4.2-5.4); RDW 14.4 % (11.5-14.5); WBC 6.99 X1000 (4.8-10.8)
[2018-06-29 08:09] LABS: AGAP 11; BUN 14 mg/dL (8-22); CALCIUM 7.7 mg/dL (8.8-10.2); CHLORIDE 105 mmol/L (98-107); COSMO 278; CREATININE 0.6 mg/dL (0.5-0.9); ESTIMATED GFR > 60; GLUCOSE 100 mg/dL (70-104); POTASSIUM 3.4 mmol/L (3.5-5.1); SODIUM 139 mmol/L (136-145); TCO2 24 mmol/L (25-35)
[2018-06-29] MEDS: BETAPACE PO SCH ×2 (08:22→21:49)
[2018-06-29] MEDS: GLUCOPHAGE PO SCH ×2 (08:22→17:47)
[2018-06-29] MEDS: LASIX PO SCH (08:22)
[2018-06-29] MEDS: PLAVIX PO SCH ×2 (08:22→21:49)
[2018-06-29] MEDS: PLETAL PO SCH ×2 (08:22→21:48)
[2018-06-29] MEDS: MIRALAX PO SCH (08:23)
[2018-06-29] MEDS ORDERED: KLOR-CON PO ONE (09:18)
--- NOTE | 2018-06-29 10:39 | PROGRESS NOTE ---
DATE: 06/29/2018 SUBJECTIVE: The patient denies having any acute complaints this morning. She still has some weakness however. OBJECTIVE: Vital Signs: Temperature is 97.7 degrees, pulse 79 per minute, respiratory rate 18 per minute, blood pressure 122/52, and pulse ox 99% on room air. General: The patient is alert and oriented times 3. She does not appear to be in any acute distress. She does appear to be having generalized weakness however. Cardiovascular System: First and second heart sounds are audible without any murmurs or gallops. Respiratory System: No respiratory distress noted. Bilateral lung air entry is moderately decreased but there are no rales or rhonchi present on auscultation. Gastrointestinal System: The abdomen is soft and nondistended. It is nontender on palpation and audible bowel sounds are present. DIAGNOSTIC DATA: CBC showed a hemoglobin of 8.4 and hematocrit of 26.8. In comparison, her hemoglobin was 8.5 and hematocrit 26.5 yesterday. Chemistry showed a potassium level of 3.4. The rest of the BMP is nondiagnostic. In comparison, her potassium level was 3 yesterday. Urinalysis was negative. Blood culture has been positive for E. coli that is sensitive to levofloxacin. It has also been sensitive to cefazolin and has been found to be ESBL negative. IMPRESSION: 1. Sepsis secondary to Escherichia coli. 2. Anemia with recent gastrointestinal bleed that is now stable. 3. Hypokalemia. 4. Paroxysmal atrial fibrillation. 5. Type 2 diabetes mellitus. PLAN: 1. The patient will be continued on levofloxacin IV and will be switched to oral levofloxacin at the time of discharge which could be possibly tomorrow. 2. The patient's anemia has been stable and we are going to have a repeat hemoglobin and hematocrit tomorrow morning to make sure that it is stable. The patient's daughter has agreed that the patient will go home on hospice if there is no drop in hemoglobin and hematocrit. She was on Eliquis because of paroxysmal atrial fibrillation but this has been discontinued and we are not going to restart her on Eliquis because of the risk of significant GI bleed. We will continue with Plavix and cilostazol however. 3. Hypokalemia. It has improved but we are going to give her another dose of 40 mEq of potassium chloride today. We will repeat a BMP tomorrow morning again. 4. Paroxysmal atrial fibrillation. That is now stable and we are going to treat her with sotalol 80 mg twice daily. She will continue with her clopidogrel and cilostazol but apixaban has been held because of significant GI bleed in the recent past and because of her advanced age. 5. Type 2 diabetes mellitus has been stable. For this the patient will continue with metformin along with a diabetic diet. 6. The patient has been having generalized weakness for which physical therapy has been advised. The patient will go home on hospice most likely tomorrow where she will get at home physical therapy. cc: MD Jagdish Alarcon MD
[2018-06-29] MEDS: NORCO-10 PO PRN ×2 (10:57→18:31)
[2018-06-29] MEDS: PROTONIX IV SCH ×2 (12:10→22:00)
[2018-06-29] MEDS: LEVAQUIN 750 MG/D5W 750 MG/150 ML IVPB IV SCH (12:10)
[2018-06-29] MEDS: SODIUM CHLORIDE 0.9% INJ SCH ×2 (12:10→22:00)
[2018-06-29 14:24] LABS: HEMATOCRIT 26.7 % (37.0-47.0); HEMOGLOBIN 8.6 g/dL (12.0-16.0)
[2018-06-29] MEDS: ELAVIL PO SCH (21:49)
[2018-06-29 22:41] LABS: HEMATOCRIT 27.2 % (37.0-47.0); HEMOGLOBIN 8.5 g/dL (12.0-16.0)
[2018-06-30 06:36] LABS: HEMATOCRIT 28.1 % (37.0-47.0); HEMOGLOBIN 8.8 g/dL (12.0-16.0)
[2018-06-30 06:53] LABS: AGAP 11; BUN 10 mg/dL (8-22); CALCIUM 8.2 mg/dL (8.8-10.2); CHLORIDE 104 mmol/L (98-107); COSMO 279; CREATININE 0.6 mg/dL (0.5-0.9); ESTIMATED GFR > 60; GLUCOSE 101 mg/dL (70-104); MAGNESIUM 1.8 mg/dL (1.5-2.7); SODIUM 140 mmol/L (136-145); TCO2 24 mmol/L (25-35)
[2018-06-30 07:29] VITALS: BP 144/66
[2018-06-30] MEDS: GLUCOPHAGE PO SCH (08:12)
[2018-06-30] MEDS: BETAPACE PO SCH (08:12)
[2018-06-30] MEDS: PLAVIX PO SCH (08:12)
[2018-06-30] MEDS: NORCO-10 PO PRN (08:12)
[2018-06-30] MEDS: PLETAL PO SCH (08:12)
[2018-06-30] MEDS: MIRALAX PO SCH (08:12)
[2018-06-30] MEDS: LASIX PO SCH (08:12)
[2018-06-30] MEDS ORDERED: LEVAQUIN PO ONE (10:17)
[2018-06-30] MEDS ORDERED: PROTONIX PO ONE (10:19)
--- NOTE | 2018-06-30 11:13 | DISCHARGE SUMMARY ---
ADMISSION DATE: 06/24/2018 DISCHARGE DATE: 06/30/2018 DISCHARGE DIAGNOSES: 1. Sepsis secondary to Escherichia coli. 2. Anemia secondary to gastrointestinal bleeding. 3. Hypokalemia. 4. Paroxysmal atrial fibrillation. 5. Type 2 diabetes mellitus. 6. Metabolic encephalopathy secondary to sepsis. HOSPITAL COURSE: This is a 78-year-old female, who has been a poor historian. She was admitted to the hospital after she was found to have metabolic encephalopathy and was found to have sepsis secondary to Escherichia coli. The patient has received IV antibiotics with which her condition has improved. Her culture came back positive for E coli that grew from her blood and was sensitive to levofloxacin that the patient received. Because of that, we are going to discharge her home on levofloxacin orally for the next 2 weeks. The patient also was found to have anemia and presumably GI bleed. They have refused to get any kind of GI scope done because the patient's family wants her to be on hospice and want to do minimal invasive treatment. We monitored her hemoglobin and hematocrit and have remained stable after her Eliquis was discontinued. She has remained on cilostazol and clopidogrel, however. She was also found to have significant hypokalemia that has also improved. Her paroxysmal atrial fibrillation and type 2 diabetes mellitus have remained stable throughout this hospital admission. Since patient's condition has been stable, she is going to be discharged home on hospice today. DISCHARGE MEDICATIONS: 1. Levofloxacin 500 mg orally once daily for 14 days. 2. Pantoprazole 40 mg orally once daily in the morning. 3. Amitriptyline 100 mg orally once daily at bedtime. 4. Cilostazol 100 mg orally twice daily. 5. Clopidogrel 75 mg orally once daily. 6. Furosemide 40 mg orally once daily in the morning. 7. Metformin 500 mg orally twice daily. 8. Aurora 10 mg orally three times a day as needed for pain. 9. Sotalol 80 mg orally twice daily. 10. MiraLAX 17 g orally once daily for constipation. FOLLOW-UP: she will follow up with her primary care physician, Dr. Austin, in approximately 1 to 2 weeks. Condition stable. Disposition home with hospice. cc: MD Jagdish Alarcon MD
== END 2018-06-30 11:36 | disposition hospice, home (50) | DRG 871 ==
LOC: P.ED 11:48 → P.MEDSURG 14:39 → SUATTDRO 14:39 → P.MEDSURG 15:01
PROVIDERS: ADMIT Family Medicine; ATTEND Internal Medicine
CPT/HCPCS: 36415; 36430; 51701; 70450; 70551; 71010; 71045; 80048; 80053; 80104; 80301; 80305; 81001; 82270; 82948; 83036; 83735; 84443; 84484; 85014; 85018; 85025; 85027; 86850; 86900; 86901; 86920; 87040; 87077; 87088; 87186; 87275; 87276; 87804; 93005; 96360; 99285; A9270; C9113; G0431; G0434; G0477; J1940; J1956; J2543; J3370; J7030; J7040; J7050; P9016; S0164; XXXXX

== ENCOUNTER 2018-07-15 19:07 | Inpatient (IN) ==
[2018-07-15 21:16] LABS: BASO# 0.01 X1000 (0.0-0.2); BASO% 0.1 % (0.0-0.8); EOS# 0.14 X1000 (0.0-0.7); EOS% 1.5 % (0.0-10.0); HEMATOCRIT 33.9 % (37.0-47.0); HEMOGLOBIN 10.6 g/dL (12.0-16.0); IMM GRAN# 0.03 X1000 (0.0-0.04); IMM GRAN% 0.3 % (0.0-0.5); LYMPH# 2.77 X1000 (1.2-3.4); LYMPH% 30.5 % (20.5-51.1); MCH 26.5 PG (27-31); MCHC 31.3 g/dL (33-37); MCV 84.8 FL (81-99); MONO# 0.54 X1000 (0.11-0.59); MPV 8.8 FL (7.4-10.4); NEUT# 5.58 X1000 (1.4-6.5); NEUT% 61.6 % (42.2-75.2); PLT 347 X1000 (130-400); RDW 14.5 % (11.5-14.5); WBC 9.07 X1000 (4.8-10.8)
[2018-07-15 21:30] LABS: INR 0.88; PROTIME 12.7 Seconds (11.0-16.0); PTT 32.1 Seconds (22.3-41.8)
[2018-07-15 21:45] LABS: AGAP 16; ALB/GLOB RATIO 1.1; ALBUMIN 3.5 g/dL (3.5-5.0); ALKALINE PHOSPHATASE 80 U/L (32-104); BUN 14 mg/dL (8-22); CALCIUM 8.5 mg/dL (8.8-10.2); CHLORIDE 95 mmol/L (98-107); COSMO 278; CREATININE 0.7 mg/dL (0.5-0.9); ESTIMATED GFR > 60; GLUCOSE 100 mg/dL (70-104); GOT 6 U/L (10-30); GPT < 5 U/L (10-36); POTASSIUM 3.3 mmol/L (3.5-5.1); SODIUM 139 mmol/L (136-145); TCO2 28 mmol/L (25-35); TOTAL BILIRUBIN 0.23 mg/dL (0.20-1.00); TOTAL PROTEIN 6.6 g/dL (6.3-8.3)
[2018-07-15] MEDS ORDERED: NORCO-5 PO ONE (22:23)
--- NOTE | 2018-07-15 22:49 | PROVIDER DOCUMENTATION ---
This chart was entered by Yusuf Masters Scribe, acting as scribe for Quinton Shen MD. HPI-Abdominal Pain/GI Problem - General Chief Complaint: GI Bleed Stated Complaint: gi bleed Time Seen by Provider: 07/15/18 19:50 Source: patient, EMS Allergies/Adverse Reactions: Patient Allergies Allergy/AdvReac Type Severity Reaction Status Date / Time No Known Allergies Allergy Verified 07/15/18 21:20 Home Medications: Home Medication List Medication Instructions Recorded Confirmed Last Taken Type Amitriptyline HCl 100 mg PO QHS 12/22/13 07/15/18 07/14/18 20:00 History Clopidogrel [Plavix] 75 mg PO BID 12/22/13 07/15/18 07/15/18 08:00 History Metformin [Glucophage] 500 mg PO BID 12/22/13 07/15/18 07/15/18 08:00 History Furosemide [Lasix] 40 mg PO DAILY tablet 06/13/18 07/15/18 07/15/18 08:00 Rx Sotalol [Betapace] 80 mg PO BID #60 tab 06/13/18 07/15/18 07/15/18 08:00 Rx Hydrocodone/Acetaminophen 1 tab PO TID PRN 06/24/18 07/15/18 07/15/18 08:00 History [Hydrocodone-Acetamin 10-325 mg] Cilostazol 100 mg PO BID 06/25/18 07/15/18 07/15/18 08:00 History Pantoprazole [Protonix] 40 mg PO DAILY@0700 #30 tab 06/30/18 07/15/18 07/15/18 08:00 Rx - History of Present Illness-ABD Nature of Presenting Problems: Pt is a 78 y/o F presents to the ED with a GI Bleed. EMS that is present sitting with family reports pt is on hospice care for chronic GI bleeding. EMS reports pt was discharge from [facility] days ago and the presents of dark blood was noticed today. Pt is a poor historian but when asked how she feels she reports no pain. She does states she has seen blood in her stool. Quality of Pain: reports: none Severity in ED: reports: mild Onset/Duration: reports: unsure Timing: reports: still present Activities at Onset: reports: none Exposure to sick contacts?: No Modifying Factors: improves with: nothing Associated Symptoms: denies: back/neck pain, cough, fever/chills, sinus congestion/drainage, nausea, shortness of breath, vomiting, trouble walking Dark Stools Present?: reports: black, tarry Rectal Bleeding: reports: none Review of Systems - Adult - REVIEW OF SYSTEMS - ADULT Constitutional: denies: chills, fever Eyes: reports: no symptoms reported Ears, Nose, Mouth & Throat: reports: no symptoms reported Cardiovascular: reports: no symptoms reported Respiratory: denies: cough, shortness of breath Gastrointestinal: reports: rectal bleeding. denies: abdominal pain, diarrhea, nausea, vomiting Genitourinary: denies: dysuria, discharge Musculoskeletal: denies: back pain Integumentary: reports: no symptoms reported Neurological: denies: dizziness/vertigo, headache/migraines Psychiatric: reports: no symptoms reported Endocrine: reports: no symptoms reported Hematologic/Lymphatic: reports: no symptoms reported Allergic/Immunologic: reports: no symptoms reported All Other Systems: Reviewed and Negative Past History - Adult - PAST MEDICAL HISTORY-ADULT Review of Records: reports: Old Records Reviewed, Nursing Assessment Review, Medications Reviewed Major Childhood Illnesses: reports: denies history Cardiovascular: reports: A-Fib, blood clots, HTN Respiratory: reports: COPD Gastrointestinal: reports: GI bleed Obstetrical/Gynecological: reports: denies history Genitourinary: reports: denies history Musculoskeletal: reports: arthritis, chronic pain, fibromyalgia, neck/back injury Neurological: reports: denies history Psychiatric: reports: denies history Endocrine/Immune: reports: Diabetes Other Conditions: reports: denies history - PRIOR SURGERIES/PROCEDURES Surgical/Procedure History: reports: appendectomy, cardiac stent, hysterectomy, back/neck - IMMUNIZATION STATUS Childhood Immunizations: See Nurse Assessment Flu Vaccine: See Nurse Assessment - FAMILY HISTORY Family History: reviewed, not pertinent - SOCIAL HISTORY Substance Use: none/never Living Situation: family Physical Exam-General - PHYSICAL EXAM-ADULT Initial Vital Signs Reviewed: Yes - CONSTITUTIONAL General Appearance: appears well, alert, no apparent distress - EYES Eyes: PERRL/EOMI, pink conjunctivae - HEAD, EARS, NOSE, MOUTH & THROAT HENMT: normal ENT inspection, TMs normal, pharynx normal - NECK Neck: non-tender, full range of motion, supple, normal inspection - RESPIRATORY Respiratory: lungs clear, normal breath sounds, no pleuratic chest pain, no respiratory distress - CARDIOVASCULAR Cardiovascular: normal peripheral pulses, regular rate, rhythm - GASTROINTESTINAL (ABDOMEN) Abdominal Exam: normal bowel sounds, non tender, soft, other (Pt wearing a pull up) - MUSCULOSKELETAL Back Exam: normal inspection, no CVA tenderness, no vertebral tenderness Extremity: normal range of motion, non-tender, normal gait, normal inspection, no pedal edema - SKIN Integumentary: normal color, normal turgor, warm/dry - NEUROLOGIC Neurologic: grossly normal, no motor/sensory deficits - PSYCHIATRIC Psych/Mental Status: normal mood/affect, normal thought content, normal thought process, oriented x 3 Progress - PLAN OF CARE/RESULTS Progress/Plan/Lab Results: Vital Signs - 8 hr 07/15/18 19:42 Temperature 98.5 F Pulse Rate 84 Respiratory Rate 18 Blood Pressure 113/54 O2 Sat by Pulse Oximetry 98 Hemoccult positive in the ER. Result Diagrams: 07/15/18 20:40 07/15/18 20:40 - CONSULTS/PCP/HOSPITALIST Notification #1 *Consult/PCP/Hospitalist*: Hosptialist- Dr Mcghee Time Discussed: 22:34 Reason/Comments: admission Consult Disposition: Will see in ED (accepts), Admit Departure - Departure Date of Disposition Decision: 07/15/18 Time of Disposition Decision: 22:49 DIAGNOSIS: GI bleed Disposition: ADMITTED INPATIENT 09 Certified Medical Emergency: Emergent Condition: Fair Referrals and Follow-Ups: Jagdish Austin MD [Primary Care Provider] - - Critical Care Note This patient required my direct & personal management of CC.: No Attestation - Physician/ JOAQUIN Attestation Patient care was provided by Advanced Practice Provider:: No The physician spent face to face time with patient:: Yes Advanced Practice Provider documentation review:: Supervising physician onsite and consulted in the evaluation and care of this patient. The physician did have a face to face encounter with the patient. This chart was documented by the indicated scribe, (Yusuf Masters Scribe) and accurately reflects the services I performed and decisions made by me, Quinton Shen MD, as attested by the provider's signature.
[2018-07-15] MEDS ORDERED: TYLENOL PO PRN (23:43)
[2018-07-15] MEDS ORDERED: PROTONIX 80 MG in NS 80 ML IV ONE (23:49)
[2018-07-16] MEDS ORDERED: POTASSIUM CHLORIDE 40 MEQ/SWI 40 MEQ/100 ML IVPB IV ONE (00:06)
[2018-07-16] MEDS: POTASSIUM CHLORIDE 20 MEQ/SWI 20 MEQ/100 ML IVPB IV SCH ×2 (01:03→05:30)
[2018-07-16] MEDS: NS 1,000 ML IV SCH ×2 (01:03→15:16)
[2018-07-16 01:20] LABS: HEMATOCRIT 31.8 % (37.0-47.0); HEMOGLOBIN 10.1 g/dL (12.0-16.0)
[2018-07-16] MEDS: OXY IR PO PRN ×5 (01:29→22:59)
[2018-07-16 07:55] LABS: BASO# 0.02 X1000 (0.0-0.2); BASO% 0.3 % (0.0-0.8); EOS# 0.09 X1000 (0.0-0.7); EOS% 1.2 % (0.0-10.0); HEMATOCRIT 32.4 % (37.0-47.0); HEMOGLOBIN 10.1 g/dL (12.0-16.0); IMM GRAN# 0.03 X1000 (0.0-0.04); IMM GRAN% 0.4 % (0.0-0.5); LYMPH# 3.14 X1000 (1.2-3.4); LYMPH% 42.1 % (20.5-51.1); MCH 26.6 PG (27-31); MCHC 31.2 g/dL (33-37); MCV 85.3 FL (81-99); MONO# 0.49 X1000 (0.11-0.59); MONO% 6.6 % (1.7-9.3); MPV 8.8 FL (7.4-10.4); NEUT# 3.69 X1000 (1.4-6.5); NEUT% 49.4 % (42.2-75.2); PLT 296 X1000 (130-400); RDW 14.7 % (11.5-14.5); WBC 7.46 X1000 (4.8-10.8)
[2018-07-16 08:04] LABS: INR 0.95; PROTIME 13.4 Seconds (11.0-16.0)
[2018-07-16 08:05] LABS: URINE SOURCE CLEAN CATCH
[2018-07-16 08:08] LABS: BILIRUBIN URINE NEGATIVE (NEGATIVE); BLOOD URINE NEGATIVE (NEGATIVE); COLOR YELLOW; GLUCOSE URINE NEGATIVE (NEGATIVE); KETONE URINE NEGATIVE (NEGATIVE); LEUKOCYTES URINE NEGATIVE (NEGATIVE); NITRITE URINE NEGATIVE (NEGATIVE); PROTEIN URINE NEGATIVE (NEGATIVE); SP GRAVITY URINE 1.011; TURBIDITY URINE CLEAR (CLEAR); UROBILINOGEN URINE NORMAL (NORMAL)
[2018-07-16 08:10] LABS: UR EPITHELIAL CELLS <10 /HPF (<10); URINE BACTERIA NEGATIVE /HPF; URINE RBC <10 /HPF (<10); URINE WBC <10 /HPF (<10)
[2018-07-16 08:10] LABS: AGAP 12; BUN 12 mg/dL (8-22); CALCIUM 8.5 mg/dL (8.8-10.2); CHLORIDE 99 mmol/L (98-107); COSMO 277; CREATININE 0.6 mg/dL (0.5-0.9); ESTIMATED GFR > 60; GLUCOSE 89 mg/dL (70-104); POTASSIUM 3.7 mmol/L (3.5-5.1); SODIUM 139 mmol/L (136-145); TCO2 28 mmol/L (25-35)
[2018-07-16] MEDS: PROTONIX IV SCH ×2 (09:45→20:08)
[2018-07-16] MEDS: SODIUM CHLORIDE 0.9% INJ SCH ×2 (09:45→20:08)
[2018-07-16] MEDS: LASIX PO SCH ×2 (10:25→11:39)
[2018-07-16] MEDS: BETAPACE PO SCH ×3 (10:25→20:04)
--- NOTE | 2018-07-16 10:32 | HISTORY AND PHYSICAL ---
CHIEF COMPLAINT: Blood in the stool. HISTORY OF PRESENT ILLNESS: This is a 78-year-old female who is seen outpatient by primary care doctor, Dr. Jagdish Austin. She was recently admitted to the hospital for a. fib with RVR and I believe, subsequently had a GI bleed. She was on both Eliquis and Plavix. She is now rate controlled with sotalol with a. fib. She was taken off of the Eliquis and continued the Plavix. From what I understand, she did not see a GI specialist. The patient has multiple comorbidities that include coronary artery disease status post stenting of the RCA, hypertension, diabetes mellitus type 2, nicotine dependence, peripheral vascular disease, chronic pain syndrome of the low back and multiple This is a TIAs as well as multiple DVTs of a right popliteal DVT and a right fracture. At any rate, tonight, the patient had her blood pressure checked at home. It was found to be in the 70s systolic so she came into the emergency room. The patient is on hospice and is a DNR level 1. Right at this moment her hemoglobin and hematocrit are stable. We will consult a GI specialist, admit the patient and manage conservatively. PAST MEDICAL HISTORY: See HPI. PREVIOUS SURGICAL HISTORY: 1. Back surgery x5. 2. Right patellar fracture with subsequent DVT formation. 3. Shoulder surgery. SOCIAL HISTORY: Stopped smoking around 2 weeks ago. No alcohol or illicit drugs. Lives with her . FAMILY HISTORY: Significant for cancer and diabetes. ALLERGIES: No known drug allergies. HOME MEDICATIONS: 1. Amitriptyline 100 mg p.o. at bedtime. 2. Clopidogrel 75 mg p.o. b.i.d. 3. [place] 10 p.o. t.i.d. 4. Metformin 500 mg p.o. b.i.d. 5. Protonix 40 mg p.o. daily. 6. Furosemide 40 mg p.o. daily. 7. Sotalol 80 mg p.o. b.i.d. REVIEW OF SYSTEMS: Fourteen point review of systems conducted with the patient and pertinent positives list above in the HPI. She also complained of low back pain 10/10 which is for the most part chronic. All other systems were reviewed and found to be negative. PHYSICAL EXAMINATION: VITAL SIGNS: Temperature 98.5 degrees, pulse 87, respirations 18, blood pressure 127/65, oxygen saturation 97% on room air. GENERAL: Very pleasant 78-year-old female lying in the ER stretcher. She is alert and oriented x3. Answers all questions appropriately. Surrounded by family who is very supportive. HEENT: Head is atraumatic, normocephalic. Pupils equal, round and reactive to light. Extraocular eye movements intact. Sclerae anicteric. Conjunctivae pale. Oral mucosa is mildly dry and tacky. NECK: Supple. No JVD. No carotid bruit. Trachea is midline. No cervical lymphadenopathy. CARDIAC: S1 and S2 are appreciated. No murmurs, gallops, rubs. LUNGS: Decreased bilaterally but clear to auscultation. No rhonchi, wheezes, rales. Symmetrical rise and fall of respirations. ABDOMEN: Soft, nondistended, nontender. Bowel sounds present in all 4 quadrants. Normoactive. No pulsatile mass. No organomegaly. EXTREMITIES: No cyanosis, clubbing or edema. 2+ pedal pulses bilaterally. Right knee and posterior to right knee is tender to palpation. GENITOURINARY: No bladder distention. Patient voids, otherwise deferred. NEUROLOGICAL: Alert and oriented x3. Cranial nerves 2-12 grossly intact. LABORATORY DATA: Hemoglobin 10.6, hematocrit 33.9. Coags within normal limits. Sodium 139, potassium 3.3, chloride 95, carbon dioxide 28. BUN 14, creatinine 0.7, glucose 100. ASSESSMENT AND PLAN: 1. GI bleed. We will consult Gastroenterology. High dose PPI. We will hold Plavix at this time. NPO after midnight. We will trend hemoglobin and hematocrit. 2. Atrial fibrillation which is rate controlled. As noted, we will hold Plavix. She was previously taken off Eliquis. Continue sotalol 80 mg p.o. b.i.d. 3. Hypokalemia. Replace and recheck tomorrow morning. 4. Chronic pain syndrome. Patient takes [place] at home which has not been working. We will put on oxycodone IR 5 mg p.o. q.3 hours p.r.n. pain. 5. Hypertension. Continue home medications. 6. Code status: The patient is a DNR level 1. Further recommendations per patient's clinical course. Dictated by PAMELA Horvath for MD Abrahan Purcell#: [id number] cc: MD Reji Paez CRNP [place]unle P. Akinsoto, MD Independent exam and assessment was performed by me at bedside with BI[employer] ENGINEERING MANAGER>. Suspect UGI bleed in this patient and high dose PPIs will be given . Shortly after endoscopy, it will be prudent to restart patient back on antiplatelet medications due to the fact she has a RCA stent at risk for occlusion. Exam was grossly normal . MTDD
--- NOTE | 2018-07-16 18:22 | GASTROENTEROLOGY CONSULTATION ---
DATE: 07/16/2018 REASON FOR CONSULT: GI bleed HISTORY OF PRESENT ILLNESS: Ms. Deann Hayes is a 78 year old woman with HTN, diabetes, CAD s/p stent ( 12 years ago) on plavix, multiple DVTs, started on Eliquis 2 weeks ago after admission with afib with RVR who presents with dark black stools 2 weeks ago and then again prior to admission. She denies N/V/D CP, SOB. +constipation. No prior EGD/colonoscopy. History of chronic pain. No NSAIDs. Of note, patient was transfused 2 units during her recent hospitalization and was discharged on hospice for her multiple medical issues. Her hospice status was reversed upon admission. REVIEW OF SYMPTOMS: as per HPI; otherwise, 12-point ROS negative PREVIOUS SURGICAL HISTORY: - Back surgery x5. - Right patellar fracture with subsequent DVT formation. - Shoulder surgery. SOCIAL HISTORY: Stopped smoking around 2 weeks ago. No alcohol or illicit drugs. Lives with her . FAMILY HISTORY: Significant for CRC in mother. ALLERGIES: No known drug allergies. HOME MEDICATIONS: 1. Amitriptyline 100 mg p.o. at bedtime. 2. Clopidogrel 75 mg p.o. b.i.d. 3. [place] 10 p.o. t.i.d. 4. Metformin 500 mg p.o. b.i.d. 5. Protonix 40 mg p.o. daily. 6. Furosemide 40 mg p.o. daily. 7. Sotalol 80 mg p.o. b.i.d. PHYSICAL EXAM VS: T 98 HR 70 RR 18 BP 124/66 98% RA GEN: awake, alert, NAD HEENT: Sclerae anicteric. Moist mucous membranes. Neck: No JVD. No lymphadenopathy Cardiac: irregularly irregular, no murmurs. Lungs: CTAB, no wheezing or crackles Abdomen: soft, NT/ND, NABS, no rebound or guarding Extremities: No clubbing, cyanosis or edema. Skin: WWP Neurologic: Nonfocal Psychiatric:Normal affect. LABORATORY DATA BMP WNL WBC 7.5 hgb 10.1 plts 296K INR 0.95 UA neg ASSESSMENT AND PLAN Ms. Deann Hayes is a 78 year old woman with HTN, diabetes, CAD s/p stent ( 12 years ago) on plavix, multiple DVTs, started on Eliquis 2 weeks ago after admission with afib with RVR who presents with dark black stools concerning for UGIB cannot rule out LGIB. No localizing symptoms to suggest UGI vs LGI origin. Patient on dual anti-platelet therapy. Unclear if patient should still be on plavix since stent was placed 12 years ago. Recently started on Eliquis. Holding both in setting of GI bleed. Hgb 10.1 from 10.6; however, increased from last admission (7.3). #GI Bleed - continue PPI IV BID - holding blood thinners, lovenox/MELINDA - NPO after MN for diagnostic EGD tomorrow #AFIB: on sotalol; holding Eliquis #CAD: holding plavix #Anemia: from GI blood loss #OA/chronic pain: on analgesics Thank you for this consult. Will follow with you. Please call with questions or concerns. [facility]INVIEW HOSPITALBipin
[2018-07-17] MEDS: NS 1,000 ML IV SCH ×3 (02:27→15:44)
[2018-07-17 07:29] LABS: HEMATOCRIT 32.2 % (37.0-47.0); MCH 26.8 PG (27-31); MCHC 31.1 g/dL (33-37); MCV 86.3 FL (81-99); MPV 8.9 FL (7.4-10.4); RBC 3.73 XMIL (4.2-5.4); RDW 14.8 % (11.5-14.5); WBC 7.84 X1000 (4.8-10.8)
[2018-07-17 07:51] LABS: AGAP 10; BUN 7 mg/dL (8-22); CALCIUM 8.3 mg/dL (8.8-10.2); CHLORIDE 101 mmol/L (98-107); COSMO 275; CREATININE 0.7 mg/dL (0.5-0.9); ESTIMATED GFR > 60; GLUCOSE 94 mg/dL (70-104); POTASSIUM 3.8 mmol/L (3.5-5.1); SODIUM 139 mmol/L (136-145); TCO2 28 mmol/L (25-35)
[2018-07-17] MEDS ORDERED: DIPRIVAN 1% ONE (08:51)
[2018-07-17] MEDS ORDERED: XYLOCAINE-MPF 2% ONE (08:52)
[2018-07-17] MEDS: LASIX PO SCH (09:48)
[2018-07-17] MEDS: PROTONIX IV SCH ×2 (09:48→20:50)
[2018-07-17] MEDS: BETAPACE PO SCH ×2 (09:48→20:50)
--- NOTE | 2018-07-17 09:51 | OPERATIVE NOTE ---
PROCEDURE DATE : 07/17/2018 PROCEDURE PERFORMED: Upper gastrointestinal endoscopy. PROVIDER: Raul Pena MD INDICATION: Hematochezia, anemia, melena. MEDICATIONS: Monitored anesthesia care. DESCRIPTION OF PROCEDURE: Prior to the procedure, a history and physical was performed, and the patient's medication and allergies were reviewed. The patient's tolerance to previous anesthesia was also reviewed. The risks and benefits of the procedure and the sedation options and risks were discussed with the patient. All questions were answered. Informed consent was obtained. After reviewing the risks and benefits, the patient was deemed in satisfactory condition to undergo the procedure. The endoscope was passed under direct visualization. Throughout the procedure, the patient's blood pressure, pulse and oxygen saturations were monitored continuously. The endoscope was introduced through the mouth and advanced to the second part of the duodenum. The upper GI endoscopy was accomplished without difficulty. The patient tolerated the procedure well. COMPLICATIONS: No immediate complications. ESTIMATED BLOOD LOSS: None. FINDINGS: - Normal esophagus. Z-line regular at 40 cm from the incisors. - Stomach revealed mild striped erythema in the gastric body consistent with gastritis. Biopsies were not obtained given GI bleed. - Duodenal bulb and second portion of duodenum were normal. IMPRESSION: - Mild gastritis. RECOMMENDATIONS: - Start clear liquid diet. - Will prep with 4 liters GoLytely this evening - NPO after MN for colonoscopy tomorrow - Will follow with you. Please call with any questions or concerns. MTDD
[2018-07-17] MEDS: OXY IR PO PRN ×4 (10:00→22:14)
--- NOTE | 2018-07-17 15:15 | PROGRESS NOTE ---
DATE: 07/17/2018 SUBJECTIVE: The patient reports feeling fine. Denies any more signs of bleeding. No vomiting blood or having blood in stool. OBJECTIVE: Vital Signs: Temperature 97.3, heart rate 67, pulse 65, respiratory rate 18, blood pressure 125/49. O2 saturation 100% on room air. General: This is a 78-year- old female lying in bed in no acute distress. HEENT: Head is normocephalic and atraumatic. Neck: No JVD noted. No carotid bruits. No lymphadenopathy. No thyromegaly. Cardiovascular: S1, S2 heard. No murmurs, gallops, or rubs. Regular rate and rhythm. Respiratory: Clear bilaterally to auscultation. No work of breathing or using accessory muscles. Abdomen is soft , a little bit distended but nontender to palpation. Bowel sounds present. No organomegaly. Extremities: No clubbing, cyanosis, or edema. Peripheral pulses present in both legs. Neurologic: Patient alert and oriented x3. Moves 4 extremities. LABORATORY DATA: White cell count 7.84, hemoglobin 10.0, hematocrit 32.2, platelets 263,000. Normal BMP. ASSESSMENT AND PLAN: 1. Gastrointestinal bleeding. Patient has been scoped today and, so far, upper endoscopy shows acute gastritis. Patient currently is on pantoprazole 40 mg IV q.12 hours. We are going to add sucralfate to his current treatment and the patient is scheduled to have a colonoscopy tomorrow per Dr. Pena We will follow recommendations. 2. Atrial fibrillation, rate controlled. Plavix has been held. The patient also has been on Eliquis which has been held already. We will continue with sotalol 80 mg p.o. b.i.d. 3. Hypokalemia, resolved. 4. Chronic pain syndrome. Patient is on oxycodone 5 mg p.o. q. 3 hours p.r.n. We will continue with the same management. 5. Hypertension. Blood pressure is under control. We will continue with the same management. DISPOSITION: We will see what the colonoscopy reveals, and I think if that is normal, it will be reasonable to let this patient go. cc: MD CHELSEA Calderon
[2018-07-17] MEDS ORDERED: GOLYTELY PO SCH (18:00)
[2018-07-17] MEDS: CARAFATE LIQUID PO SCH (20:50)
[2018-07-17] MEDS: ZOFRAN IV PRN (20:50)
[2018-07-18] MEDS: CARAFATE LIQUID PO SCH ×4 (00:39→20:39)
[2018-07-18] MEDS: NS 1,000 ML IV SCH ×3 (06:23→22:37)
[2018-07-18] MEDS ORDERED: CALMOSEPTINE OINTMENT TOP ONE (07:56)
[2018-07-18] MEDS ORDERED: XYLOCAINE-MPF 2% ONE (08:07)
[2018-07-18] MEDS ORDERED: ROBINUL ONE (08:07)
[2018-07-18] MEDS ORDERED: DIPRIVAN 1% ONE ×2 (08:08→10:02)
[2018-07-18 08:20] LABS: HEMATOCRIT 32.3 % (37.0-47.0); HEMOGLOBIN 9.9 g/dL (12.0-16.0); MCH 26.5 PG (27-31); MCHC 30.7 g/dL (33-37); MCV 86.4 FL (81-99); MPV 9.1 FL (7.4-10.4); RBC 3.74 XMIL (4.2-5.4); RDW 14.7 % (11.5-14.5); WBC 6.77 X1000 (4.8-10.8)
[2018-07-18 08:49] LABS: AGAP 11; BUN 5 mg/dL (8-22); CHLORIDE 102 mmol/L (98-107); COSMO 276; CREATININE 0.6 mg/dL (0.5-0.9); ESTIMATED GFR > 60; GLUCOSE 88 mg/dL (70-104); POTASSIUM 3.2 mmol/L (3.5-5.1); SODIUM 140 mmol/L (136-145); TCO2 27 mmol/L (25-35)
[2018-07-18] MEDS ORDERED: FENTANYL ONE (09:15)
[2018-07-18] MEDS ORDERED: ZOFRAN ONE (09:16)
[2018-07-18] MEDS ORDERED: LABETALOL (DOSE) ONE (09:58)
--- NOTE | 2018-07-18 11:30 | OPERATIVE NOTE ---
PROCEDURE DATE: 07/18/2018 ATTENDING PHYSICIAN: Dr. Camilo. PRIMARY CARE DOCTOR: Jagdish Austin MD. PERFORMING PHYSICIAN: Dano Frederick MD. TITLE OF PROCEDURE: Colonoscopy with biopsy of the colon mass and submucosal injection at the site. PREOPERATIVE DIAGNOSES: 1. Gastrointestinal bleed. 2. Anemia. 3. Esophagogastroduodenoscopy done yesterday with no signs of active bleeding. POSTOPERATIVE DIAGNOSES: 1. Diverticulosis in the left colon. 2. Torturous left colon. 3. Obstructing mass at 70 cm from the anal verge. The colonoscope could not pass. Likely it is in the transverse colon or the splenic flexure area. This is biopsied and tattooed with Cynthia ink. ESTIMATED BLOOD LOSS: Minimal. COMPLICATIONS: None. ANESTHESIA: Monitored anesthesia care per the nurse account manager. SPECIMEN: Colon mass. PROCEDURE: After informed consent, the patient and family explained the risks, benefits, indications, alternatives to the procedure for colonoscopy. The risks of the procedure, including infection, bleeding, pain, trauma to the surrounding structures, perforation, , among others were explained the patient, family, and they acknowledged and agreed to proceed with the surgery. The patient was brought to the OR. She was turned in a left lateral position. Rectal exam was performed, which revealed normal rectal tone. No masses felt. No blood on the examining finger. The colonoscope was introduced through the anal orifice and traversed all the way to 70 cm from the anal verge. There was evidence of obstructive mass causing inability of the colonoscope to pass. This was biopsied and submitted for pathology. We also marked the site with Cynthia ink. The left colon, sigmoid and descending was torturous with extensive diverticulosis. There was evidence of retained stool which was suctioned out. There was evidence of internal hemorrhoids in the anus. The air was aspirated. Scope withdrawn. The patient tolerated the procedure well and is being monitored in the OR in stable condition. RECOMMENDATIONS: 1. The patient will be on full liquid diet. 2. We will start her on Ensure 3 times daily. 3. Will call surgery consult. 4. We will call Oncology consult. 5. We will check CEA. 6. We will watch her blood counts. Transfuse as needed. 7. Above plan was discussed with the patient's family and all questions answered. Please call us with any further questions. cc: MD Jagdish Courtney MD MTDD
[2018-07-18] MEDS: SODIUM CHLORIDE 0.9% INJ SCH ×2 (12:06→20:45)
[2018-07-18] MEDS: LASIX PO SCH (12:06)
[2018-07-18] MEDS: BETAPACE PO SCH ×2 (12:06→20:39)
[2018-07-18] MEDS: PROTONIX IV SCH ×2 (12:06→20:45)
--- NOTE | 2018-07-18 13:07 | GENERAL SURGERY CONSULTATION ---
DATE: 07/18/2018 REASON FOR CONSULTATION: Colon mass. REQUESTING PHYSICIAN: Dr. Frederick. HISTORY OF PRESENT ILLNESS: This is a 78-year-old female, who has had apparent lower GI bleeding for the last several weeks, described as dark or black. It initially began during her previous admission last month when she was treated for atrial fibrillation with RVR. She underwent cardioversion, the bleeding seemed to stop, and she was discharged home on Plavix. She then was noted to be hypotensive by her family member 3 days ago with more dark black stool. It was also Hemoccult positive, and she was brought back to the emergency room. She underwent colonoscopy today with findings of a large, nearly obstructing tumor 70 cm from the anal verge. The scope could not pass through it. It was not actively bleeding. She denies any abdominal pain. Her bowel movements, other than recently turning black, have had a more sticky consistency, but no decrease in caliber. She denies any constipation, nausea, or vomiting. She does report a greater- [id number] weight loss over the last year or more. PAST MEDICAL HISTORY: Atrial fibrillation, type 2 diabetes, coronary artery disease status post stenting, hypertension, right popliteal nonocclusive DVT, right patella fracture , TIAs. PAST SURGICAL HISTORY: Multiple back surgeries, a j luis is in her right femur, shoulder surgery, abdominal hysterectomy. HOME MEDICATIONS: Amitriptyline, Plavix, Clovis, metformin, Protonix, furosemide , sotalol. FAMILY HISTORY: Her mother had colon cancer. SOCIAL HISTORY: She stopped smoking a few weeks ago. No alcohol or illicit drug use. She lives with her . ALLERGIES: No known drug allergies. REVIEW OF SYSTEMS: Ten systems were reviewed and negative, except as noted above. PHYSICAL EXAMINATION: Vital Signs: Temperature 97.8 degrees, pulse 69, respirations 14, blood pressure 143/70. General: She is a well-developed, well-nourished female, who looks her stated age, in no acute distress. HEENT: Normocephalic, atraumatic. Extraocular muscles intact. Pupils equal, round, and reactive to light. Sclerae anicteric. Moist mucous membranes. Hearing is slightly decreased. Neck: Supple. No thyromegaly. Lymph: No cervical, supraclavicular, or periumbilical lymph nodes appreciated. Cardiovascular: Regular rate and rhythm. Respiratory: Bilateral equal breath sounds. No work of breathing. Gastrointestinal: Soft, nontender, nondistended. No organomegaly or mass. Well-healed lower midline incision. Extremities: No clubbing, cyanosis, or edema. Skin: Warm and dry. No rash. Musculoskeletal: Moves all extremities equally and well. LABORATORY DATA: White blood cell count 6.7, hemoglobin 9.9, hematocrit 32.3, platelet count 253,000. Sodium 140, potassium 3.2, chloride 102, CO2 of 27, BUN 5, creatinine 0.6, glucose 88, calcium 8.0. Liver function tests normal. Urinalysis negative. IMAGING: None this admission. Chest x-ray on 06/24/2018 was negative. ASSESSMENT AND PLAN: A 78-year-old female with lower gastrointestinal (GI) bleed secondary to nearly obstructing colon mass, likely colorectal cancer. We will obtain a CT scan of the abdomen and pelvis today for further staging and surgical planning. I have recommended her open left hemicolectomy. I went over the risks and benefits, including bleeding, infection, injury to surrounding organs, anastomotic leak, and other imponderables. She understands and agrees to proceed. We will delay surgery a few more days as she had Plavix 3 days ago, and she is not currently obstructed or bleeding significantly. cc: Adrián Torres MD [facility]
--- NOTE | 2018-07-18 13:48 | Diag Imaging Result Doc PS360 ---
EXAM: CT ABDOMEN/PELVIS W/WO CONTRAS 07/18/2018 HISTORY: colon mass TECHNIQUE: This exam was performed using automated exposure control, adjustment of mA or kV according to patient size, and/or use of iterative reconstruction technique. COMMENT: There is a somewhat poorly defined nodular opacity in the posterior costophrenic sulcus of the left lower lobe. There are no previous abdominal studies available for comparison however there is a previous CT of the chest dated 06/02/2018 on which there was a larger opacity in this location. This may represent residual atelectasis or pneumonia. There is a calcified granuloma more superiorly in the left lower lobe. There are numerous granulomata in the liver and spleen. There are no apparent gallstones. There are vascular calcifications in the aorta and its branches including both renal arteries. There is no definite evidence of nephrolithiasis. The mesenteric and renal arteries appear to be patent. There is slight dilatation of the infrarenal abdominal aorta with a fairly large noncalcified plaque or mural thrombus with a maximum AP diameter of 2.7 cm. There is a lucent lesion in the spleen seen best on image 16 of the arterial phase which was also present at the time the previous CT of the chest measuring 15 mm in diameter. The adrenal glands are nonenlarged. The kidneys are without evidence of hydronephrosis or mass. There is no evidence of hepatic metastatic disease. The pancreas is slightly atrophic. There is no evidence of bowel obstruction. There is some apparent irregularity of the serosal contour of a portion of the descending colon around image 71 with slightly increased enhancement in the mucosa which appears thickened. There is some questionable pericolonic adenopathy with nodes which are not particularly enlarged but are somewhat prominent in this area but most notably on image 76 with the nodes measuring up to about 6 mm in diameter. There is no evidence of appendicitis. Pelvis: The urinary bladder is not distended. There is no evidence of free fluid. There has been hysterectomy. There is no evidence of diverticulitis or significant adenopathy. There has been previous internal fixation of the right femur. There is generalized osteopenia of the regional skeleton. There is some sclerosis in both sacroiliac joints. There is vacuum disc phenomenon at the L4-5 level with some gas seen in the epidural space on the left side which may be indicative of herniated nucleus pulposis. There is mild spinal stenosis present at L1-2 and L2-3. IMPRESSION: The lesion mentioned in the history may correspond with the abnormality seen in the descending colon, and if so there may be invasion beyond the serosa into the surrounding fat and there may be some regional adenopathy in the paracolic nodes. Otherwise, there is no evidence of metastatic disease. Improving atelectasis in the left lower lobe. Electronically signed by Rickey Arboleda 07/18/2018 1:46 PM
[2018-07-18] MEDS: OXY IR PO PRN ×3 (16:12→22:36)
[2018-07-18] MEDS: KLOR-CON PO SCH ×3 (16:12→23:02)
--- NOTE | 2018-07-18 17:19 | PROGRESS NOTE ---
DATE: 07/18/2018 INTERVAL HISTORY: The patient underwent a colonoscopy which had detected a colonic mass obstructing at 70 cm from the anal verge, likely in the transverse colon or in the splenic flexure area, which was biopsied and tattooed with Cynthia ink. Surgery was consulted who obtained CT scan abdomen and pelvis, which had detected a suspected mass in descending colon, which was going beyond the serosa with some paracolic adenopathy. SUBJECTIVE: The patient denies any nausea/vomiting, abdominal pain. She has been started on liquid diet, which she has tolerated so far well. I discussed with the patient and her family member at bedside about a mass concerning for neoplasm and the fact that I would consult Oncology. OBJECTIVE: Vital signs: Currently temperature 97.4 degrees, pulse 69 per minute, blood pressure 140/60, saturating 100% on room air. General: Does not appear in any acute distress. HEENT: Oral cavity is moist. Lungs: Air entry bilaterally equal. No wheeze, rhonchi , or crackles. Cardiovascular: S1, S2 normal. No murmur, rub, gallop. Abdomen: Soft, nontender. No lower extremity edema. Neurologic: Alert, oriented x3. DIAGNOSTIC STUDIES: Suggestive of stable hemoglobin, hematocrit, and platelet count. No leukocytosis. Hypokalemia. Normal kidney function. ASSESSMENT AND PLAN: 1. Likely lower gastrointestinal bleed. EGD suggested acute gastritis. Colonoscopy suggestive of colonic mass, likely neoplastic. Continue pantoprazole IV b.i.d. Follow up daily CBC. 2. Suspicious colonic mass in transverse or descending colon, suspicious for colon cancer. Surgery on board, planning likely hemicolectomy on the left side once effect of Plavix wears off, likely early next week. CT scan of the abdomen and pelvis did not detect any metastatic disease. Oncology has been consulted as well. 3. Atrial fibrillation, currently in normal sinus rhythm based on bedside monitor. Continue home sotalol. She was previously discontinued off Eliquis because of GI bleed early in the month. Continue to hold Plavix. 4. Hypokalemia. Being repleted. 5. Chronic pain. Continue patient's home oxycodone. 6. Hypertension. 7. Coronary artery disease status post right coronary artery (RCA) stent. Continue home furosemide. Continue to hold Plavix. The patient has also been started on alvimopan prophylactically for postoperative ileus and preparing her for the surgery. DISPOSITION: Patient remains inside the hospital while she awaits surgical exploration. Plan of care was discussed with her and her family () at bedside. All of their questions have been answered. cc: Elio Camilo MD MTDD
[2018-07-19] MEDS: OXY IR PO PRN ×3 (01:55→20:44)
[2018-07-19] MEDS: CARAFATE LIQUID PO SCH ×3 (01:55→14:50)
[2018-07-19 07:25] LABS: HEMATOCRIT 30.8 % (37.0-47.0); HEMOGLOBIN 9.6 g/dL (12.0-16.0); MCHC 31.2 g/dL (33-37); MCV 86.5 FL (81-99); MPV 8.8 FL (7.4-10.4); RBC 3.56 XMIL (4.2-5.4); RDW 14.7 % (11.5-14.5); WBC 7.9 X1000 (4.8-10.8)
[2018-07-19 07:51] LABS: AGAP 9; BUN 4 mg/dL (8-22); CALCIUM 8.1 mg/dL (8.8-10.2); CHLORIDE 103 mmol/L (98-107); COSMO 270; CREATININE 0.5 mg/dL (0.5-0.9); ESTIMATED GFR > 60; GLUCOSE 92 mg/dL (70-104); POTASSIUM 4.2 mmol/L (3.5-5.1); SODIUM 137 mmol/L (136-145); TCO2 25 mmol/L (25-35)
[2018-07-19] MEDS ORDERED: MIRALAX PO SCH (09:00)
--- NOTE | 2018-07-19 09:07 | PROGRESS NOTE ---
DATE: 07/19/2018 INTERVAL HISTORY: No acute overnight events. The patient's and daughter are at bedside. The patient's daughter was concerned about her chronic back pain and not getting enough medications since she has had multiple back surgeries in the past, they were also concerned about the patient's episodes of acute confusion. I reviewed the image of MRI and discussed with them that there is a possibility of vascular dementia and then she should follow up with her regular doctor as an outpatient for formal diagnosis. SUBJECTIVE: Patient denies nausea, vomiting, or abdominal pain. She ate some liquid food yesterday. Has not had a bowel movement. VITALS: Temperature 98.1 degrees, pulse 65, blood pressure 137/61, saturating 97% on room air. OBJECTIVE: General: Does not appear in any acute distress. Oral cavity: Moist. Lungs: Air entry bilaterally equal. No wheeze or rhonchi. Mild crackles in bilateral bases. Heart: S1, S2 normal. Regular. No murmur, rub, or gallop. Abdomen: Soft, tender in left lower quadrant. No rebound or rigidity or guarding. Extremities: No lower extremity edema. Neurologic: She is able to follow all simple commands. Does not appear in any acute distress. Able to raise all extremities above ground level. Pupils bilateral equal and reacting to light. No facial droop or ptosis. LABS: Today suggestive of stable hemoglobin of 9.6, platelet count of 224,000. Resolution of hypokalemia. Normal kidney function. No new microbiological data. No new imaging. ASSESSMENT AND PLAN: 1. Lower gastrointestinal bleed likely from colon cancer, now resolved. She has not had any more bloody bowel movements. Continue to monitor complete blood count. Esophagogastroduodenoscopy had suggested acute gastritis. Colonoscopy suggestive of obstructing colonic mass. No need of transfusion at the moment. 2. Suspicious colon cancer in the transverse or descending colon. Surgery on board and planning, likely hemicolectomy. Continue to hold cilostazol and Plavix. I have also consulted Oncology to establish care. CT scan of abdomen and pelvis did not detect any metastatic disease to distant abdominal organs. 3. Acute gastritis. Continue pantoprazole and sucralfate. 4. History of atrial fibrillation, currently normal sinus rhythm. Continue home sotalol. She was previously taken off Eliquis because of gastrointestinal bleed early in the month. Continue to hold Plavix for anticipated surgery. 5. Chronic back pain with multiple back surgeries. Currently, continue patient on oxycodone. Start lidocaine patch and home amitriptyline. 6. Hypokalemia, resolved. 7. Deep venous thrombosis prophylaxis, enoxaparin. 8. Continue MiraLAX to avoid constipation. Continue home furosemide. The patient has also been started on Alvimopan by surgical team, likely at preparation for abdominal surgery, as prophylaxis for ileus. 9. Disposition. Patient remains in the hospital with likely surgical plan for early next week. Plan of care were discussed with the patient, her who is surrogate decision-maker. All of the questions have been answered satisfactorily. cc: Elio Camilo MD MTDD
[2018-07-19] MEDS: LIDODERM TOP SCH (09:45)
[2018-07-19] MEDS: LOVENOX SUBQ SCH (09:46)
[2018-07-19] MEDS: SODIUM CHLORIDE 0.9% INJ SCH ×2 (09:46→20:46)
[2018-07-19] MEDS: TYLENOL PO SCH ×2 (09:46→16:43)
[2018-07-19] MEDS: LASIX PO SCH (09:46)
[2018-07-19] MEDS: PROTONIX IV SCH ×2 (09:46→20:46)
[2018-07-19] MEDS: BETAPACE PO SCH ×2 (09:47→20:46)
--- NOTE | 2018-07-19 12:19 | GASTROENTEROLOGY PROGRESS NOTE ---
DATE: 07/19/2018 S: No acute overnight events. Afebrile. Denies N/V/F, CP, SOB. Mild RLQ abdominal pain PHYSICAL EXAM VS: T 98.1 HR 65 RR 20 BP 141/97 97 RA GEN: awake, alert, NAD HEENT: Sclerae anicteric. Moist mucous membranes. Neck: No JVD. No lymphadenopathy Cardiac: irregularly irregular, no murmurs. Lungs: CTAB, no wheezing or crackles Abdomen: soft, ND, NABS, mild TTP RLQ; no rebound or guarding Extremities: No clubbing, cyanosis or edema. Skin: WWP Neurologic: Nonfocal Psychiatric:Normal affect. LABORATORY DATA WBC 7.9 hgb 9.6 plt 224 IMAGING: IMPRESSION: The lesion mentioned in the history may correspond with the abnormality seen in the descending colon, and if so there may be invasion beyond the serosa into the surrounding fat and there may be some regional adenopathy in the paracolic nodes. Otherwise, there is no evidence of metastatic disease. Improving atelectasis in the left lower lobe. COLONOSCOPY 07/18/2018 POSTOPERATIVE DIAGNOSES: 1. Diverticulosis in the left colon. 2. Torturous left colon. 3. Obstructing mass at 70 cm from the anal verge. The colonoscope could not pass. Likely it is in the transverse colon or the splenic flexure area. This is biopsied and tattooed with Cynthia ink. EGD 07/17/2018 FINDINGS: - Normal esophagus. Z-line regular at 40 cm from the incisors. - Stomach revealed mild striped erythema in the gastric body consistent with gastritis. Biopsies were not obtained given GI bleed. - Duodenal bulb and second portion of duodenum were normal. ASSESSMENT AND PLAN Ms. Deann Hayes is a 78 year old woman with HTN, diabetes, CAD s/p stent ( 12 years ago) on plavix, multiple DVTs, afib on Eliquis admitted with hematochezia s/p EGD and colonoscopy. EGD showed gastritis. Colonoscopy revealed partially obstructing colonic mass 70cm from anal verge s/p biopsy and tattoo. Staging CTAP shows possible invasion through serosa into surrounding fat and regional adenopathy/paracolic nodes; no other evidence of metastatic disease. Surgery consulted and planning on hemicolectomy early next week. #Partially obstruction colonic mass - awaiting pathology - Surgery following, apprec recs - Oncology consulted - holding blood thinners - on full liquid diet #GI Bleed: hgb stable; from above - continue PPI IV BID - holding blood thinners, lovenox/MELINDA - transfuse as needed to maintain hgb 7-8 #AFIB: on sotalol; holding Eliquis #CAD: holding plavix #Anemia: from GI blood loss #OA/chronic pain: on analgesics Will follow with you. Please call with questions or concerns. [facility]
[2018-07-19] MEDS: COLACE PO SCH ×2 (14:49→20:44)
--- NOTE | 2018-07-19 16:25 | Diag Imaging Result Doc PS360 ---
EXAM: MRI BRAIN W/WO CONTRAST - 07/19/2018 HISTORY: Hx colon mass, eval worsening confusion TECHNIQUE: MRI brain without and with contrast. Images are obtained prior to and following gadolinium ministration. COMPARISON: 06/24/2018 FINDINGS: There are chronic microvascular ischemic changes. There are old small infarcts at the right frontal lobe and left occipital lobe. The diffusion weighted images show no areas of restricted diffusion (no evidence of acute infarct). There is no evidence of intracranial hemorrhage, mass effect, midline shift, or hydrocephalus. There is no abnormal enhancement identified. IMPRESSION: Chronic ischemic changes. No visible acute intracranial abnormality. No evidence of metastatic disease to the brain. Electronically signed by Dustin Woodson 07/19/2018 4:23 PM
[2018-07-19] MEDS: ELAVIL PO SCH (20:46)
--- NOTE | 2018-07-19 21:09 | GENERAL SURGERY PROGRESS NOTE ---
DATE: 07/19/2018 SUBJECTIVE: The patient is doing well today. No abdominal pain, nausea or vomiting. OBJECTIVE: She is afebrile. Vital signs are stable. General: She is awake, alert, oriented x3, no acute distress. GI: Soft, nontender, nondistended. IMAGING: CT of the abdomen and pelvis yesterday revealed thickening of the colon wall along the descending colon consistent with her known near obstructing mass. There was no evidence of distant metastases. ASSESSMENT AND PLAN: A 78-year-old female with near obstructing left colon mass. We are planning open left colectomy on Sunday. She will be given a bowel prep on Sunday and should remain on full liquids for now and clear liquids on Sunday. All questions were fielded by the family and answered. Dr. Berry will cover for me over the weekend. cc: Adrián Torres MD
[2018-07-20] MEDS: TYLENOL PO SCH ×3 (01:27→21:11)
[2018-07-20] MEDS: OXY IR PO PRN ×4 (01:27→14:39)
[2018-07-20 07:12] LABS: HEMATOCRIT 28.4 % (37.0-47.0); HEMOGLOBIN 8.8 g/dL (12.0-16.0); MCH 27.1 PG (27-31); MCV 87.4 FL (81-99); MPV 8.7 FL (7.4-10.4); RBC 3.25 XMIL (4.2-5.4); RDW 14.7 % (11.5-14.5); WBC 6.1 X1000 (4.8-10.8)
[2018-07-20] MEDS: PROTONIX IV SCH ×2 (10:12→21:11)
[2018-07-20] MEDS: LOVENOX SUBQ SCH (10:12)
[2018-07-20] MEDS: LASIX PO SCH (10:12)
[2018-07-20] MEDS: LIDODERM TOP SCH (10:12)
[2018-07-20] MEDS: SODIUM CHLORIDE 0.9% INJ SCH ×2 (10:12→21:11)
[2018-07-20] MEDS: BETAPACE PO SCH ×2 (10:12→21:11)
[2018-07-20] MEDS: COLACE PO SCH ×2 (10:12→21:11)
--- NOTE | 2018-07-20 11:29 | PROGRESS NOTE ---
DATE: 07/20/2018 SUBJECTIVE: Ms. Hayes is a 78-year-old white female, who has a near obstructing mass, left colon, probably at the splenic flexure. There are plans for colon resection per Dr. Torres this coming Sunday. She is on a full liquid diet at this time. She will be n.p.o. after midnight on Sunday. cc: Deanna Berry MD
[2018-07-20 15:19] LABS: IRON SATURATION 9 %; TIBC 197 ug/dL; TOTAL IRON 17 ug/dL (49-151); UNBOUND IRON 180 ug/dL (112-346)
[2018-07-20 16:13] LABS: FERRITIN 56 ng/mL (13-150)
--- NOTE | 2018-07-20 21:01 | PROGRESS NOTE ---
DATE: 07/20/2018 Interval history. No acute overnight events. The patient was lying down in the bed when I saw her. The patient's family is at bedside. The patient denies any nausea, vomiting, abdominal pain, chest pain or shortness of breath. She has been started on liquid diet today. She has not had any bloody bowel movement. We discussed about plan for possible surgery yesterday. I also discussed with them about MRI results which was order by 1 of the providers for her confusion which I had suspected was related to her dementia. VITAL SIGNS: Currently temperature of 97.4, pulse 53, blood pressure 126/55, saturating 100% on room air. PHYSICAL EXAMINATION: General: Does not appear in any acute distress. Oral cavity is moist. Air entry bilaterally equal. No wheeze, rhonchi or crackles. S1, S2 normal. Regular. Bradycardic. No murmur, rub or gallop. Abdomen: Soft, nontender mostly except left lower quadrant where she has slight tenderness. No rebound, no rigidity or guarding. No lower extremity edema. She is alert, she is oriented, able to follow all commands, answers questions appropriately, able to raise all extremities above ground level. No facial droop or ptosis. LABS: Today suggestive of hemoglobin of 8.8, platelet of 198,000. No BMP today. Microbiology no new data. Previously her stool occult blood test was positive. IMAGING: Patient had brain MRI performed yesterday which had suggested chronic microvascular ischemic changes, small infarct in right frontal and left occipital lobe which were old . ASSESSMENT AND PLAN: 1. Lower gastrointestinal bleed from colon cancer in distal to transverse colon region. Continue to monitor CBC. EGD had suggested acute gastritis, no transfusion needed at the moment. Her lower gastrointestinal bleed seems to have resolved. 2. Suspected colon cancer in transverse or descending colon region, patient likely to undergo open left-sided hemicolectomy on 22 July. Patient has been started on ertapenem prophylactically, liquid diet and she will get bowel prep on July 21. She has also been on alvimopan to avoid postoperative ileus. 3. Acute gastritis. Continue pantoprazole and sucralfate. 4. History of atrial fibrillation currently normal sinus rhythm. Continue home sotalol. Previously she was taken of Eliquis because of gastrointestinal bleed and we are holding Plavix for anticipated surgery. 5. Chronic back pain and with multiple back surgeries. Continue home oxycodone and lidocaine patch with amitriptyline. 6. Deep venous thrombosis prophylaxis, enoxaparin to be stopped on the day of surgery. 7. To avoid constipation patient is on MiraLAX and she will be started on bowel prep tomorrow. Code status: DNR level 1 as per discussion with the patient and . 8. Disposition. Patient remains inside the hospital awaiting for surgical intervention. Hematology oncology has also been consulted. Plan of care were discussed with patient, her at bedside who is a surrogate decision maker, all of their questions have been answered . cc: Elio Camilo MD MTDD
[2018-07-20] MEDS: ELAVIL PO SCH (21:10)
--- NOTE | 2018-07-21 03:27 | HEMO/ONC CONSULTATION ---
DATE: 07/19/2018 REASON FOR CONSULTATION: Colon mass. REQUESTING PHYSICIAN: Dr. Camilo. HISTORY OF PRESENT ILLNESS: Ms. Hayes is a 78-year-old, female with multiple comorbidities including vascular dementia, CAD, status post stenting of the RCA, diabetes mellitus type 2, hypertension, PVD, chronic pain, multiple TIAs, who presented to [facility] on 07/16/2018 with complaints of melena. She was recently hospitalized approximately 2 weeks ago with new diagnosis of atrial fibrillation with RVR. At that time, she was placed on Eliquis given her history of CAD with stent placement as well as multiple TIAs. She additionally was on Plavix at that time. She was admitted to the hospital for further evaluation and workup. Gastroenterology was consulted for evaluation of a possible GI bleed. The EGD on 07/17/2018 revealed mild gastritis. A colonoscopy was then recommended and performed on 07/18/2018, revealing an obstructing mass at 70 cm from the anal verge. General surgery was subsequently consulted with plans for a left hemicolectomy, likely early next week as the patient was recently taken off Plavix on 07/15/2018. Imaging including CT of the abdomen and pelvis performed did reveal no evidence of metastatic disease. We are presently awaiting pathology from colonoscopy. We have been asked to establish care. PAST MEDICAL HISTORY: 1. Recent atrial fibrillation with RVR, on Eliquis. 2. CAD, status post stent placement, previously on Plavix. 3. Type 2 diabetes mellitus. 4. PVD. 5. Nicotine dependence. 6. Hypertension. 7. Chronic pain syndrome. 8. Multiple TIAs. 9. Multiple DVTs. 10. Vascular dementia. PAST SURGICAL HISTORY: 1. Back surgery x5. 2. Shoulder surgery. 3. Right patellar fracture. 4. Hysterectomy. 5. Appendectomy. FAMILY HISTORY: Mother in 1993 with colon cancer. No other known history of blood abnormalities or cancer. SOCIAL HISTORY: She is with a supportive family. She recently stopped smoking in June. She reportedly smoked 1 to 2 packs per day for 60 years. No alcohol or illicit drug use. ALLERGIES: No known drug allergies. HOME MEDICATIONS: 1. Glucophage 500 mg p.o. b.i.d. 2. Plavix 75 mg p.o. b.i.d. 3. Elavil 100 mg p.o. at bedtime. 4. Sotalol 80 mg p.o. b.i.d. 5. Lasix 40 mg p.o. daily. 6. [place] 10 one tablet p.o. t.i.d. p.r.n. 7. Cilostazol 100 mg p.o. b.i.d. 8. Protonix 40 mg p.o. daily. REVIEW OF SYSTEMS: Review of systems includes chronic low back pain as well as new onset stomach pain over the last 3 to 4 days. The patient's family additionally reports that she has had difficulties with gait disturbance and imbalance, and has become nonambulatory over the past few days. Her confusion seems to be progressively getting worse over the past several months now. Otherwise, a 12-point review of systems reviewed and other than the aforementioned in the HPI are negative. PHYSICAL EXAMINATION: Vital Signs: Temperature 98.1 degrees, pulse 65, respirations 20, blood pressure 141/97, O2 saturation 97% on room air. General: This is a chronically ill-appearing, female in bed, in no apparent distress. She is accompanied by her and son and daughter today. Eyes: Pupils are equal, round, and reactive to light . Mouth: Oral mucosa normal. CV: Regular rate and rhythm. S1-S2. Pulmonary: Lung sounds are clear to auscultation bilaterally. Nonlabored. GI: Abdomen is soft, tender to palpation, generally nondistended. Bowel sounds present in all 4 quadrants. Musculoskeletal: No bony abnormalities. Skin: No petechiae, masses, or rash. Pale. Neurologic: Awake, alert, and oriented to person and place, although not time. Gait is not assessed. LABORATORY DATA: White blood cell count 7.90, hemoglobin 9.6, hematocrit 30.8, platelets 224,000. Sodium 137, potassium 4.2, chloride 103, CO2 25, BUN 4, creatinine 0.5, glucose 92, calcium 8.1. IMAGING: CT of the abdomen and pelvis on 07/18/2018. Impression: There is some apparent irregularity of the serosal contour and a portion of the descending colon with slightly increased enhancement in the mucosa, which appears thickened. There is some questionable pericolonic adenopathy with nodes which are not particularly enlarged but are somewhat prominent in this area with nodes measuring up to about 6 mm in diameter. There is no evidence of metastatic disease. Pathology is presently pending from 07/18/2018. ASSESSMENT AND PLAN: 1. Colon mass, highly suspicious for neoplasm. She is presently status post esophagogastroduodenoscopy and colonoscopy with pathology pending. General surgery has been consulted for evaluation with plan for a left hemicolectomy in the near future, likely early next week. We will await final pathology for further recommendations. We will check a CEA as well as a CA 19-9. We will also consider checking a CT of the chest as well as a bone scan for staging purposes. It is noted that prior to admission, the patient was on hospice and Do Not Resuscitate level 1. 2. Probable gastrointestinal bleed, likely secondary to #1, now resolved. Counts remain stable. We will monitor closely and transfuse blood products as needed. 3. Anemia, likely multifactorial. We will plan to check iron studies, TSH, B12, folate to further evaluate and replete as indicated. 4. Acute gastritis per esophagogastroduodenoscopy. Continue present management. 5. Recent history of atrial fibrillation, now in normal sinus rhythm, off of anticoagulation. Continue sotalol. 6. Worsening confusion. The patient reports that she has been increasingly confused over the past 2 to 3 months. Given the concern for colon cancer, we will go ahead and check an MRI of the brain to further evaluate and rule out metastatic disease. The above findings represent the assessment and plan of Dr. Maximiliano Valdez. Further recommendations pending clinical outcomes. Thank you for allowing us to participate in the care of this patient. We will follow closely. Dictated by PAMELA Stewart for Maximiliano Valdez MD cc: PAMELA Stewart MD
--- NOTE | 2018-07-21 05:02 | GASTROENTEROLOGY PROGRESS NOTE ---
DATE: 07/20/2018 SUBJECTIVE: The patient is resting in bed. Her family was at the bedside. I discussed the findings of colonoscopy with the patient at bedside. The patient is preparing for a colon resection on Sunday with Dr. Torres. PHYSICAL EXAMINATION: Vital Signs: Temperature of 97.4 degrees, pulse rate of 53, respiratory rate of 17, blood pressure 122/55, saturating 100% room air. General Appearance: Moderately built, moderately nourished. Lying in bed, in no acute distress. HEENT: Pale conjunctivae. No icterus. Neck: Supple. Abdomen: Soft, nontender, nondistended. No guarding or rebound. Extremities: No cyanosis, clubbing. Neurologic: She is alert and awake, and answers simple questions. LABS: Hemoglobin and hematocrit are 8.8 and 28.4, white count of 6.1, platelet count of 198,000. Her CEA is 3.7. IMPRESSION AND PLAN: 1. Lower gastrointestinal bleed secondary to left colonic mass. Biopsy revealed colonic adenocarcinoma. At this time, she is scheduled for a partial colon resection with Dr. Torres on Sunday. She is on a full liquid diet. 2. Anemia. Continue to watch for now and transfuse as needed. 3. Gastrointestinal prophylaxis with Protonix. 4. Atrial fibrillation. She is on sotalol, holding Eliquis. 5. Coronary artery disease. Her Plavix has been held. 6. Bowel regimen. She will be started on MiraLAX once daily. 7. Chronic pain. She is on oxycodone extended release. 8. Deep venous thrombosis prophylaxis with Lovenox. 9. Above plan of care was discussed with the patient and family at bedside. All questions were answered. cc: MD Jagdish Courtney MD Jason R. Seale, MD
[2018-07-21] MEDS: TYLENOL PO SCH ×3 (05:16→20:25)
[2018-07-21 07:44] LABS: AGAP 12; BUN 9 mg/dL (8-22); CALCIUM 8.1 mg/dL (8.8-10.2); CHLORIDE 101 mmol/L (98-107); COSMO 278; CREATININE 0.6 mg/dL (0.5-0.9); ESTIMATED GFR > 60; GLUCOSE 92 mg/dL (70-104); POTASSIUM 3.7 mmol/L (3.5-5.1); SODIUM 140 mmol/L (136-145); TCO2 27 mmol/L (25-35)
[2018-07-21] MEDS: LIDODERM TOP SCH (08:23)
[2018-07-21] MEDS: COLACE PO SCH ×2 (08:23→20:25)
[2018-07-21] MEDS: BETAPACE PO SCH ×2 (08:23→20:25)
[2018-07-21] MEDS: LASIX PO SCH (08:23)
[2018-07-21] MEDS: LOVENOX SUBQ SCH (08:24)
[2018-07-21] MEDS: FERROUS SULFATE PO SCH (08:31)
[2018-07-21] MEDS: OXY IR PO PRN ×2 (08:31→20:25)
[2018-07-21] MEDS: FOLIC ACID PO SCH (08:31)
[2018-07-21] MEDS ORDERED: MIRALAX PO SCH (09:00)
--- NOTE | 2018-07-21 10:46 | PROGRESS NOTE ---
DATE: 07/21/2018 INTERVAL HISTORY: Her EKG was sinus bradycardia with QTc interval of 457. The biopsy results suggest colon adenocarcinoma as per note dictated by Gastroenterology. However , the final pathology report in the computer chart is pending. SUBJECTIVE: Patient denies chest pain, shortness of breath, nausea, vomiting, abdominal pain. She has not had a bowel movement, for which I have started her on MiraLAX. I also changed her diet to clear liquid and she should hopefully be started on bowel preparation starting in the afternoon time. OBJECTIVE: Vital signs: Temperature of 97.3 degrees, pulse 52, blood pressure 120/70, saturating 98% on room air. General: Does not appear in any acute distress. HEENT: Oral cavity moist. Respiratory: Air entry bilaterally equal. No wheeze, rhonchi, or crackles. Cardiovascular: S1, S2 normal. Regular. Bradycardic. No murmur, rub, or gallop. Abdomen: Soft. Nontender except left lower quadrant where she has slight tenderness. No rebound or rigidity or guarding. Extremities: No lower extremity edema. Neurologic: She is alert. She is oriented to herself, me, and situation. Able to follow all commands and answer questions appropriately. LABS: Suggestive of normal electrolytes, normal kidney function. I will follow up with CBC tomorrow. IMAGING: New imaging data. ASSESSMENT AND PLAN: 1. Lower gastrointestinal bleed from colon cancer in descending or transverse colon region. Follow up CBC tomorrow. EGD had acute gastritis. No need for transfusion at the moment. She has not had GI bleed for more than 72 hours now. 2. Suspected colon adenocarcinoma in transverse or descending colon region. The patient likely to undergo left-sided open hemicolectomy on July 22. The patient has been started on prophylactic ertapenem, clear liquid diet, and likely bowel prep by surgical team in the afternoon time. She is also on Alvomopan to avoid postoperative ileus. 3. Acute gastritis. Continue pantoprazole and sucralfate. 4. History of atrial fibrillation. Currently in sinus bradycardia likely due to sotalol. Continue home sotalol. She is off Eliquis since June 2018. We are holding Plavix for anticipated surgery. 5. Chronic back pain with multiple back surgeries. Continue home oxycodone, lidocaine patch with amitriptyline. 6. Deep vein thrombosis prophylaxis. Enoxaparin to be held on the day of surgery. 8. Code status. DNR level 1 as per discussion with family, patient, and , who is the surrogate decision maker. 9. Disposition. Patient remains inside the hospital. 10. Iron deficiency anemia based on iron studies. Start patient on ferrous sulfate. cc: Elio Camilo MD MTDD
[2018-07-21] MEDS ORDERED: GOLYTELY PO ONE (14:19)
--- NOTE | 2018-07-21 17:53 | GASTROENTEROLOGY PROGRESS NOTE ---
DATE: 07/21/2018 SUBJECTIVE: She is resting in bed. Her present at bedside. The patient is feeling better. She is on GoLYTELY. She is preparing for surgery tomorrow. She will be made n.p.o. past midnight. She denies any rectal bleeding. OBJECTIVE: Vital signs: Temperature 97.8 degrees, pulse of 58, respiratory rate 18, blood pressure 127/64, saturating 99% on room air. General Appearance: Moderately built, well nourished, lying in bed, in no acute distress. HEENT: Pale conjunctivae. No icterus. Neck: Supple. Abdomen: Soft, nontender, nondistended. No guarding or rebound. Extremities: No cyanosis, clubbing. Neurologic: She is alert, awake, oriented x3. DIAGNOSTIC STUDIES: Hemoglobin 8.8, hematocrit 28.4, white count of 6.1, platelet count of 198,000. Sodium 140, potassium 3.7, chloride 101, bicarbonate 27, anion gap 12, BUN of 9, creatinine 1.6, glucose of 92, calcium is 8.1. Percent saturation iron is 9%, she is iron deficient. Her CA19-9 is 11 which is normal. Her CEA was 3.8, which is high. Folate of 5.7, B12 of 267. Stool for occult blood was positive. IMPRESSION AND PLAN: 1. Lower gastrointestinal (GI) bleeding from a colon lesion in the descending colon/splenic flexure, which was near obstructing. The colonoscope could not pass through the area. She is scheduled for OR tomorrow with Dr. Torres. We will follow the postoperative recommendations. 2. Anemia. Continue to watch for now. Transfuse as needed. 3. Reflux disease. She will continue Protonix and Carafate. 4. Atrial fibrillation. She is on sotalol. Her Eliquis has been held for the surgery. 5. History of coronary artery disease. She has been on Plavix which was stopped for surgery tomorrow. 6. Chronic back pain with multiple back surgeries. She is on lidocaine patch, amitriptyline, and oxycodone. 7. Deep vein thrombosis (DVT) prophylaxis. On Lovenox. The above plan was discussed with the patient and family, and all questions answered. Please call us with any questions. cc: MD Jagdish Courtney, MD
[2018-07-21] MEDS: NS 1,000 ML IV SCH (18:03)
[2018-07-21] MEDS: ELAVIL PO SCH (20:24)
[2018-07-22] MEDS: TYLENOL PO SCH ×3 (05:48→20:24)
[2018-07-22] MEDS ORDERED: ENTEREG PO ONE (06:00)
[2018-07-22 07:07] LABS: BASO# 0.02 X1000 (0.0-0.2); BASO% 0.3 % (0.0-0.8); EOS# 0.22 X1000 (0.0-0.7); HEMATOCRIT 32.1 % (37.0-47.0); IMM GRAN# 0.02 X1000 (0.0-0.04); IMM GRAN% 0.3 % (0.0-0.5); LYMPH# 2.85 X1000 (1.2-3.4); LYMPH% 38.5 % (20.5-51.1); MCH 26.7 PG (27-31); MCHC 31.2 g/dL (33-37); MCV 85.8 FL (81-99); MONO# 0.53 X1000 (0.11-0.59); MONO% 7.2 % (1.7-9.3); MPV 9.2 FL (7.4-10.4); NEUT# 3.76 X1000 (1.4-6.5); NEUT% 50.7 % (42.2-75.2); PLT 250 X1000 (130-400); RBC 3.74 XMIL (4.2-5.4); RDW 14.8 % (11.5-14.5)
--- NOTE | 2018-07-22 08:08 | EKG Report ---
Test Performed on : 07/20/2018 1:38:13 PM Test Reason : Bradycardia. Assess for QTc Blood Pressure : / mmHG Vent. Rate : 053 BPM Atrial Rate : 053 BPM P-R Int : 170 ms QRS Dur : 104 ms QT Int : 486 ms P-R-T Axes : 088 047 045 degrees QTc Int : 456 ms Sinus bradycardia. Otherwise normal ECG When compared with ECG of 24-JUN-2018 12:35, (Unconfirmed) Vent. rate has decreased BY 34 BPM T wave inversion no longer evident in Lateral leads Confirmed by Dee ORTIZ, Wm Carter ([id number]) on 07/22/2018 8:53:14 AM
[2018-07-22] MEDS ORDERED: QUELICIN (DOSE) ONE (08:30)
[2018-07-22] MEDS ORDERED: XYLOCAINE-MPF 2% ONE (08:30)
[2018-07-22] MEDS ORDERED: DIPRIVAN 1% ONE (08:30)
[2018-07-22 09:18] LABS: URINE SOURCE CATH
[2018-07-22 09:21] LABS: BILIRUBIN URINE NEGATIVE (NEGATIVE); BLOOD URINE NEGATIVE (NEGATIVE); COLOR YELLOW; GLUCOSE URINE NEGATIVE (NEGATIVE); KETONE URINE NEGATIVE (NEGATIVE); LEUKOCYTES URINE NEGATIVE (NEGATIVE); NITRITE URINE NEGATIVE (NEGATIVE); PROTEIN URINE NEGATIVE (NEGATIVE); SP GRAVITY URINE 1.004; TURBIDITY URINE CLEAR (CLEAR); UROBILINOGEN URINE NORMAL (NORMAL)
[2018-07-22 09:22] LABS: UR EPITHELIAL CELLS <10 /HPF (<10); URINE BACTERIA NEGATIVE /HPF; URINE RBC <10 /HPF (<10); URINE WBC <10 /HPF (<10)
[2018-07-22] MEDS ORDERED: ZOFRAN ONE (09:26)
[2018-07-22] MEDS ORDERED: DECADRON ONE (09:26)
[2018-07-22] MEDS ORDERED: ROBINUL ONE ×2 (09:26→09:28)
[2018-07-22] MEDS ORDERED: NORCURON ONE (09:27)
[2018-07-22] MEDS ORDERED: SODIUM CHLORIDE 0.9% 10 ML ONE (09:27)
[2018-07-22] MEDS ORDERED: EPHEDRINE ONE (09:28)
[2018-07-22] MEDS ORDERED: FENTANYL ONE (09:51)
[2018-07-22] MEDS ORDERED: INVANZ 1 GM/NS 1 GM/50 ML IVPB IV ONE (10:00)
[2018-07-22] MEDS ORDERED: NEOSTIGMINE ONE (10:38)
--- NOTE | 2018-07-22 10:46 | PROGRESS NOTE ---
DATE: 07/22/2018 INTERVAL HISTORY: No acute overnight events. The patient was started on bowel prep following which she has had multiple bowel movements. SUBJECTIVE: Patient is appearing anxious because of surgery. Does not appear in any acute distress. Multiple family members are at bedside. VITAL SIGNS: Currently suggest afebrile with a temperature of 97.8 degrees, pulse 58 per minute, respiratory rate 14, blood pressure 140/60, saturating 100% on room air. PHYSICAL EXAMINATION: General: Does not appear in any acute distress. Appears anxious. HEENT: Oral cavity dry. Respiratory: Air entry bilaterally equal. No wheeze, rhonchi, or crackles. Cardiovascular: S1, S2 normal. Bradycardic with heart rate in the 50s. No murmur, rub, or gallop. Abdomen: Soft. Mild tenderness in the left lower quadrant. No rebound or rigidity or guarding. Her tenderness is likely because of colonic mass. Extremities: No lower extremity edema. Neurologic: Alert. Oriented to time, place, and person. Able to follow commands. On previous neurological examination, she had no focal abnormalities on July 21. LABS: Suggestive of no leukocytosis. Acceptable range of hemoglobin, hematocrit, and platelet count. ASSESSMENT AND PLAN: 1. Lower gastrointestinal bleed from colon cancer in descending or transverse colon region. Esophagogastroduodenoscopy suggested acute gastritis. No active bleeding at the moment. 2. Suspected colon cancer in transverse or descending colon, which was obstructing. The patient is going for open left hemicolectomy today by the surgical team. Continue intravenous ertapenem and alvimopan prophylactically, as was started by surgical team. Hematology is also on board in the future if she needs medical management. 3. Acute gastritis. Continue pantoprazole and sucralfate. 4. History of atrial fibrillation and coronary artery disease, currently in sinus bradycardia. Continue sotalol. She has been off Eliquis since June 2018. Continue to hold Plavix considering planned surgery today. 5. Chronic back pain with multiple back surgeries. Continue home oxycodone and lidocaine patch with amitriptyline. 6. Episodes of intermittent confusion outpatient since the last few months with MRI suggestive of multiple microvascular ischemic changes including old infarct, disease likely related to vascular dementia. The patient should follow up with outpatient provider for formal diagnosis. 7. Deep venous thrombosis prophylaxis. Enoxaparin to be held on the day of surgery. 8. Code status. Do Not Resuscitate level 1. 9. Iron deficiency anemia. Continue iron sulfate and folic acid. 10. Disposition. The patient remains inside the hospital for planned surgery. We will follow up post surgery recommendations by surgical team. Plan of care was discussed with her, her who is the surrogate decision maker, and other family members. All of their questions have been answered. cc: Elio Camilo MD
[2018-07-22] MEDS: MORPHINE ONE ×7 (11:09→12:07)
--- NOTE | 2018-07-22 12:02 | OPERATIVE NOTE ---
PROCEDURE DATE: 07/22/2018 PREOPERATIVE DIAGNOSIS: Left colon mass. POSTOPERATIVE DIAGNOSIS: Left colon mass. PROCEDURE PERFORMED: Open left colectomy. SURGEON: Dr. Adrián Torres. LENS SHAPER GRINDER: Jared Mensah MD. ANESTHESIA: General. ESTIMATED BLOOD LOSS: 50 mL. COMPLICATIONS: None apparent. SPECIMENS: Left colon. FINDINGS: Large mass of the descending colon was present. There was no obvious distant metastases of the peritoneal cavity or liver. TECHNIQUE: The patient was brought to the operating room and placed supine on the table. General anesthesia was induced. A Louis catheter was placed. She was prepped and draped in the usual sterile fashion. A generous midline incision was made from the epigastrium to the suprapubic area with a 10 blade and carried down through the subcutaneous fat and fascia with cautery. The posterior linea alba was opened between hemostats with scissors. The peritoneal cavity was thus safely entered. I extended the linea alba incision lengthwise throughout our incision with cautery, protecting the underlying bowel. I proceeded to explore the abdomen. The omentum, peritoneal surfaces, and liver were free of any obvious distant metastases. The tattooed area was easily identified in the descending colon and there was a corresponding large mass of the large bowel present. I then proceeded to mobilize the sigmoid colon by incising the lateral peritoneal attachments with cautery and sweeping it off the retroperitoneum from a lateral to medial direction. I identified the ureter at the pelvic brim and safely stayed away from it throughout our dissection. I continued coming up the white line of Toldt of the descending colon with cautery and mobilized the descending colon off the retroperitoneum bluntly and with cautery until we got to the mass. I continued around the lateral aspect of the peritoneal attachments of the descending colon around the mass. I then created a window into the lesser sac of the gastrocolic ligament near the distal half of the transverse colon. I divided the transverse colon here to the left of the middle colic artery with a linear blue stapler. I came around the omental attachments to the spleen with the LigaSure device. I then transected the sigmoid-rectal junction with the linear stapler. I proceeded to divide the sigmoidal branches proximally with the LigaSure device. We approached the left colic artery, which was divided with the LigaSure and then oversewn with a 2-0 silk stick tie on the proximal stump. I then completed coming around the hepatic flexure with the LigaSure device until the left colon was completely freed of all vascular attachments. This also involved complete mobilization of the hepatic flexure. The specimen was passed off the field. I checked for any bleeding and there was no bleeding. I then brought our transverse colon down next to the rectal stump and it reached without any tension. We proceeded to perform a handsewn, two-layered, end rectum to side transverse colon anastomosis. A posterior row of seromuscular 3-0 silk sutures was placed to approximate the posterior aspect of the rectum to the taenia libera of the transverse colon. I then excised the staple line of the rectum and made a colotomy along the taenia libera ray of the transverse colon. I then placed a running 3-0 Vicryl inner layer, converting from a running locking stitch posteriorly to a baseball stitch anteriorly. I then oversewed the anterior suture line with another row of 3-0 silk interrupted seromuscular Lembert type sutures. I should point out that Dr. Mensah was present during the hauser portions of the case including the division and ligation of left colic artery, finishing the transection of the left colon, and then assisting with the anastomosis and the closure of the abdomen. Once the anastomosis was complete, I checked for patency and it felt patent. There were no signs of any leakage or bleeding from the suture line. There appeared to be good color and blood flow to our anastomosis. I then closed the mesenteric defect with interrupted 3-0 silk suture. The bowel was placed back in its anatomic position. I irrigated along the left colic gutter and around the spleen, and suctioned this out. There were no signs of any bleeding. All laparotomy pads were removed from the abdomen, and counted and deemed to be correct. I then closed the fascia with a running #1 looped Maxon suture in two directions. The skin was closed with skin clips. A sterile dressing was applied. There were no apparent complications. cc: Adrián Torres MD
[2018-07-22] MEDS: NS 1,000 ML IV SCH (12:47)
[2018-07-22] MEDS: LIDODERM TOP SCH (14:54)
[2018-07-22] MEDS: DILAUDID IV PRN ×3 (17:17→23:31)
[2018-07-22] MEDS: PROTONIX PO SCH (18:37)
[2018-07-22] MEDS: FOLIC ACID PO SCH (18:39)
[2018-07-22] MEDS: LASIX PO SCH (18:39)
[2018-07-22] MEDS: FERROUS SULFATE PO SCH (18:40)
[2018-07-22] MEDS: COLACE PO SCH ×2 (18:41→20:25)
[2018-07-22] MEDS: BETAPACE PO SCH ×2 (18:41→20:25)
[2018-07-22] MEDS: ZOFRAN IV PRN ×2 (20:02→23:31)
[2018-07-22] MEDS: D5 LR 1,000 ML IV SCH (20:03)
[2018-07-22] MEDS: ELAVIL PO SCH (20:25)
[2018-07-22] MEDS: PERIDEX MT SCH (20:30)
[2018-07-22] MEDS: OXY IR PO PRN (21:54)
[2018-07-23] MEDS: DILAUDID IV PRN ×6 (02:45→20:59)
[2018-07-23] MEDS: ZOFRAN IV PRN ×2 (05:34→09:06)
[2018-07-23] MEDS: TYLENOL PO SCH ×3 (05:36→21:00)
[2018-07-23] MEDS: PROTONIX PO SCH (06:12)
[2018-07-23 07:36] LABS: HEMATOCRIT 34.7 % (37.0-47.0); HEMOGLOBIN 10.7 g/dL (12.0-16.0); MCH 26.8 PG (27-31); MCHC 30.8 g/dL (33-37); RBC 3.99 XMIL (4.2-5.4); RDW 15.2 % (11.5-14.5); WBC 10.46 X1000 (4.8-10.8)
[2018-07-23] MEDS: FERROUS SULFATE PO SCH (08:37)
[2018-07-23] MEDS: COLACE PO SCH ×2 (08:37→21:00)
[2018-07-23] MEDS: FOLIC ACID PO SCH (08:37)
[2018-07-23] MEDS: BETAPACE PO SCH ×2 (08:37→21:00)
[2018-07-23] MEDS: NS 1,000 ML IV SCH (08:38)
[2018-07-23] MEDS: PERIDEX MT SCH ×2 (08:38→21:01)
[2018-07-23] MEDS: LIDODERM TOP SCH (08:38)
[2018-07-23 08:45] LABS: AGAP 9; BUN 11 mg/dL (8-22); CALCIUM 8.1 mg/dL (8.8-10.2); CHLORIDE 105 mmol/L (98-107); COSMO 283; CREATININE 0.6 mg/dL (0.5-0.9); ESTIMATED GFR > 60; GLUCOSE 139 mg/dL (70-104); POTASSIUM 3.7 mmol/L (3.5-5.1); SODIUM 141 mmol/L (136-145); TCO2 27 mmol/L (25-35)
--- NOTE | 2018-07-23 08:53 | GENERAL SURGERY PROGRESS NOTE ---
DATE: 07/23/2018 SUBJECTIVE: The patient complains of some abdominal pain but is doing okay overnight. No nausea or vomiting. She has not passed gas yet. She is sipping on liquids. OBJECTIVE: Vital Signs: She is afebrile. Vital signs are stable. General: She is alert and oriented x4. No acute distress. CV: Regular rate and rhythm. Respiratory: Bilateral breath sounds. No work of breathing. GI: Soft, nondistended. Appropriately tender. Incision is clean, dry, and intact. Laboratory: Her CBC is reviewed and unremarkable. The metabolic profile is pending. ASSESSMENT/PLAN: A 78-year-old female postoperative day 1, open left colectomy for near obstructing colon cancer. We will mobilize her today. I have encouraged continued liquid diet for now. We are awaiting return of bowel function. We will keep her Louis catheter one more day until she is more mobile. cc: Adrián Torres MD
[2018-07-23] MEDS ORDERED: ENTEREG PO SCH (09:00)
--- NOTE | 2018-07-23 09:59 | GASTROENTEROLOGY PROGRESS NOTE ---
DATE: 07/23/2018 SUBJECTIVE: Patient underwent open left hemicolectomy yesterday without complications. No acute overnight events. Afebrile. Patient reports pain at incision. No N/V/F, CP, SOB, flatus. OBJECTIVE: Vital Signs: 98.1, heart rate 84, blood pressure 149/75, 96% on room air GEN: awake, alert, NAD HEENT: anicteric, MMM NECK: no JVD, LAD CV: RRR, no mrg PULM: CTAB anteriorly, no wheezing ABD: midline incision with dressing c/d/i, ND, hypoactive bowel sounds, mild TTP throughout EXT: no cce NEURO: nonfocal LABS: WBC 10.4 Hgb 10.7 Plts 262K Surgical pathology pending A/P: Ms. Deann Hayes is a 78 year old woman with HTN, diabetes, CAD s/p stent ( 12 years ago) on plavix, multiple DVTs, afib on Eliquis admitted with hematochezia s/p EGD and colonoscopy. EGD showed gastritis. Colonoscopy revealed partially obstructing CRC POD#1 from left hemicolectomy. Hgb has remained stable. Surgical pathology pending. #CRC: modeartely-differentiated adenocarcinoma; elevated CEA 3.8; awaiting final surgical pathology #LGIB: resolved: from above #Anemia: hgb 10.7: stable #Afib: on sotalol; defer timing o restarting Eliquis to surgical and primary teams #Chronic pain: on analgesics #Gastritis: on PPI PO once daily #GI prophylaxis: on bowel regimen Will sign off. Please call with questions or concerns. [facility]
[2018-07-23] MEDS: D5 LR 1,000 ML IV SCH (11:05)
[2018-07-23] MEDS: OXY IR PO PRN (14:09)
[2018-07-23] MEDS: VENOFER 300 MG in NS 250 ML IV SCH (14:51)
--- NOTE | 2018-07-23 17:16 | PROGRESS NOTE ---
DATE: 07/23/2018 INTERVAL HISTORY: The patient underwent open left hemicolectomy on July 22, which had detected a large descending colon near obstructing mass. The patient tolerated the procedure well. There was no obvious distant metastasis of the peritoneal cavity or liver. SUBJECTIVE: The patient is complaining of abdominal pain. She is a little drowsy. The patient's family at bedside and states that she has not eaten anything except taking by mouth. I appreciated surgery's recommendation and started on a clear liquid diet currently. PHYSICAL EXAMINATION: Vital Signs: Temperature of 98.1, pulse of 85 per minute, respiratory rate of 16 per minute, blood pressure 149/75, saturating 96% on room air. General: Does not appear in any acute distress, slightly drowsy. HEENT: Oral cavity is dry. Lungs: Air entry bilaterally equal. No wheeze or rhonchi. She has bilateral infrascapular crackles. Cardiac: S1 and S2 normal, bradycardic. No murmur, rub, or gallop. Abdomen: Soft. Midline scar of laparotomy dressed, not soaked. Generalized abdominal tenderness. Bowel sounds not heard. Extremities: No lower extremity edema. Neurologic: She is alert, follows simple commands, however, appears forgetful. LABORATORY DATA: No leukocytosis. Stable hemoglobin, hematocrit, and platelet count. Normal kidney function. Her hemoglobin yesterday was 10 and today is 10.7. She is currently receiving her blood transfusion. ASSESSMENT AND PLAN: 1. Lower gastrointestinal bleed from descending colon near obstructing colonic mass. Esophagogastroduodenoscopy had only detected acute gastritis. No active bleeding at the moment. The patient has been receiving blood transfusion at the moment, likely related to intraoperative blood loss. 2. Descending colon near obstructing colon mass, status post open left hemicolectomy on July 22, two days post surgical day one. Continue the patient on clear liquid diet and ambulation as tolerated. Continue pain management and intravenous hydromorphone and oral oxycodone as needed. 3. Acute gastritis. Continue pantoprazole and sucralfate. 4. History of atrial fibrillation, coronary artery disease, with current sinus bradycardia. Continue home sotalol. She has been off Eliquis since June 2018 because of gastrointestinal bleed. I will add back Plavix after 24 to 48 hours once surgery clears her. 5. Chronic back pain with multiple back surgeries. Pain management as mentioned above. Continue lidocaine patch and home amitriptyline. 6. Episodes of intermittent confusion since last few months with current MRI suggestive of multiple microvascular ischemic changes including old infarct, likely in the setting of vascular dementia. The patient would need outpatient provider for formal diagnosis and followup. 7. Deep vein thrombosis prophylaxis, enoxaparin. 8. Code status is Do Not Resuscitate level 1. 9. Iron deficiency anemia: Continue iron sulfate and folic acid. 10. Disposition. The patient remains inside the hospital as we monitor her postoperative course. Plan of care was discussed with the patient, her and daughter at bedside. All of their questions have been answered. cc: Elio Camilo MD
[2018-07-23] MEDS: ELAVIL PO SCH (21:00)
[2018-07-24] MEDS: D5 LR 1,000 ML IV SCH ×4 (00:56→21:58)
[2018-07-24] MEDS: DILAUDID IV PRN ×3 (01:47→21:41)
[2018-07-24] MEDS: ZOFRAN IV PRN ×2 (01:47→08:29)
[2018-07-24] MEDS: TYLENOL PO SCH ×4 (04:57→21:41)
[2018-07-24] MEDS: PROTONIX PO SCH (06:35)
[2018-07-24] MEDS: VENOFER 300 MG in NS 250 ML IV SCH (08:29)
[2018-07-24] MEDS: LIDODERM TOP SCH (08:30)
[2018-07-24] MEDS: LOVENOX SUBQ SCH (08:36)
[2018-07-24] MEDS: FERROUS SULFATE PO SCH (09:42)
[2018-07-24] MEDS: BETAPACE PO SCH ×2 (09:42→21:41)
[2018-07-24] MEDS: COLACE PO SCH ×2 (09:42→21:41)
[2018-07-24] MEDS: FOLIC ACID PO SCH (09:43)
[2018-07-24] MEDS: PERIDEX MT SCH ×2 (09:43→21:41)
--- NOTE | 2018-07-24 13:47 | GENERAL SURGERY PROGRESS NOTE ---
DATE: 07/24/2018 SUBJECTIVE: The patient had a small episode of emesis overnight. She has not passed any gas yet. She is sipping liquids here and there. She is not moving much. She has sat up on the side of the bed, but has not been out of bed yet. OBJECTIVE: She is afebrile. Vital signs are stable.General: She is awake and alert, oriented x3, but does seem somewhat confused at times. Cardiovascular: Regular rate and rhythm. Respiratory: No work of breathing. Gastrointestinal: Soft, nondistended, appropriately tender. Incisional dressing clean and dry. She does have good bowel sounds. LABORATORY: CBC and metabolic profile reviewed and unremarkable. ASSESSMENT AND PLAN: A 78-year-old female, postoperative day 2, open left colectomy. I have encouraged more ambulation. She will stay on a liquid diet for now until better bowel function returns. Hopefully, we can remove her Louis catheter tomorrow. We are awaiting pathology results. cc: Adrián Torres MD
--- NOTE | 2018-07-24 18:37 | PROGRESS NOTE ---
DATE: 07/24/2018 INTERVAL HISTORY: Patient today was able to come out of bed and stand up. However, she was too shaky and had to go back to bed. She has not had a bowel movement. She ate a little bit of liquid for today. However, she does not like food that much. The patient's family is at bedside. Daughter on phone mentioned that the staring spells the patient has been having are increasing in frequency after surgery. I explained to them that she does have vascular dementia, and her confusion spell or staring spell are the result of that, and there might also be a component of post related to hospital acquired delirium. The patient herself complains of slight abdominal pain, but does not appear in any acute distress. VITALS: Temperature of 97.4 degrees, pulse 77, respiratory rate 25 per minute, blood pressure 160/80, and saturating 98% on room air. PHYSICAL EXAMINATION: General: She does not appear in any acute distress. Oral cavity is dry. Lungs: Air entry bilaterally equal. No wheeze, rhonchi, or crackles except bilateral infrascapular region. S1 and S2 normal. No murmur, rub or gallop. Abdomen: Soft. Midline scar of laparotomy dressed, and not soaked, generalized abdominal tenderness. Hypoactive bowel sounds. Extremities: No lower extremity edema. Neurologic: She is unable to answer simple questions. She does have some hearing impairment. She has some memory lapses where she could not remember how much she ate at nighttime, and the family members had to help her answer those questions. LABORATORY: Suggestive of stable hemoglobin, hematocrit, and platelet count. Normal electrolytes and normal kidney. Pathology report is of colonic masses pending. ASSESSMENT AND PLAN: 1. Lower GI bleed from descending colon due to near obstructing colonic mass, lower GI bleed has now resolved. EGD had acute gastritis. No active bleeding at the moment. 2. Descending colon near obstructing colon mass, likely colon carcinoma, pending final pathology report, status post left hemicolectomy on 07/22. Today is postoperative day 2. Continue patient on clear liquid diet and ambulation as tolerated. Continue pain management with intravenous hydromorphone and oral oxycodone as needed. Plan is to remove Louis catheter on 07/25 as patient becomes more ambulatory. 3. Acute gastritis. Continue pantoprazole and sucralfate. 4. History of atrial fibrillation, coronary artery disease. Continue home sotalol. She has been off Eliquis since June of 2018 after GI bleed. Since June, she has only been on Plavix. I appreciate surgery recommendation about resuming her Plavix. 5. Chronic back pain with multiple back surgeries. Pain management as mentioned above. Continue lidocaine patch and home amitriptyline. 6. History of intermittent confusion since last few months with multiple MRIs over the last 2 months showing multiple microvascular ischemic changes including old infarct bilaterally. This is likely in the setting of vascular dementia. The patient would need outpatient provider for formal diagnosis and follow-up. Her current staring spells could also be in part due to post operative hypoactive delirium on top of her dementia. 7. DVT prophylaxis. Enoxaparin. 8. Iron deficiency anemia. Continue iron sulfate and folic acid. She has received intravenous iron postoperatively. 9. Her code status is DNR level 1. 10. Disposition: The final pathology report is awaiting. Based on that, oncology would plan further staging and therapy in the future. Depending on patient's ambulation , she would be a good candidate for rehab versus she may go back to hospice where she is coming from. The palliative care has already been on board. Plan of care today was discussed with the patient and her . All of their questions have been answered. cc: Elio Camilo MD MTDD
[2018-07-24] MEDS: ELAVIL PO SCH (21:41)
[2018-07-25] MEDS: D5 LR 1,000 ML IV SCH (02:49)
[2018-07-25] MEDS: TYLENOL PO SCH ×3 (05:13→23:25)
[2018-07-25] MEDS: PROTONIX PO SCH (06:28)
[2018-07-25] MEDS: DILAUDID IV PRN ×2 (06:37→10:08)
[2018-07-25] MEDS ORDERED: SALINE LOCK IV FLUID XX ONE (08:21)
[2018-07-25 08:29] LABS: AGAP 8; BUN 5 mg/dL (8-22); CALCIUM 8.6 mg/dL (8.8-10.2); CHLORIDE 105 mmol/L (98-107); COSMO 276; CREATININE 0.5 mg/dL (0.5-0.9); ESTIMATED GFR > 60; GLUCOSE 113 mg/dL (70-104); POTASSIUM 3.3 mmol/L (3.5-5.1); SODIUM 139 mmol/L (136-145); TCO2 26 mmol/L (25-35)
--- NOTE | 2018-07-25 08:42 | GENERAL SURGERY PROGRESS NOTE ---
DATE: 07/25/2018 SUBJECTIVE: The patient is feeling better. She denies nausea or vomiting overnight. She reports positive flatus. OBJECTIVE: VITAL SIGNS: She is afebrile. Vital signs are stable. GENERAL: She is awake and alert, oriented x3. No acute distress. GI: Soft, nondistended. Minimal tenderness. Incisional dressing clean and dry. She does have bowel sounds. LABORATORY: None today. ASSESSMENT AND PLAN: 78-year-old female postop day 3 open left colectomy. She seems to be improving. We will advance her to a GI soft diet and convert her fluids to saline lock. I have encouraged ambulation today and we need to get the Louis catheter out today if she is more mobile. cc: Adrián Torres MD
[2018-07-25] MEDS: FOLIC ACID PO SCH (10:01)
[2018-07-25] MEDS: BETAPACE PO SCH ×2 (10:01→20:36)
[2018-07-25] MEDS: COLACE PO SCH ×2 (10:01→20:36)
[2018-07-25] MEDS: FERROUS SULFATE PO SCH (10:01)
[2018-07-25] MEDS: LOVENOX SUBQ SCH (10:08)
[2018-07-25] MEDS: LIDODERM TOP SCH (10:09)
[2018-07-25] MEDS: PERIDEX MT SCH ×2 (10:09→20:36)
--- NOTE | 2018-07-25 11:59 | GASTROENTEROLOGY PROGRESS NOTE ---
DATE: 07/25/2018 SUBJECTIVE: Resting in bed. Her son was present at bedside. The patient is feeling better. She is trying to eat her breakfast. She denies any fevers, rigors, or chills. She is sore in the abdomen from recent surgery. OBJECTIVE: Vitals: Temperature 97.8 degrees, pulse rate 69, respiratory rate 16, blood pressure 150/67, saturating 100% on room air. General Appearance: Moderately built, well nourished, lying in bed, in no acute distress. HEENT: Mild pallor. No icterus. Neck: Supple. Abdomen: Midline surgical dressing noted. Mild discomfort in the abdomen. No rebound. Her last bowel movement was on 07/21/2018. Extremities: No cyanosis or clubbing. Neurologic : She is awake, alert. Answers questions. LABORATORY DATA: Sodium 139, potassium 3.3, chloride 105, bicarbonate 26, anion gap of 8, BUN of 5, creatinine 0.5, glucose 113, calcium 8.6. IMPRESSION AND PLAN: 1. Postoperative day 3 for left colectomy for colon cancer. Dr. Torres is following. She has been advanced to GI soft diet. She is passing flatus. 2. Anemia. Continue to watch for now. Transfuse as needed. 3. Gastrointestinal (GI) prophylaxis. PPIs. 4. Bowel regimen with Colace 100 mg p.o. b.i.d. 5. Deep vein thrombosis (DVT) prophylaxis with Lovenox. 6. Pain control with IV Dilaudid and oxycodone IR. 7. We may give her a dose of Dulcolax if okay with the Surgery team. We will discuss with them. The above plan of care was discussed with the patient and the family at bedside , and all questions were answered. Please call us with any further questions. cc: MD Ardián aPez MD Manish Arora, MD MTDD
--- NOTE | 2018-07-25 18:53 | PROGRESS NOTE ---
DATE: 07/25/2018 SUBJECTIVE: Patient has no major complaints. She seems to be doing okay. She does not speak very much. Her really does most of her communication. She is looks around, but I am not completely sure that this is not her baseline. Looking at Dr. Camilo's notes, she has these staring episodes, which her family feels are completely new perhaps, but I am not sure if that is legitimate in the sense of I think she does have these issues. She has had numerous scans which have not revealed any acute neurological event. OBJECTIVE: Vital signs: Blood pressure 137/63, heart rate 59, respiratory rate 16, temperature 97.8 degrees, 96% on 2 L. Cardiovascular: Regular rate and rhythm. Pulmonary: Bilateral breath sounds. Clear to auscultation. Gastrointestinal: Soft, nontender, nondistended. Bowel sounds were positive. LABORATORY DATA: Potassium 3.3. Rest of the labs look okay. PROBLEM LIST: 1. Lower gastrointestinal (GI) bleed related to colonic adenocarcinoma status post resection. Hemoglobin and hematocrit are currently stable. 2. Colon cancer. Pathology confirms T3 colon cancer, no invasion of the nodes, no known metastases. Oncology will evaluate for treatment options, chemotherapy, although it sounds like the family is planning to go home with hospice, although I am not sure exactly if they understand that will preclude chemotherapy. That is a little bit unclear at this point. 3. Acute gastritis. Continue PPI. 4. History of atrial fibrillation that appears to be stable. She has been on Plavix and sotalol. I think currently she is on Lovenox and sotalol. 5. Disposition. She is weak. I do not think she has been eating very well, but the family wants her to go home with hospice, , namely, so we will follow him accordingly. 6. Encephalopathy. I think she is pretty close to baseline, and I would suggest that this is likely related to vascular dementia and she will have good days and bad days associated with that. cc: Dominick Herman MD
[2018-07-25] MEDS: ELAVIL PO SCH (20:36)
[2018-07-25] MEDS: DULCOLAX PR SCH (20:36)
[2018-07-26] MEDS: TYLENOL PO SCH ×3 (03:39→21:03)
[2018-07-26] MEDS: PROTONIX PO SCH (06:25)
[2018-07-26 08:06] LABS: BASO# 0.02 X1000 (0.0-0.2); BASO% 0.2 % (0.0-0.8); EOS# 0.24 X1000 (0.0-0.7); EOS% 2.8 % (0.0-10.0); HEMATOCRIT 32.3 % (37.0-47.0); HEMOGLOBIN 9.8 g/dL (12.0-16.0); IMM GRAN# 0.06 X1000 (0.0-0.04); IMM GRAN% 0.7 % (0.0-0.5); LYMPH# 2.84 X1000 (1.2-3.4); LYMPH% 33.3 % (20.5-51.1); MCH 26.3 PG (27-31); MCHC 30.3 g/dL (33-37); MCV 86.8 FL (81-99); MONO# 0.81 X1000 (0.11-0.59); MONO% 9.5 % (1.7-9.3); MPV 9.5 FL (7.4-10.4); NEUT# 4.56 X1000 (1.4-6.5); NEUT% 53.5 % (42.2-75.2); PLT 256 X1000 (130-400); RBC 3.72 XMIL (4.2-5.4); RDW 15.2 % (11.5-14.5); WBC 8.53 X1000 (4.8-10.8)
[2018-07-26 08:30] LABS: AGAP 10; BUN 6 mg/dL (8-22); CALCIUM 8.5 mg/dL (8.8-10.2); CHLORIDE 108 mmol/L (98-107); COSMO 280; CREATININE 0.4 mg/dL (0.5-0.9); ESTIMATED GFR > 60; GLUCOSE 93 mg/dL (70-104); POTASSIUM 3.4 mmol/L (3.5-5.1); SODIUM 142 mmol/L (136-145); TCO2 24 mmol/L (25-35)
[2018-07-26] MEDS ORDERED: KLOR-CON PO ONE (09:20)
--- NOTE | 2018-07-26 09:43 | GENERAL SURGERY PROGRESS NOTE ---
DATE: 07/26/2018 SUBJECTIVE: The patient is doing well. She has had a bowel movement. She is tolerating liquids. However, she does say that her solid food got stuck in her throat, and she choked. This is a new complaint for her. She did walk some yesterday. OBJECTIVE: Vital signs: She is afebrile. Vital signs are stable. General: She is awake, alert, oriented x3 in no acute distress. Respiratory: No work of breathing. GI: Soft, nondistended, nontender. Incision clean, dry, and intact. Good bowel sounds. PATHOLOGY: She has a T3 lesion with negative margins and negative lymph nodes. This is stage II cancer. ASSESSMENT AND PLAN: A 78-year-old female postoperative day 4 open left hemicolectomy. This is stage II colon cancer. She is making progress. We will get a speech therapy evaluation for her swallowing dysfunction. We will discontinue the Louis catheter today, and she can be discharged home per the primary care team planning. cc: Adrián Torres MD
[2018-07-26] MEDS: PERIDEX MT SCH ×2 (09:45→21:03)
[2018-07-26] MEDS: COLACE PO SCH ×2 (09:45→21:03)
[2018-07-26] MEDS: FERROUS SULFATE PO SCH (09:45)
[2018-07-26] MEDS: LOVENOX SUBQ SCH (09:45)
[2018-07-26] MEDS: BETAPACE PO SCH ×2 (09:45→21:03)
[2018-07-26] MEDS: LIDODERM TOP SCH (09:45)
[2018-07-26] MEDS: FOLIC ACID PO SCH (09:45)
--- NOTE | 2018-07-26 13:40 | Diag Imaging Result Doc PS360 ---
EXAM: BA SWALLOW W/VIDEO SPEECH THER INDICATION: Difficulty eating TECHNIQUE: COMPARISON: None. FINDINGS: There is no evidence of aspiration or significant airway penetration with upon swallowing the thin liquid or the pudding consistency bolus. There is no evidence of cricopharyngeus spasm/hypertrophy. Bolus propagation through the oropharynx and upper esophagus is essentially unremarkable. Limited views of the lower esophagus appear normal. IMPRESSION: Unremarkable modified barium swallow. Please see speech pathology report for full details. Electronically signed by Zane Esparza 07/26/2018 1:38 PM
[2018-07-26] MEDS: DILAUDID IV PRN ×2 (16:43→21:03)
--- NOTE | 2018-07-26 17:57 | PROGRESS NOTE ---
DATE: 07/26/2018 SUBJECTIVE: The patient has no major complaints. OBJECTIVE: Vital Signs: Blood pressure is 157/66, heart rate 66, respiratory rate of 20, temperature 97.5. Cardiovascular: Regular rate and rhythm. Pulmonary: Bilateral breath sounds. Clear to auscultation. GI: Soft, nontender, nondistended. Dressing was intact. LABS: White count 8, hemoglobin and hematocrit 9 and 32, platelets 256, potassium 3.4. Otherwise negative. PROBLEM LIST: 1. Colon cancer, T3 N0 M0 colonic adenocarcinoma. Oncology, I think is recommending outpatient chemo. The only thing is she is planning to go home with hospice, but we will continue to follow. Is not stable for chemo right now from what I understand. 2. Gastrointestinal bleed, secondary to cancer. That has resolved. Hemoglobin and hematocrit is stable. It has dropped a bit since yesterday, but is about the same as it was the day before. 3. Gastritis. She is on proton pump inhibitor. 4. Atrial fibrillation. She is on Plavix, sotalol and Lovenox. She is not on anticoagulation. We will address that closer to baseline. 5. Vascular dementia. Kind of intermittently confused, but overall seems better. 6. Disposition: I think from what I understand, we are looking at going home on Sunday, possibly with hospice. I will talk to Dr. Medina about that. 7. Fluid, electrolytes, nutrition. She is not eating very much at all. We will get a Clinimix and see how she does with that. cc: Dominick Herman MD
[2018-07-26] MEDS: CLINIMIX E 4.25%-5% SOLUTION 1,000 ML IV SCH (17:58)
[2018-07-26] MEDS: DULCOLAX PR SCH (21:03)
[2018-07-26] MEDS: ELAVIL PO SCH (21:03)
[2018-07-26] MEDS: MEGACE LIQUID PO SCH (21:03)
[2018-07-27] MEDS: TYLENOL PO SCH ×3 (03:41→21:42)
[2018-07-27] MEDS: PROTONIX PO SCH (06:23)
[2018-07-27 07:22] LABS: BASO# 0.03 X1000 (0.0-0.2); BASO% 0.3 % (0.0-0.8); EOS% 2.3 % (0.0-10.0); HEMATOCRIT 32.7 % (37.0-47.0); HEMOGLOBIN 9.9 g/dL (12.0-16.0); IMM GRAN# 0.07 X1000 (0.0-0.04); IMM GRAN% 0.8 % (0.0-0.5); LYMPH% 34.2 % (20.5-51.1); MCH 26.5 PG (27-31); MCHC 30.3 g/dL (33-37); MCV 87.4 FL (81-99); MONO# 0.82 X1000 (0.11-0.59); MONO% 9.3 % (1.7-9.3); MPV 9.1 FL (7.4-10.4); NEUT# 4.66 X1000 (1.4-6.5); NEUT% 53.1 % (42.2-75.2); PLT 234 X1000 (130-400); RBC 3.74 XMIL (4.2-5.4); RDW 15.8 % (11.5-14.5); WBC 8.78 X1000 (4.8-10.8)
[2018-07-27] MEDS: DILAUDID IV PRN ×4 (07:32→18:29)
[2018-07-27 07:34] LABS: AGAP 10; BUN 11 mg/dL (8-22); CALCIUM 8.3 mg/dL (8.8-10.2); CHLORIDE 105 mmol/L (98-107); COSMO 272; CREATININE 0.4 mg/dL (0.5-0.9); ESTIMATED GFR > 60; GLUCOSE 117 mg/dL (70-104); MAGNESIUM 1.9 mg/dL (1.5-2.7); POTASSIUM 3.8 mmol/L (3.5-5.1); SODIUM 136 mmol/L (136-145); TCO2 21 mmol/L (25-35)
[2018-07-27] MEDS: OXY IR PO PRN ×4 (08:41→18:29)
[2018-07-27] MEDS: PERIDEX MT SCH ×2 (08:45→21:55)
[2018-07-27] MEDS: CLINIMIX E 4.25%-5% SOLUTION 1,000 ML IV SCH (08:45)
[2018-07-27] MEDS: MEGACE LIQUID PO SCH ×2 (08:45→21:55)
[2018-07-27] MEDS: BETAPACE PO SCH ×2 (08:46→21:55)
[2018-07-27] MEDS: FERROUS SULFATE PO SCH (08:46)
[2018-07-27] MEDS: LIDODERM TOP SCH (08:46)
[2018-07-27] MEDS: COLACE PO SCH ×2 (08:46→21:49)
[2018-07-27] MEDS: FOLIC ACID PO SCH (08:46)
[2018-07-27] MEDS: LOVENOX SUBQ SCH (08:46)
[2018-07-27] MEDS: ZOFRAN IV PRN (13:07)
--- NOTE | 2018-07-27 16:03 | GENERAL SURGERY PROGRESS NOTE ---
DATE: 07/27/2018 She is 5 days after a left colectomy. She doing generally well. She is afebrile. Hemodynamics are good. She has been taking p.o. intake in, her bowels have moved. Her wound is fine. She could be discharged from a surgical point of view to follow up with Dr. Torres the end of next week for staple removal. cc: Dae Jansen MD
[2018-07-27] MEDS ORDERED: SODIUM CHLORIDE 0.9% INJ ONE (17:36)
[2018-07-27] MEDS ORDERED: PROTONIX IV ONE (17:36)
[2018-07-27 18:01] LABS: HEMATOCRIT 32.1 % (37.0-47.0); HEMOGLOBIN 9.8 g/dL (12.0-16.0)
--- NOTE | 2018-07-27 19:34 | PROGRESS NOTE ---
DATE: 07/27/2018 SUBJECTIVE: She has been doing okay, a little bit less responsive than usual, except today she has developed, her daughter feels, like it is pallor, more weakness, abdominal cramping, and she has black, tarry diarrhea. Nurse feels smell consistent with hematochezia and she was placed in treatment. OBJECTIVE DATA: Vital Signs: Her blood pressure is 104/51, heart rate 59, respiratory rate 18, temperature 98.4. Cardiovascular: Regular rate and rhythm. Pulmonary: Bilateral breath sounds clear to auscultation. GI: Was soft, nontender, nondistended. Bowel sounds are positive. Extremity: Exam no clubbing or cyanosis. Lymphatic exam: No peripheral edema. Neurological: Nonfocal. LABORATORY DATA: Her hemoglobin and hematocrit is stable, but that was before she started having bleeding. Her white count is 8, hemoglobin and hematocrit 9.9 and 32, platelets 234. Basic was normal. ASSESSMENT AND PLAN: 1. Gastrointestinal bleed, recurrent. At this point, it may be an upper gastrointestinal bleed. Her EGD was normal or had mild gastritis. She has been on Protonix. She really has not been on any NSAIDs, but she has been here and has a diagnosis of colon cancer and certainly could have a stress ulcer despite gastrointestinal prophylaxis because she has been on Protonix. We will hold the Lovenox. Initiate Protonix drip. I have called Dr. Red. He will come evaluate for endoscopy. I will keep her n.p.o. after midnight. We will move her to a critical care setting just for monitoring. She is a Do Not Resuscitate, but it is going to be careful. 2. Colon adenocarcinoma, T3. Dr. Medina is following surgically. She is doing okay, although now she is having a new issue. Plan will be for outpatient chemotherapy. 3. Atrial fibrillation. She is on Plavix, sotalol and Lovenox. This is her third episode of bleeding. I have stopped all the antiplatelets. She is not on Plavix now and I have stopped the Lovenox. She is on sotalol. DISPOSITION: Pending her clinical status. Discussed at length with family. Very adamant that no aggressive measures, by that, meaning no life sustaining measures. I think they are okay with endoscopy if she does not have profound bleeding, but no ventilator anything of that nature. We will continue to follow her closely. cc: Dominick Herman MD
[2018-07-27 20:13] LABS: AGAP 9; ALB/GLOB RATIO 0.9; ALBUMIN 2.6 g/dL (3.5-5.0); ALKALINE PHOSPHATASE 75 U/L (32-104); BUN 15 mg/dL (8-22); CALCIUM 8.3 mg/dL (8.8-10.2); CHLORIDE 103 mmol/L (98-107); COSMO 268; CREATININE 0.5 mg/dL (0.5-0.9); ESTIMATED GFR > 60; GLUCOSE 110 mg/dL (70-104); GOT 6 U/L (10-30); GPT < 5 U/L (10-36); POTASSIUM 3.7 mmol/L (3.5-5.1); SODIUM 133 mmol/L (136-145); TCO2 21 mmol/L (25-35); TOTAL BILIRUBIN 0.21 mg/dL (0.20-1.00); TOTAL PROTEIN 5.6 g/dL (6.3-8.3)
[2018-07-27] MEDS: DULCOLAX PR SCH (21:48)
[2018-07-27] MEDS: ELAVIL PO SCH (21:55)
[2018-07-28] MEDS: PROTONIX 80 MG in NS 80 ML IV SCH ×3 (01:15→18:20)
[2018-07-28] MEDS: DILAUDID IV PRN ×5 (02:04→21:22)
[2018-07-28] MEDS: TYLENOL PO SCH ×3 (05:06→21:21)
[2018-07-28 06:18] LABS: BASO# 0.02 X1000 (0.0-0.2); BASO% 0.2 % (0.0-0.8); EOS# 0.19 X1000 (0.0-0.7); EOS% 2.1 % (0.0-10.0); HEMATOCRIT 32.5 % (37.0-47.0); IMM GRAN# 0.11 X1000 (0.0-0.04); IMM GRAN% 1.2 % (0.0-0.5); LYMPH# 3.54 X1000 (1.2-3.4); LYMPH% 39.2 % (20.5-51.1); MCH 26.8 PG (27-31); MCHC 30.8 g/dL (33-37); MCV 87.1 FL (81-99); MONO# 0.73 X1000 (0.11-0.59); MONO% 8.1 % (1.7-9.3); MPV 9.9 FL (7.4-10.4); NEUT# 4.43 X1000 (1.4-6.5); NEUT% 49.2 % (42.2-75.2); PLT 237 X1000 (130-400); RBC 3.73 XMIL (4.2-5.4); RDW 16.2 % (11.5-14.5); WBC 9.02 X1000 (4.8-10.8)
[2018-07-28 06:44] LABS: PHOSPHORUS 3.9 mg/dL (2.7-4.5)
[2018-07-28] MEDS: CALMOSEPTINE OINTMENT TOP PRN (08:33)
[2018-07-28] MEDS: PERIDEX MT SCH ×2 (08:33→21:37)
[2018-07-28] MEDS: MEGACE LIQUID PO SCH ×2 (08:33→21:37)
[2018-07-28] MEDS: OXY IR PO PRN (08:33)
[2018-07-28] MEDS: BETAPACE PO SCH ×2 (08:33→21:38)
[2018-07-28] MEDS: FERROUS SULFATE PO SCH (08:34)
[2018-07-28] MEDS: FOLIC ACID PO SCH (08:35)
[2018-07-28] MEDS: COLACE PO SCH ×2 (08:35→21:38)
[2018-07-28] MEDS: LIDODERM TOP SCH (09:49)
--- NOTE | 2018-07-28 12:45 | PROGRESS NOTE ---
DATE: 07/28/2018 PHYSICAL EXAMINATION: Cardiovascular: Regular rate and rhythm. Pulmonary: Bilateral breath sounds clear to auscultation. GI: Soft, nontender, nondistended. Bowel sounds are positive. LABORATORY DATA: White count 9, hemoglobin and hematocrit 10 and 32, platelets 237,000. SUBJECTIVE: Clinically, she looks well. PROBLEM LIST: 1. Potential recurrent gastrointestinal bleed. She has seems stabilized since we have started the higher dose of Protonix. No further bleeding. Her hemoglobin and hematocrit are stable. Dr. Dhillonsef to evaluate and Dr. Frederick may consider repeating endoscopy. We will defer to gastroenterology service about that. We will make her nothing per oral after midnight. 2. Colon adenocarcinoma, T3. She is stable from that standpoint but not really eating very much, and progressing with physical therapy. 3. Atrial fibrillation. Currently, she is on sotalol and no anticoagulation. I do not think she can really tolerate that at this point. 4. History of deep venous thrombosis. We are holding anticoagulation because of recurrent bleeding. Again, a case may be made for a filter in this setting but I do not think that has been pursued at this time. 5. Disposition. Plan was to get home and resume hospice care in the intermediate time. Family is aware of overall poor prognosis, at least the daughter who has medical knowledge as a nurse ct scan technician herself from what I understand. Anticipate home with hospice hopefully in the next 1 to 2 days. cc: Dominick Herman MD
--- NOTE | 2018-07-28 14:09 | PROGRESS NOTE ---
DATE: 07/28/2018 SUBJECTIVE: Ms. Hayes is Dr. Frederick's patient. I was called to see her because of her dark stool which was found to be heme positive. She was, in fact, transferred from the floor to ICU for close observation. Since transferred to ICU, she has not had any melena. In fact, she has not had any bowel movements. She is doing very well. She is tolerating her clear liquids well. She denies any abdominal pain, nausea, vomiting. Has not had any indigestion. OBJECTIVE: Vitals: Temperature 98.1 degrees, pulse 70 per minute, breathing 19, blood pressure is 114/70. Abdomen: Abdomen is postsurgical. Has midline surgical scar delia, which is well- healed and dry. No discharge noted. It was appropriately tender. No mass was noted. Bowel sounds are audible. LABORATORIES: Reviewed which showed hemoglobin today was 10, hematocrit 32.5. Yesterday, her BUN was 15 with creatinine 0.5. She had Hemoccult done yesterday which was positive. ASSESSMENT AND PLAN: Anemia. She is Postsurgical for colon resection for colon CA. She is stable and does not show any signs of active bleeding. Her Hemoccult will be positive especially with GI surgery. A single drop of blood from the anastomosis or even mild gastritis from the upper endoscopy done earlier could give her heme-positive stool. More importantly, her hemoglobin and hematocrit have not budged and have been stable. I would continue her on proton pump inhibitor, advance her diet to full liquid diet, and follow. Repeat her hemoglobin and hematocrit. Dr. Frederick will brick picker the case tomorrow. I will leave it up to him if he wants to repeat her endoscopy or follow. I have explained the findings and plan to the patient's family members. They were present at bedside. They understood. All their pertinent questions were answered. cc: Martin Red MD
[2018-07-28] MEDS: ELAVIL PO SCH (21:37)
[2018-07-28] MEDS: DULCOLAX PR SCH (21:38)
[2018-07-28] MEDS ORDERED: SODIUM CHLORIDE 0.9% INJ ONE (22:42)
[2018-07-29] MEDS: DILAUDID IV PRN ×3 (03:23→09:41)
[2018-07-29] MEDS: TYLENOL PO SCH ×2 (04:35→13:23)
[2018-07-29] MEDS: CALMOSEPTINE OINTMENT TOP PRN (04:40)
[2018-07-29] MEDS ORDERED: PROTONIX IV SCH (06:00)
[2018-07-29] MEDS: PERIDEX MT SCH (09:40)
[2018-07-29] MEDS: COLACE PO SCH (09:40)
[2018-07-29] MEDS: FERROUS SULFATE PO SCH (09:40)
[2018-07-29] MEDS: MEGACE LIQUID PO SCH (09:40)
[2018-07-29] MEDS: FOLIC ACID PO SCH (09:40)
[2018-07-29] MEDS: BETAPACE PO SCH (09:41)
--- NOTE | 2018-07-29 10:37 | GASTROENTEROLOGY PROGRESS NOTE ---
DATE: 07/29/2018 SUBJECTIVE: The patient is resting in bed. Her family is at bedside. The patient has decreased p.o. intake. She has lack of appetite. She has moved her bowels. OBJECTIVE: Vital signs: Temperature 98.6 degrees, pulse of 64, respiratory rate of 14, blood pressure 132/58, saturating 98% on room air. General Appearance: Moderately-built, moderately nourished, lying in bed, in no acute distress. HEENT: Mild pallor. No icterus. Neck: Supple. Abdomen: Midline surgical incision noted. Abdomen soft, nondistended. No guarding. Extremities: No cyanosis, clubbing. Neurologic: Alert, awake, and answers questions. LABORATORIES: Hemoglobin and hematocrit is 10 and 32.5, white count of 9.02, platelet count of 237,000. Phosphorus 3.9, magnesium 2. Stool recheck on 07/27 was positive Hemoccult. IMPRESSION AND PLAN: 1. Colon adenocarcinoma T3. She is status post surgery. Dr. Torres is following. 2. Decreased p.o. intake. I encouraged the patient to improve her oral intake. We will start her on supplementation, and she is also on Megace. 3. Anemia. She will continue iron sulfate once daily. 4. Gastrointestinal prophylaxis with PPIs. 5. Positive Hemoccult likely secondary to recent colon resection. Continue to follow the hematocrit. 6. Constipation. She will continue on Dulcolax once daily and Colace 100 mg p.o. b.i.d. 7. Abdominal pain from recent surgery. She is on oxycodone 5 mg every 3 hours as needed. 8. Malnutrition. If patient continues to have poor oral intake, then we may have to start her on peripheral parenteral nutrition versus TPN. 9. Above plan was discussed with the patient and family at bedside and all questions answered. cc: MD Adrián Courtney MD Gregory S. Cheatham, MD
--- NOTE | 2018-07-29 12:48 | DISCHARGE SUMMARY ---
ADMISSION DATE: 07/15/2018 DISCHARGE DATE: 07/29/2018 DISPOSITION: Home with hospice. FOLLOWUP: 1. Dr. Austin. 2. Dr. Torres. 3. Dr. Frederick. 4. Dr. Medina. CONSULTATIONS DURING THIS ADMISSION: 1. Surgery was consulted. Patient was seen by Dr. Torres. Followed up by Dr. Jansen and Dr. Berry. 2. GI was consulted. Patient was seen by Dr. Pena and Dr. Frederick. 3. Hematology/Oncology was consulted. The patient was seen by Dr. Medina. INVASIVE PROCEDURES DONE DURING THIS ADMISSION: 1. An initial upper GI was done which was unremarkable. 2. A colonoscopy was done 07/18/[address] Frederick which showed an obstructing mass at about 70 cm from the anal verge. 3. An open left colectomy was done by Dr. Torres on 07/22/2018. PATHOLOGY REPORT: Shows an invasive adenocarcinoma (4.5 cm, moderately differentiated, extending into the pericolic adipose tissue). The margins were negative for carcinoma. The lymph nodes were negative for metastatic carcinoma (0/18). The pathology staging was pT3/pN0. ADMISSION DIAGNOSES: 1. Gastrointestinal bleed. 2. Atrial fibrillation. 3. Hypokalemia. 4. Hypertension. DIAGNOSES AT THE TIME OF DISCHARGE: 1. Gastrointestinal bleed secondary to adenocarcinoma. Patient is status post left hemicolectomy. 2. History of atrial fibrillation, currently rate controlled. 3. History of deep venous thromboses. 4. Diabetes mellitus. 5. Peripheral vascular disease. 6. Protein calorie malnutrition. DISCHARGE MEDICATIONS: 1. Metformin 500 b.i.d. 2. Clopidogrel 75 mg b.i.d. 3. Amitriptyline 100 mg p.o. at bedtime. 4. Sotalol 80 mg b.i.d. 5. Furosemide 40 mg daily. 6. Brainard. 7. Cilostazol 100 mg b.i.d. 8. Pantoprazole 40 mg daily. 9. Docusate 100 mg b.i.d. 10. Iron sulfate 325 p.o. daily. 11. Folic acid 1 mg daily. 12. Megace 400 mg b.i.d. PRESENTING COMPLAINT: Blood in the stool. HISTORY OF PRESENTING COMPLAINT: Ms. Hayes is a 78-year-old, female who normally sees Dr. Austin. She was recently discharged from the hospital because of atrial fibrillation, RVR. Came back because of a rectal bleed. Upon presentation, the patient was evaluated. Stool blood was positive. She was subsequently admitted for further medical evaluation and care. HOSPITAL COURSE: The patient was admitted to the medical floor. Multiple subspecialties were consulted, among them GI. Initial EGD was done. It was negative. A colonoscopy was subsequently done which revealed an obstructing mass at about 70 cm from the anal verge. Surgery was consulted and an open left hemicolectomy with primary anastomosis was done by Dr. Torres. Postoperatively, Ms. Hayes continued to have a very slow recovery. Physical therapy was consulted. She has been taking a few bites of her food. A barium swallow was done which was really unremarkable. This was all attributed to the fact that she is remarkably weak from the underlying disease. Ms. Hayes was already under [facility] so they were subsequently consulted. She has been fairly stable throughout the hospital course, of course with extremely poor prognosis. She is going to return back home under [facility] care. All her home medications have all been restarted. The patient is supposed to follow up with Dr. Torres as well as Dr. Frederick/Dr. Pena and her primary care doctor. Today, she referred to be feeling okay. There are two family members at the bedside at the time of the encounter. Her blood pressure is currently 132/58, pulse is 64, respirations are 14, temperature is 98.6 degrees, and patient was saturating 99% on room air. Physical exam is unremarkable. On the abdominal wall, there is a fresh surgical wound which is well affronted with surgical clips. There are no secretions, no bleeding. The wound looks very clean. Ms. Hayes is therefore medically stable for discharge and will follow up with the above-stated subspecialties and her primary care. All the discharge instructions have been discussed with her and she voices understanding. The two gentleman at the bedside also voiced understanding. Time spent for discharge was 36 minutes. cc: MD Jagdish Albright MD Jason R. Seale, MD Manish Arora, MD Sammy Becdach, MD
[2018-07-29] MEDS: OXY IR PO PRN (13:22)
[2018-07-29 13:29] VITALS: BP 102/75
== END 2018-07-29 14:38 | disposition hospice, home (50) | DRG 330 ==
LOC: SUPCPDRO → ED 19:07 → 3N 07-16 00:21 → SUATTDRO 07-16 00:21 → 3N 07-16 05:30 → ICU 07-27 19:04 → 4N 07-29 06:02
PROVIDERS: ATTEND Internal Medicine
CPT/HCPCS: 70553; 74178; 74230; 80048; 80053; 81001; 82270; 82272; 82378; 82607; 82728; 82746; 82784; 83540; 83550; 83735; 84100; 84155; 84165; 84443; 85014; 85018; 85025; 85027; 85610; 85730; 86301; 86334; 86850; 86900; 86901; 88305; 88309; 88313; 92610; 92611; 93005; 93010; 94761; 94799; 97116; 97162; 97530; 99285; A9270; A9579; C9113; J0330; J1100; J1170; J1335; J1650; J1756; J2270; J2405; J3010; J3480; J7030; J7050; J7121; Q9967; S0164; S0179